=== PATIENT | female | born 1965 | race Caucasian/White ===

== ENCOUNTER → 2017-09-25 | Outpatient (CLI) | payer BC, OTHER ==
[~2017-09-25] MED LIST: ONDA4TAB7 SL
--- NOTE | 2017-09-25 18:15 | DIAGNOSTIC IMAGING REPORT ---
CHEST 2 VIEWS ROUTINE CLINICAL HISTORY: POSSIBLE PNEUMONIA dyspnea COMPARISON STUDY: 06/22/2013 FINDINGS: The bones soft tissues and hemidiaphragms are normal. The cardiomediastinal silhouette is normal. The lungs are clear. The pulmonary vasculature is normal. IMPRESSION: Negative chest. The above report was generated using voice recognition software. It may contain grammatical, syntax or spelling errors. Electronically signed by: Eliseo Hutchinson M.D. 09/25/2017 6:14 PM Dictated Date/Time: 09/25/2017 6:14 PM
== END | disposition home or self-care (01) ==
LOC: C.RAD 17:31
PROVIDERS: ATTEND Family Medicine
DX: R05 Cough (principal)

== ENCOUNTER 2021-05-22 12:35 | Inpatient (IN) ==
[2021-05-22 13:55] LABS: Basophils # (auto) 0.05 K/uL (0-0.2); Basophils % (auto) 0.5 %; Eosinophils # (auto) 0.11 K/uL (0-0.5); Hematocrit (blood only) 45.3 % (37-47); Hemoglobin 15.4 g/dL (12.0-16.0); Immature Granulocytes # (auto) 0.02 K/uL (0.00-0.02); Immature Granulocytes % (auto) 0.2 %; Lymphocytes # (auto) 1.14 K/uL (1.2-3.4); Lymphocytes % (auto) 10.8 %; Mean Corpuscular Hemoglobin 31.9 pg (25-34); Mean Corpuscular Volume 93.8 fL (80-100); Mean Platelet Volume 9.6 fL (7.4-10.4); Monocytes # (auto) 0.74 K/uL (0.11-0.59); Neutrophils % (auto) 80.5 %; Platelet Count 265 K/uL (130-400); RDW Coefficient of Variation 12.3 % (11.5-14.5); RDW Standard Deviation 42.3 fL (36.4-46.3); Red Blood Count 4.83 M/uL (4.2-5.4); White Blood Count 10.56 K/uL (4.8-10.8)
[2021-05-22] MEDS ORDERED: MoRPHine SULFATE 2 MG/ML CARP IV STA (14:17)
[2021-05-22] MEDS ORDERED: ONDANSETRON INJ 2 MG/ML 2 ML VIAL IV STA (14:17)
[2021-05-22] MEDS ORDERED: KETOROLAC TROMETHAMINE 15 MG/ML VIAL IV STA (14:17)
--- NOTE | 2021-05-22 14:28 | Emergency Department Note ---
Impression & Plan Lower abdominal pain, Diverticulitis, Colonic diverticular abscess ED Provider Note NAME: DEBI SIERRA AGE: 55 SEX: F : 1965 ARRIVES VIA: Walk-In INFORMANT: [Patient] ED PROVIDER(S): [Niko Suh MD] CHIEF COMPLAINT: Abdominal pain HISTORY OF PRESENT ILLNESS: The patient is a 55-year-old female presents to the ER with about a week of lower abdominal pain. The pain has at times been severe at a 9/10. The pain does seem somewhat better when she moves her bowels. She has had some loose stools. No urinary or vaginal complaints. No fever, no vomiting. She has not suffered trauma. The patient states that she had a sonogram of her abdomen today, she is not sure of the results. She had lab work last week showing a slight white blood cell count elevation. Today, she was seen by GI and sent to the ER for evaluation and CT scan. REVIEW OF SYSTEMS: See HPI for pertinent positives and negatives. A total of ten systems were reviewed and were otherwise negative. PMHx/PSHx: See Below SOCIAL HISTORY: See Below. PHYSICAL EXAM: GENERAL: Patient is in no acute distress. HEENT: No acute trauma, normocephalic atraumatic, mucous membranes moist, no nasal congestion, no scleral icterus. NECK: No stridor, no adenopathy, no meningismus, trachea is midline. LUNGS: Clear to auscultation bilaterally, no wheeze, no rhonchi, breath sounds equal. HEART: Without murmurs gallops or rubs, regular rate and rhythm. ABDOMEN: Soft, moderately tender in the left lower quadrant, bowel sounds positive, no hernias, no peritonitis. EXTREMITIES: No cyanosis or edema, full range of motion of all the joints without pain or difficulty, no signs for acute trauma. NEUROLOGIC: Oriented x 3, no acute motor or sensory deficits, no focal weakness. SKIN: No rash, no jaundice, no diaphoresis. DIFFERENTIAL DIAGNOSIS: Appendicitis, ovarian cyst, ovarian torsion, ectopic , diverticulitis, UTI, obstruction, mesenteric ischemia, aortic pathology, inflammatory bowel disease, renal colic, PUD, pancreatitis, biliary pathology, hernia, volvulus, constipation, as well as other pathologies. EMERGENCY DEPARTMENT COURSE/PROCEDURES: MEDICAL DECISION MAKING: There is no leukocytosis or concerning anemia. There is a normal platelet count. No significant electrolyte abnormality or renal failure. No worrisome liver enzyme elevation. No evidence for pancreatitis. testing is negative. Urinalysis does not show infection. Covid testing is negative. Abdominal and pelvis CT shows diverticulitis with a small 3 cm diverticular abscess. On exam, the patient was not toxic or febrile. She did not have peritonitis. The patient was ordered for IV Toradol for pain, she was ordered for IV morphine for pain. She was ordered for IV Zofran for nausea. She was ordered for IV Unasyn as antibiotic coverage. I did speak with general surgery. The patient does not need acute surgical intervention. IV antibiotics, a medical admission were suggested. I spoke to the patient about her findings, I spoke with the case therapist. The on-call hospitalist was consulted. Past Med/Surg History Medical History Kidney stones Renal colic Right ureteral stone Surgical History History of lithotripsy Social History Smoking Status: Never smoker Second Hand Exposure: No; Do You Dip or Chew Tobacco: No; Hx Alcohol Use: Yes Alcohol type: wine Hx Substance Use: No Preferred Language: Swedish Communication Ability: Effective Muffler Installer Required: No Beliefs That Will Affect Care: None Current Living Situation: Spouse Feels Safe at Home: Yes Safety Concerns: Feels Safe At This Time Assistive Devices: Contacts and Glasses Allergies Allergies Allergy/AdvReac Type Severity Reaction Status Date / Time No Known Allergies Allergy Unknown Verified 05/22/21 16:04 Home Meds Home Medications Medication Instructions Recorded Confirmed docusate sodium 100 mg capsule 100 mg PO QPM 05/22/21 05/22/21 (Stool Softener) multivitamin 1 tab PO DAILY 05/22/21 05/22/21 Results & Data (ED) Vital Signs Vital Signs - 24 hr 05/22/21 12:41 05/22/21 13:46 05/22/21 15:28 Temperature 37 C Temperature Source Temporal Artery Scan Pulse Rate 95 H Pulse Rate [Right Finger] 76 Respiratory Rate 18 18 Respiratory Effort / Characteristics Non-Labored Spontaneous Non-Labored Spontaneous Respiratory Depth Normal Normal Respiratory Pattern Regular Regular Blood Pressure 112/78 Blood Pressure [Right Arm] 111/71 Blood Pressure Mean 89 Blood Pressure Mean [Right Arm] 84 Blood Pressure Position Sitting Blood Pressure Position [Right Arm] Lying Pulse Oximetry 98 96 Oxygen Delivery Method Room Air Room Air Room Air Sepsis Recent Fever Within 48 Hours No Sepsis New/Unexplained Change in Mental Status N/A Sepsis Action Taken by Nursing No Action Required Home Medications Current Medication List: was personally reviewed by me Laboratory Data Attestation: I reviewed the patient's lab results. Result diagrams: 05/22/21 13:41 05/22/21 13:41 Lab Results 05/22/21 05/22/21 05/22/21 Range/Units 13:41 13:41 13:41 WBC 10.56 (4.8-10.8) K/uL RBC 4.83 (4.2-5.4) M/uL Hgb 15.4 (12.0-16.0) g/dL Hct 45.3 (37-47) % MCV 93.8 (80-100) fL MCH 31.9 (25-34) pg MCHC 34.0 (32-36) g/dL RDW Std Deviation 42.3 (36.4-46.3) fL RDW Coeff of Gris 12.3 (11.5-14.5) % Plt Count 265 (130-400) K/uL MPV 9.6 (7.4-10.4) fL Immature Gran % (Auto) 0.2 % Neut % (Auto) 80.5 % Lymph % (Auto) 10.8 % [place] % (Auto) 7.0 % Eos % (Auto) 1.0 % Baso % (Auto) 0.5 % Neut # (Auto) 8.50 H (1.4-6.5) K/uL Lymph # (Auto) 1.14 L (1.2-3.4) K/uL [place] # (Auto) 0.74 H (0.11-0.59) K/uL Eos # (Auto) 0.11 (0-0.5) K/uL Baso # (Auto) 0.05 (0-0.2) K/uL Immature Gran # (Auto) 0.02 (0.00-0.02) K/uL Sodium 137 (136-145) mmol/L Potassium 3.9 (3.5-5.1) mmol/L Chloride 100 (98-107) mmol/L Carbon Dioxide 28 (21-32) mmol/L Anion Gap 9 (3-11) BUN 7 (6-23) mg/dl Creatinine 0.57 L (0.6-1.2) mg/dl Est Cr Clr Drug Dosing 85.2 ml/min Est GFR ( Amer) 121.0 ml/min Est GFR (Non-Af Amer) 104.4 ml/min BUN/Creatinine Ratio 12.3 (10-20) Glucose 90 (70-99(Fasting)) mg/dl Calcium 9.4 (8.5-10.1) mg/dl Total Bilirubin 0.4 (0.2-1.0) mg/dl AST 16 (13-39) U/L ALT 13 (7-52) U/L Alkaline Phosphatase 69 (34-104) U/L Total Protein 7.8 (6.0-8.3) gm/dl Albumin 4.4 (3.4-5.0) gm/dl Globulin 3.4 (2.5-4.0) gm/dl Albumin/Globulin Ratio 1.3 (0.9-2) Lipase 52 (11-82) U/L HCG, Qual Negative (Negative) Urine Color Urine Appearance (Clear) Urine pH (4.5-7.5) Ur Specific [place] (1.000-1.030) Urine Protein (Negative) Urine Glucose (UA) (Negative) Urine Ketones (Negative) Urine Blood (Negative) Urine Nitrite (Negative) Urine Bilirubin (Negative) Urine Urobilinogen (Negative) Ur Leukocyte Esterase (Negative) 05/22/21 Range/Units 13:55 WBC (4.8-10.8) K/uL RBC (4.2-5.4) M/uL Hgb (12.0-16.0) g/dL Hct (37-47) % MCV (80-100) fL MCH (25-34) pg MCHC (32-36) g/dL RDW Std Deviation (36.4-46.3) fL RDW Coeff of Gris (11.5-14.5) % Plt Count (130-400) K/uL MPV (7.4-10.4) fL Immature Gran % (Auto) % Neut % (Auto) % Lymph % (Auto) % [place] % (Auto) % Eos % (Auto) % Baso % (Auto) % Neut # (Auto) (1.4-6.5) K/uL Lymph # (Auto) (1.2-3.4) K/uL [place] # (Auto) (0.11-0.59) K/uL Eos # (Auto) (0-0.5) K/uL Baso # (Auto) (0-0.2) K/uL Immature Gran # (Auto) (0.00-0.02) K/uL Sodium (136-145) mmol/L Potassium (3.5-5.1) mmol/L Chloride (98-107) mmol/L Carbon Dioxide (21-32) mmol/L Anion Gap (3-11) BUN (6-23) mg/dl Creatinine (0.6-1.2) mg/dl Est Cr Clr Drug Dosing ml/min Est GFR ( Amer) ml/min Est GFR (Non-Af Amer) ml/min BUN/Creatinine Ratio (10-20) Glucose (70-99(Fasting)) mg/dl Calcium (8.5-10.1) mg/dl Total Bilirubin (0.2-1.0) mg/dl AST (13-39) U/L ALT (7-52) U/L Alkaline Phosphatase (34-104) U/L Total Protein (6.0-8.3) gm/dl Albumin (3.4-5.0) gm/dl Globulin (2.5-4.0) gm/dl Albumin/Globulin Ratio (0.9-2) Lipase (11-82) U/L HCG, Qual (Negative) Urine Color Yellow Urine Appearance Clear (Clear) Urine pH 6.0 (4.5-7.5) Ur Specific [place] 1.020 (1.000-1.030) Urine Protein Negative (Negative) Urine Glucose (UA) Negative (Negative) Urine Ketones 1+ H (Negative) Urine Blood Negative (Negative) Urine Nitrite Negative (Negative) Urine Bilirubin Negative (Negative) Urine Urobilinogen Negative (Negative) Ur Leukocyte Esterase Negative (Negative) Administered Medications Discontinued Medications Ampicillin Sodium/Sulbactam Sodium 3,000 mg/ Sodium Chloride 108 mls @ 200 m ls/hr IV NOW STA; Protocol Stop: 05/22/21 17:14 Last Admin: 05/22/21 18:02 Dose: Not Given Documented by: [id number] Piperacillin Sod/Tazobactam Sod (Zosyn) 4.5 gm in 120 mls @ 240 mls/hr IV NOW ONE Stop: 05/22/21 17:29 Last Infusion: 05/22/21 18:05 Dose: 0 mls/hr Documented by: [id number] Admin: 05/22/21 17:31 Dose: 240 mls/hr Documented by: [id number] Lactated Ringer's (Lr) 1,000 mls @ 999 mls/hr IV .Q1H1M ONE Stop: 05/22/21 18:08 Last Infusion: 05/22/21 18:45 Dose: 0 mls/hr Documented by: [id number] Admin: 05/22/21 18:20 Dose: 999 mls/hr Documented by: [id number] Ioversol (Optiray 320 100ml) 94 ml IV ONCE ONE Stop: 05/22/21 15:33 Last Admin: 05/22/21 15:32 Dose: 94 ml Documented by: [id number] Ketorolac Tromethamine (Ketorolac Tromethamine 15 Mg/Ml Vial) 15 mg IV NOW STA Stop: 05/22/21 14:18 Last Admin: 05/22/21 15:22 Dose: Not Given Documented by: [id number] Morphine Sulfate (Morphine Sulfate 2 Mg/Ml [place]) 2 mg IV NOW STA Stop: 05/22/21 14:18 Last Admin: 05/22/21 15:22 Dose: Not Given Documented by: [id number] Ondansetron HCl (Ondansetron Inj 2 Mg/Ml 2 Ml Vial) 4 mg IV NOW STA Stop: 05/22/21 14:18 Last Admin: 05/22/21 15:22 Dose: Not Given Documented by: [id number] Imaging Data Radiologist's Impression: Abdomen/Pelvis CT 05/22/21 14:17 CT SCAN OF THE ABDOMEN AND PELVIS WITH IV CONTRAST CLINICAL HISTORY: Lower abdominal pain. COMPARISON STUDY: Abdominal CT dated 05/27/2013. TECHNIQUE: Following the IV administration of 94 cc of Optiray 320, CT scan of the abdomen and pelvis is performed from the lung bases to the proximal femora. Images are reviewed in the axial, sagittal, and coronal planes. IV contrast was administered without complication. A dose lowering technique was utilized adhering to the principles of ALARA. CT DOSE: 241.03 mGy.cm FINDINGS: Lung bases: The heart is normal in size and without pericardial effusion. The lung bases are clear noting dependent atelectasis. Liver: The contrast-enhanced liver is normal in size, contour, and attenuation. There is no intrahepatic biliary ductal dilatation. The hepatic veins and portal veins are patent. Gallbladder: Unremarkable. Spleen: Normal in size and attenuation. Pancreas: Unremarkable. Adrenal glands: Unremarkable. Kidneys: The contrast enhanced kidneys are normal in size and without hydronephrosis. The kidneys enhance symmetrically. There is a 3 mm nonobstructing left renal calculus. Abdominal vasculature: The abdominal aorta is normal in course and caliber. Bowel: There is mild to moderate sigmoid diverticulosis. There is wall thickening with pericolonic inflammation and fluid involving the lower sigmoid consistent with acute diverticulitis. A diverticular abscess is seen above the sigmoid colon on image #281. This measures 2.5 x 1.9 x 3.0 cm. Mild to moderate fecal retention is seen throughout the colon. No obstruction is identified. The appendix is well-visualized and normal. Peritoneum: There is no intraperitoneal free air or abdominal ascites. There is a fat-containing umbilical hernia. Lymphadenopathy: None. Pelvic viscera: The bladder is decompressed and not well evaluated. The uterus and adnexa are normal as visualized. Skeletal structures: No lytic or blastic lesions are seen. IMPRESSION: 1. There is evidence of sigmoid diverticulitis with a 3.0 cm diverticular absces s. See above. 2. No intraperitoneal free air is identified. 3. Left-sided nephrolithiasis. 4. Additional findings as above. ACT 112: Negative or not required by law. Electronically signed by: Niko Guevara M.D. 05/22/2021 3:42 PM US abdomen complete CLINICAL HISTORY: ABD PAIN TECHNIQUE: Real-time sonographic images of the abdomen were obtained. COMPARISON: None available at the time of this dictation. FINDINGS: The liver is diffusely echogenic in appearance with poor ultrasound penetration, with normal contour, which is consistent with fatty infiltration. There is no intrahepatic ductal dilatation. Gallbladder and biliary tree: Gallbladder polyps are seen measuring up to 0.3 cm. Common bile duct diameter is 0.3 cm. The right kidney measures 10.1 cm in length. The left kidney measures 10.4 cm in length. There is no evidence of hydronephrosis or mass in the bilateral kidneys. Spleen: Spleen measures 9.6 cm in length. Splenule is incidentally noted. The pancreas was normal where visualized without calcification, mass, or ductal dilation. No free fluid was seen in the abdomen. IMPRESSION: Normal study. ACT 112: Negative or not required by law. Electronically signed by: Stephan Barajas M.D. 05/22/2021 9:46 AM Discharge Plan Visit Data Chief Complaint: Abdominal Pain Stated Complaint: SEVERE ABDOMINAL PAIN ED Provider: Niko Suh Discharge Problem: Lower abdominal pain, Diverticulitis, Colonic diverticular abscess Patient Disposition: Admitted As Inpatient Condition: Fair Discharge Instructions Interventions: ED Discharge Assessment Last Done: 05/22/21 18:22
[2021-05-22 14:38] LABS: Albumin Globulin Ratio 1.3 (0.9-2); Albumin Level 4.4 gm/dl (3.4-5.0); BUN Creatinine Ratio 12.3 (10-20); Bilirubin,Total 0.4 mg/dl (0.2-1.0); Calcium 9.4 mg/dl (8.5-10.1); Creatinine Clr Calc Pharmacy 85.2 ml/min; Est GFR (Non-African American) 104.4 ml/min; Globulin 3.4 gm/dl (2.5-4.0); Potassium 3.9 mmol/L (3.5-5.1); Total Protein 7.8 gm/dl (6.0-8.3)
[2021-05-22 14:42] LABS: Pregnancy Test, Serum Negative (Negative)
[2021-05-22] MEDS ORDERED: OPTIRAY 320 100ml IV ONE (15:32)
--- NOTE | 2021-05-22 15:43 | CT Scan Report ---
CT SCAN OF THE ABDOMEN AND PELVIS WITH IV CONTRAST CLINICAL HISTORY: Lower abdominal pain. COMPARISON STUDY: Abdominal CT dated 05/27/2013. TECHNIQUE: Following the IV administration of 94 cc of Optiray 320, CT scan of the abdomen and pelvi s is performed from the lung bases to the proximal femora. Images are reviewed in the axial, sagittal , and coronal planes. IV contrast was administered without complication. A dose lowering technique wa s utilized adhering to the principles of ALARA. CT DOSE: 241.03 mGy.cm FINDINGS: Lung bases: The heart is normal in size and without pericardial effusion. The lung bases are clear no ting dependent atelectasis. Liver: The contrast-enhanced liver is normal in size, contour, and attenuation. There is no intrahepa tic biliary ductal dilatation. The hepatic veins and portal veins are patent. Gallbladder: Unremarkable. Spleen: Normal in size and attenuation. Pancreas: Unremarkable. Adrenal glands: Unremarkable. Kidneys: The contrast enhanced kidneys are normal in size and without hydronephrosis. The kidneys enh ance symmetrically. There is a 3 mm nonobstructing left renal calculus. Abdominal vasculature: The abdominal aorta is normal in course and caliber. Bowel: There is mild to moderate sigmoid diverticulosis. There is wall thickening with pericolonic in flammation and fluid involving the lower sigmoid consistent with acute diverticulitis. A diverticular abscess is seen above the sigmoid colon on image #281. This measures 2.5 x 1.9 x 3.0 cm. Mild to mod erate fecal retention is seen throughout the colon. No obstruction is identified. The appendix is we ll-visualized and normal. Peritoneum: There is no intraperitoneal free air or abdominal ascites. There is a fat-containing umbi lical hernia. Lymphadenopathy: None. Pelvic viscera: The bladder is decompressed and not well evaluated. The uterus and adnexa are normal as visualized. Skeletal structures: No lytic or blastic lesions are seen. IMPRESSION: 1. There is evidence of sigmoid diverticulitis with a 3.0 cm diverticular abscess. See above. 2. No intraperitoneal free air is identified. 3. Left-sided nephrolithiasis. 4. Additional findings as above. ACT 112: Negative or not required by law. Electronically signed by: Niko Guevara M.D. 05/22/2021 3:42 PM
[2021-05-22 15:52] LABS: Appearance Urine Clear (Clear); Bilirubin Urine Negative (Negative); Blood Urine Negative (Negative); Color Urine Yellow; Glucose Urine UA Negative (Negative); Ketones Urine 1+ (Negative); Leukocyte Esterase Urine Negative (Negative); Nitrite Urine Negative (Negative); Protein Urine Negative (Negative); Urobilinogen Urine Negative (Negative)
[2021-05-22] MEDS ORDERED: AMPICILLIN/SULBACTAM SOD 3,000 MG in 0.9 % SODIUM CHLORIDE 100 ML IV STA (16:42)
[2021-05-22] MEDS ORDERED: PIPERACILLIN/TAZOBACTAM 4.5 GM in DEXTROSE 5% 100 ML IV ONE (16:57)
[2021-05-22] MEDS ORDERED: PIPERACILL/TAZOBAC CONSULT ACTIVE PRN (16:57)
[2021-05-22] MEDS ORDERED: PIPERACILLIN/TAZOBACTAM 4.5 GM/120 ML BAG IV ONE (17:00)
--- NOTE | 2021-05-22 17:07 | History & Physical Report ---
Date of Service May 22, 2021 Assessment & Plan (1) Acute diverticulitis: Plan: IV Zosyn NPO LR @ 125 ml/hr Consult surgery due to presence of 3.0cm abscess Plan: VTE Prophylaxis - SCDs, low risk Diet - NPO Disposition - admit to med/surg Admission and Anticipated Discharge Date Admission Date: May 22, 2021 History of Present Illness Chief Complaint: Abdominal pain Primary Care Provider: Le Gutierrez MD Asya Villar is a 55 year old female who presents to the ER with abdominal pain. She reports severe lower abdominal pain, worse on the left side on palpation. Pain has been ongoing for 1 week, but intermittent during this time. Worse after eating. Better on passing gas. She hasn't been eating much due to association with pain. No fever or chills. No prior history of diverticulitis. Prior colonoscopy in 2019 - performed by Dr Limon - patient reports normal at that time. Came to the ER today due to worsening pain especially with US organised by her PCP. In the ER CT A/P showed sigmoid diverticulitis with 3.0cm diverticular abscess, WBC 10.56. She was referred to medicine for admission and ongoing management of sigmoid diverticulitis. Allergies Allergy/AdvReac Type Severity Reaction Status Date / Time No Known Allergies Allergy Unknown Verified 05/22/21 16:04 Home Medications Medication Instructions Recorded Confirmed Type docusate sodium 100 mg capsule 100 mg PO QPM 05/22/21 05/22/21 History (Stool Softener) multivitamin 1 tab PO DAILY 05/22/21 05/22/21 History Past Med/Surg History Medical History Kidney stones Renal colic Right ureteral stone Surgical History History of lithotripsy Social History Smoking Status: Never smoker Second Hand Exposure: No; Do You Dip or Chew Tobacco: No; Hx Alcohol Use: Yes Alcohol type: wine Hx Substance Use: No Preferred Language: Montserratian Communication Ability: Effective Director Account Management Required: No Beliefs That Will Affect Care: None Current Living Situation: Spouse Feels Safe at Home: Yes Safety Concerns: Feels Safe At This Time Assistive Devices: None Review of Systems Review of Systems: All systems reviewed & are unremarkable except as noted in HPI & below Physical Exam Constitutional: WD/WN, vitals as above no acute distress ENMT: external ear and nose normal, oropharynx normal Neck: trachea midline, no thyromegaly Respiratory: normal respiratory effort, lungs clear to auscultation Cardiovascular: RRR, no murmur, no edema Gastrointestinal (Abdomen): Inspection/Auscultation: normal bowel sounds Percussion/Palpation: + abdomen tender (LLQ) and abdomen soft; no guarding and abdomen not rigid Musculoskeletal: no cyanosis or clubbing, extremities motor strength 5/5 Skin: no rashes, warm and dry Neurologic: moves all extremities and awake; not confused Psychiatric: A+Ox3, euthymic affect Genitourinary: no CVA tenderness Results & Data Results & Data ([facility]) Vital Signs (Past 12 Hours) Vital Signs Temp Pulse Pulse Resp BP BP Pulse Ox 05/22/21 15:28 76 18 111/71 96 05/22/21 12:41 37 C 95 H 18 112/78 98 Laboratory Results Abnormal lab results 05/22/21 05/22/21 05/22/21 Range/Units 13:41 13:41 13:55 Neut # (Auto) 8.50 H (1.4-6.5) K/uL Lymph # (Auto) 1.14 L (1.2-3.4) K/uL [place] # (Auto) 0.74 H (0.11-0.59) K/uL Creatinine 0.57 L (0.6-1.2) mg/dl Urine Ketones 1+ H (Negative) Diagnostic Findings CT SCAN OF THE ABDOMEN AND PELVIS WITH IV CONTRAST CLINICAL HISTORY: Lower abdominal pain. COMPARISON STUDY: Abdominal CT dated 05/27/2013. TECHNIQUE: Following the IV administration of 94 cc of Optiray 320, CT scan of the abdomen and pelvis is performed from the lung bases to the proximal femora. Images are reviewed in the axial, sagittal, and coronal planes. IV contrast was administered without complication. A dose lowering technique was utilized adhering to the principles of ALARA. CT DOSE: 241.03 mGy.cm FINDINGS: Lung bases: The heart is normal in size and without pericardial effusion. The lung bases are clear noting dependent atelectasis. Liver: The contrast-enhanced liver is normal in size, contour, and attenuation. There is no intrahepatic biliary ductal dilatation. The hepatic veins and portal veins are patent. Gallbladder: Unremarkable. Spleen: Normal in size and attenuation. Pancreas: Unremarkable. Adrenal glands: Unremarkable. Kidneys: The contrast enhanced kidneys are normal in size and without hydronephrosis. The kidneys enhance symmetrically. There is a 3 mm nonobstructing left renal calculus. Abdominal vasculature: The abdominal aorta is normal in course and caliber. Bowel: There is mild to moderate sigmoid diverticulosis. There is wall thickening with pericolonic inflammation and fluid involving the lower sigmoid consistent with acute diverticulitis. A diverticular abscess is seen above the sigmoid colon on image #281. This measures 2.5 x 1.9 x 3.0 cm. Mild to moderate fecal retention is seen throughout the colon. No obstruction is identified. The appendix is well-visualized and normal. Peritoneum: There is no intraperitoneal free air or abdominal ascites. There is a fat-containing umbilical hernia. Lymphadenopathy: None. Pelvic viscera: The bladder is decompressed and not well evaluated. The uterus and adnexa are normal as visualized. Skeletal structures: No lytic or blastic lesions are seen. IMPRESSION: 1. There is evidence of sigmoid diverticulitis with a 3.0 cm diverticular abscess. See above. 2. No intraperitoneal free air is identified. 3. Left-sided nephrolithiasis. 4. Additional findings as above. Medications Administered ER Medications Given: Toradol 15mg IV Morphine 2mg IV Ondansetron 4mg IV Code Status & VTE Plan Code Status Full VTE Prophylaxis Plan VTE Prophylaxis will be ordered: Yes PG Care Time/CCT Total # of Minutes Spent Total Time Spent with Patient: Total time spent is greater than 50% in coordination of care (as documented) at patient's floor/unit and/or counseling patient: Coding Level of Care Code 33762 Initial Inpt Care Lvl 2 Diagnoses Acute diverticulitis K57.92
[2021-05-22] MEDS ORDERED: LACTATED RINGER'S 1,000 ML IV ONE (17:08)
--- NOTE | 2021-05-22 17:35 | Surgery Consultation ---
Date of Consultation May 22, 2021 Assessment & Plan (1) Acute diverticulitis: (2) Diverticular disease of intestine with perforation and abscess: 55-year-old woman presents with diverticulitis and abscess. The abscess measures 3 cm. It is contained. She has local pain but no peritoneal signs. I discussed with her diverticulitis as well as the classification system with treatment strategies. We will start her on IV antibiotics and clear liquids. We will monitor her for now. If she does not improve or worsens, she will need a repeat CT scan. If the abscess enlarges, she may require drain placement by interventional radiology. We will continue to monitor her. History of Present Illness Reason for Consultation: Diverticulitis with abscess Requesting Physician: Niko Suh MD Attending Physician: Niko Suh MD History of Present Illness 55-year-old woman presents with 1 week history of left-sided lower quadrant abdominal pain, worsening throughout the week. She denies nausea or vomiting. She denies chest pain or shortness of breath. She denies fevers and chills. She denies changes in her bowel habits. She had a colonoscopy 2 years ago which was normal. She had an ultrasound yesterday which was exquisitely painful, which prompted the visit to the emergency department. CT scan demonstrates diverticulitis with 3 cm contained abscess Allergies Allergy/AdvReac Type Severity Reaction Status Date / Time No Known Allergies Allergy Unknown Verified 05/22/21 16:04 Home Medications Medication Instructions Recorded Confirmed Type docusate sodium 100 mg capsule 100 mg PO QPM 05/22/21 05/22/21 History (Stool Softener) multivitamin 1 tab PO DAILY 05/22/21 05/22/21 History Patient History Medical History Kidney stones Renal colic Right ureteral stone Surgical History History of lithotripsy Social History Smoking Status: Never smoker Feels Safe at Home: Yes Review of Systems Review of Systems: All systems reviewed & are unremarkable except as noted in HPI & below Physical Exam Constitutional: WD/WN, vitals as above Neck: trachea midline, no thyromegaly Respiratory: normal respiratory effort; no respiratory distress and no labored breathing Cardiovascular: Rate/Rhythm: regular rate and regular rhythm Gastrointestinal (Abdomen): Inspection/Auscultation: abdomen normal to inspection; abdomen not distended Percussion/Palpation: + abdomen tender (Left lower quadrant) and abdomen soft; no guarding and abdomen not rigid Musculoskeletal: Extremities: no cyanosis and no clubbing Skin: no rashes, warm and dry Psychiatric: A+Ox3, euthymic affect Results & Data ([facility]) Vital Signs (Past 12 Hours) Vital Signs Temp Pulse Pulse Resp BP BP Pulse Ox 05/22/21 15:28 76 18 111/71 96 05/22/21 12:41 37 C 95 H 18 112/78 98 Laboratory Results 05/22/21 05/22/21 05/22/21 Range/Units 13:55 13:41 13:41 WBC (4.8-10.8) K/uL RBC (4.2-5.4) M/uL Hgb (12.0-16.0) g/dL Hct (37-47) % MCV (80-100) fL MCH (25-34) pg MCHC (32-36) g/dL RDW Std Deviation (36.4-46.3) fL RDW Coeff of Gris (11.5-14.5) % Plt Count (130-400) K/uL MPV (7.4-10.4) fL Immature Gran % (Auto) % Neut % (Auto) % Lymph % (Auto) % [place] % (Auto) % Eos % (Auto) % Baso % (Auto) % Neut # (Auto) (1.4-6.5) K/uL Lymph # (Auto) (1.2-3.4) K/uL [place] # (Auto) (0.11-0.59) K/uL Eos # (Auto) (0-0.5) K/uL Baso # (Auto) (0-0.2) K/uL Immature Gran # (Auto) (0.00-0.02) K/uL Sodium 137 (136-145) mmol/L Potassium 3.9 (3.5-5.1) mmol/L Chloride 100 (98-107) mmol/L Carbon Dioxide 28 (21-32) mmol/L Anion Gap 9 (3-11) BUN 7 (6-23) mg/dl Creatinine 0.57 L (0.6-1.2) mg/dl Est Cr Clr Drug Dosing 85.2 ml/min Est GFR ( Amer) 121.0 ml/min Est GFR (Non-Af Amer) 104.4 ml/min BUN/Creatinine Ratio 12.3 (10-20) Glucose 90 (70-99(Fasting)) mg/dl Calcium 9.4 (8.5-10.1) mg/dl Total Bilirubin 0.4 (0.2-1.0) mg/dl AST 16 (13-39) U/L ALT 13 (7-52) U/L Alkaline Phosphatase 69 (34-104) U/L Total Protein 7.8 (6.0-8.3) gm/dl Albumin 4.4 (3.4-5.0) gm/dl Globulin 3.4 (2.5-4.0) gm/dl Albumin/Globulin Ratio 1.3 (0.9-2) Lipase 52 (11-82) U/L HCG, Qual Negative (Negative) Urine Color Yellow Urine Appearance Clear (Clear) Urine pH 6.0 (4.5-7.5) Ur Specific [place] 1.020 (1.000-1.030) Urine Protein Negative (Negative) Urine Glucose (UA) Negative (Negative) Urine Ketones 1+ H (Negative) Urine Blood Negative (Negative) Urine Nitrite Negative (Negative) Urine Bilirubin Negative (Negative) Urine Urobilinogen Negative (Negative) Ur Leukocyte Esterase Negative (Negative) 05/22/21 Range/Units 13:41 WBC 10.56 (4.8-10.8) K/uL RBC 4.83 (4.2-5.4) M/uL Hgb 15.4 (12.0-16.0) g/dL Hct 45.3 (37-47) % MCV 93.8 (80-100) fL MCH 31.9 (25-34) pg MCHC 34.0 (32-36) g/dL RDW Std Deviation 42.3 (36.4-46.3) fL RDW Coeff of Gris 12.3 (11.5-14.5) % Plt Count 265 (130-400) K/uL MPV 9.6 (7.4-10.4) fL Immature Gran % (Auto) 0.2 % Neut % (Auto) 80.5 % Lymph % (Auto) 10.8 % [place] % (Auto) 7.0 % Eos % (Auto) 1.0 % Baso % (Auto) 0.5 % Neut # (Auto) 8.50 H (1.4-6.5) K/uL Lymph # (Auto) 1.14 L (1.2-3.4) K/uL [place] # (Auto) 0.74 H (0.11-0.59) K/uL Eos # (Auto) 0.11 (0-0.5) K/uL Baso # (Auto) 0.05 (0-0.2) K/uL Immature Gran # (Auto) 0.02 (0.00-0.02) K/uL Sodium (136-145) mmol/L Potassium (3.5-5.1) mmol/L Chloride (98-107) mmol/L Carbon Dioxide (21-32) mmol/L Anion Gap (3-11) BUN (6-23) mg/dl Creatinine (0.6-1.2) mg/dl Est Cr Clr Drug Dosing ml/min Est GFR ( Amer) ml/min Est GFR (Non-Af Amer) ml/min BUN/Creatinine Ratio (10-20) Glucose (70-99(Fasting)) mg/dl Calcium (8.5-10.1) mg/dl Total Bilirubin (0.2-1.0) mg/dl AST (13-39) U/L ALT (7-52) U/L Alkaline Phosphatase (34-104) U/L Total Protein (6.0-8.3) gm/dl Albumin (3.4-5.0) gm/dl Globulin (2.5-4.0) gm/dl Albumin/Globulin Ratio (0.9-2) Lipase (11-82) U/L HCG, Qual (Negative) Urine Color Urine Appearance (Clear) Urine pH (4.5-7.5) Ur Specific [place] (1.000-1.030) Urine Protein (Negative) Urine Glucose (UA) (Negative) Urine Ketones (Negative) Urine Blood (Negative) Urine Nitrite (Negative) Urine Bilirubin (Negative) Urine Urobilinogen (Negative) Ur Leukocyte Esterase (Negative) Diagnostic Findings CT SCAN OF THE ABDOMEN AND PELVIS WITH IV CONTRAST CLINICAL HISTORY: Lower abdominal pain. COMPARISON STUDY: Abdominal CT dated 05/27/2013. TECHNIQUE: Following the IV administration of 94 cc of Optiray 320, CT scan of the abdomen and pelvis is performed from the lung bases to the proximal femora. Images are reviewed in the axial, sagittal, and coronal planes. IV contrast was administered without complication. A dose lowering technique was utilized adhering to the principles of ALARA. CT DOSE: 241.03 mGy.cm FINDINGS: Lung bases: The heart is normal in size and without pericardial effusion. The lung bases are clear noting dependent atelectasis. Liver: The contrast-enhanced liver is normal in size, contour, and attenuation. There is no intrahepatic biliary ductal dilatation. The hepatic veins and portal veins are patent. Gallbladder: Unremarkable. Spleen: Normal in size and attenuation. Pancreas: Unremarkable. Adrenal glands: Unremarkable. Kidneys: The contrast enhanced kidneys are normal in size and without hydronephrosis. The kidneys enhance symmetrically. There is a 3 mm nonobstructing left renal calculus. Abdominal vasculature: The abdominal aorta is normal in course and caliber. Bowel: There is mild to moderate sigmoid diverticulosis. There is wall thickening with pericolonic inflammation and fluid involving the lower sigmoid consistent with acute diverticulitis. A diverticular abscess is seen above the sigmoid colon on image #281. This measures 2.5 x 1.9 x 3.0 cm. Mild to moderate fecal retention is seen throughout the colon. No obstruction is identified. The appendix is well-visualized and normal. Peritoneum: There is no intraperitoneal free air or abdominal ascites. There is a fat-containing umbilical hernia. Lymphadenopathy: None. Pelvic viscera: The bladder is decompressed and not well evaluated. The uterus and adnexa are normal as visualized. Skeletal structures: No lytic or blastic lesions are seen. IMPRESSION: 1. There is evidence of sigmoid diverticulitis with a 3.0 cm diverticular abscess. See above. 2. No intraperitoneal free air is identified. 3. Left-sided nephrolithiasis. 4. Additional findings as above.
[2021-05-22] MEDS ORDERED: ONDANSETRON INJ 2 MG/ML 2 ML VIAL IV PRN (18:37)
[2021-05-22] MEDS ORDERED: ACETAMINOPHEN 1,000 MG/100 ML VIAL IV PRN (18:37)
[2021-05-22] MEDS ORDERED: MoRPHine SULFATE 4 MG/ML 1 ML CARP\\VIAL IV PRN (18:37)
[2021-05-22] MEDS: LACTATED RINGER'S 1,000 ML IV SCH (19:45)
[2021-05-22] MEDS: PIPERACILLIN/TAZOBACTAM 3.375 GM in DEXTROSE 5% 100 ML IV SCH (22:57)
[2021-05-23] MEDS: LACTATED RINGER'S 1,000 ML IV SCH ×3 (02:39→18:24)
[2021-05-23] MEDS: PIPERACILLIN/TAZOBACTAM 3.375 GM in DEXTROSE 5% 100 ML IV SCH ×3 (06:24→22:02)
--- NOTE | 2021-05-23 07:31 | Hospitalist Progress Note ---
Date of Service May 23, 2021 Assessment & Plan (1) Acute diverticulitis: Plan: Asya is a 55 year old female w/ PmHx significant for kidney stones admitted for diverticulitis with abscess. Acute Diverticulitis w/ Abscess: -CT Abd/pelv: evidence of sigmoid diverticulitis w/ 3.0cm abscess. -Given 3g Amp/sulbactam in ED. Switched to Pip/tazo 3.375g q8h. -Surgery consulted: -Continue supportive care, advance to clear liquid diet. -If worsening may consider repeat CT scan. -On LR 125ml/hr, can D/C if tolerating liquid diet. -Reassess condition in AM. Dispo: Med/Surg DVT Prophylaxis: SCDs F/E/N: Advance to clear liquid diet Consults: Surgery Code Status: Full (2) Lower abdominal pain: (3) Colonic diverticular abscess: Admission and Anticipated Discharge Date Admission Date: May 22, 2021 Supervising Physician Co-Signing Physician Notes Resident Physician Supervision Note: I independently interviewed and examined the patient and verified the yates history and physical, reviewed labs and image studies and agree with resident Dr. Quinones findings and care plan. Subjective No overnight events. Patient says she doesn't have pain at her left side anymore, or if anything may be a 1/10. Denies fevers, chills, nausea, vomiting, constipation, diarrhea. Review of Systems Review of Systems: as per subjective. Physical Exam Constitutional: WD/WN, vitals as above Eyes: PERRL, conjunctivae normal, anicteric sclerae Respiratory: normal respiratory effort, lungs clear to auscultation Cardiovascular: RRR, no murmur, no edema Gastrointestinal (Abdomen): BS+, soft, non-distended, mild tenderness to palpation left lower quadrant without guarding. Results & Data Results & Data ([facility]) Vital Signs (Past 12 Hours) Vital Signs Temp Pulse Resp BP Pulse Ox 05/22/21 22:18 36.7 C 75 17 94/58 L 96 Resident Activity Tracking Resident Involvement: Resident Care Provided Care Provided: Adult [facility]
[2021-05-23 08:21] LABS: Basophils # (auto) 0.05 K/uL (0-0.2); Basophils % (auto) 0.7 %; Eosinophils # (auto) 0.12 K/uL (0-0.5); Eosinophils % (auto) 1.6 %; Hematocrit (blood only) 37.8 % (37-47); Hemoglobin 13.3 g/dL (12.0-16.0); Immature Granulocytes # (auto) 0.02 K/uL (0.00-0.02); Immature Granulocytes % (auto) 0.3 %; Lymphocytes # (auto) 1.24 K/uL (1.2-3.4); Lymphocytes % (auto) 16.8 %; Mean Corpuscular Hemoglobin 32.7 pg (25-34); Mean Corpuscular Hgb Conc 35.2 g/dL (32-36); Mean Corpuscular Volume 92.9 fL (80-100); Mean Platelet Volume 9.5 fL (7.4-10.4); Monocytes # (auto) 0.64 K/uL (0.11-0.59); Monocytes % (auto) 8.7 %; Neutrophils # (auto) 5.31 K/uL (1.4-6.5); Neutrophils % (auto) 71.9 %; Platelet Count 239 K/uL (130-400); RDW Coefficient of Variation 12.4 % (11.5-14.5); RDW Standard Deviation 42.2 fL (36.4-46.3); Red Blood Count 4.07 M/uL (4.2-5.4); White Blood Count 7.38 K/uL (4.8-10.8)
[2021-05-23 08:47] LABS: Calcium 8.6 mg/dl (8.5-10.1); Creatinine Clr Calc Pharmacy 88.8 ml/min; Est GFR (African American) 123.1 ml/min; Est GFR (Non-African American) 106.2 ml/min; Potassium 3.8 mmol/L (3.5-5.1)
--- NOTE | 2021-05-23 11:27 | Surgery Progress Note ---
Date of Service May 23, 2021 Assessment & Plan (1) Acute diverticulitis: (2) Diverticular disease of intestine with perforation and abscess: Plan: 55-year-old woman with complicated diverticulitis with abscess Afebrile, no leukocytosis Abdominal pain improving and controlled Plan: Continue pain management as needed Continue IV fluids Continue IV Zosyn Advance to clear liquid diet Encourage ambulation and out of bed to chair Continue medical management We will continue to follow Dr. Russell has seen and examined patient and agrees with above Admission and Anticipated Discharge Date Admission Date: May 22, 2021 Supervising Physician Co-Signing Physician Notes I have seen and examined the patient, and agree with the above assessment and plan. She is improving with IV antibiotics. We will continue the IV antibiotics for now. No surgical intervention is required at this time. Hopefully she will be able to be discharged home on oral antibiotics in the next day or so. Subjective Feeling better today Still having pain in the left lower abdomen but is better and minimal not requiring much pain medication No nausea, no vomiting Liquid bowel movements without blood No fevers or chills Physical Exam 2 Constitutional: WD/WN, vitals as above no acute distress and not ill appearing Neck: normal visual inspection and trachea midline Respiratory: normal respiratory effort; no respiratory distress, no labored breathing and no retractions Gastrointestinal (Abdomen): Inspection/Auscultation: abdomen normal to inspection; abdomen not distended Percussion/Palpation: + abdomen tender (Left lower quadrant on deep palpation) and abdomen soft; no guarding and abdomen not rigid Skin: no rashes, warm and dry Psychiatric: A+Ox3, euthymic affect Results & Data ([facility]) Vital Signs (Past 12 Hours) Vital Signs Temp Pulse Resp BP Pulse Ox 05/23/21 11:21 36.6 C 64 17 100/63 98 05/23/21 08:18 36.6 C 70 18 107/65 98 Laboratory Results 05/23/21 05/23/21 05/22/21 Range/Units 07:53 07:53 Unknown WBC 7.38 (4.8-10.8) K/uL RBC 4.07 L (4.2-5.4) M/uL Hgb 13.3 (12.0-16.0) g/dL Hct 37.8 (37-47) % MCV 92.9 (80-100) fL MCH 32.7 (25-34) pg MCHC 35.2 (32-36) g/dL RDW Std Deviation 42.2 (36.4-46.3) fL RDW Coeff of Gris 12.4 (11.5-14.5) % Plt Count 239 (130-400) K/uL MPV 9.5 (7.4-10.4) fL Immature Gran % (Auto) 0.3 % Neut % (Auto) 71.9 % Lymph % (Auto) 16.8 % [place] % (Auto) 8.7 % Eos % (Auto) 1.6 % Baso % (Auto) 0.7 % Neut # (Auto) 5.31 (1.4-6.5) K/uL Lymph # (Auto) 1.24 (1.2-3.4) K/uL [place] # (Auto) 0.64 H (0.11-0.59) K/uL Eos # (Auto) 0.12 (0-0.5) K/uL Baso # (Auto) 0.05 (0-0.2) K/uL Immature Gran # (Auto) 0.02 (0.00-0.02) K/uL Sodium 140 (136-145) mmol/L Potassium 3.8 (3.5-5.1) mmol/L Chloride 105 (98-107) mmol/L Carbon Dioxide 27 (21-32) mmol/L Anion Gap 8 (3-11) BUN 7 (6-23) mg/dl Creatinine 0.54 L (0.6-1.2) mg/dl Est Cr Clr Drug Dosing 88.8 ml/min Est GFR ( Amer) 123.1 ml/min Est GFR (Non-Af Amer) 106.2 ml/min BUN/Creatinine Ratio 13.0 (10-20) Glucose 74 (70-99(Fasting)) mg/dl Calcium 8.6 (8.5-10.1) mg/dl Total Bilirubin (0.2-1.0) mg/dl AST (13-39) U/L ALT (7-52) U/L Alkaline Phosphatase (34-104) U/L Total Protein (6.0-8.3) gm/dl Albumin (3.4-5.0) gm/dl Globulin (2.5-4.0) gm/dl Albumin/Globulin Ratio (0.9-2) Lipase (11-82) U/L HCG, Qual (Negative) Urine Color Urine Appearance (Clear) Urine pH (4.5-7.5) Ur Specific [place] (1.000-1.030) Urine Protein (Negative) Urine Glucose (UA) (Negative) Urine Ketones (Negative) Urine Blood (Negative) Urine Nitrite (Negative) Urine Bilirubin (Negative) Urine Urobilinogen (Negative) Ur Leukocyte Esterase (Negative) SARS-CoV-2, RNA, NAAT NEGATIVE (NEGATIVE) 05/22/21 05/22/21 05/22/21 Range/Units 13:55 13:41 13:41 WBC (4.8-10.8) K/uL RBC (4.2-5.4) M/uL Hgb (12.0-16.0) g/dL Hct (37-47) % MCV (80-100) fL MCH (25-34) pg MCHC (32-36) g/dL RDW Std Deviation (36.4-46.3) fL RDW Coeff of Gris (11.5-14.5) % Plt Count (130-400) K/uL MPV (7.4-10.4) fL Immature Gran % (Auto) % Neut % (Auto) % Lymph % (Auto) % [place] % (Auto) % Eos % (Auto) % Baso % (Auto) % Neut # (Auto) (1.4-6.5) K/uL Lymph # (Auto) (1.2-3.4) K/uL [place] # (Auto) (0.11-0.59) K/uL Eos # (Auto) (0-0.5) K/uL Baso # (Auto) (0-0.2) K/uL Immature Gran # (Auto) (0.00-0.02) K/uL Sodium 137 (136-145) mmol/L Potassium 3.9 (3.5-5.1) mmol/L Chloride 100 (98-107) mmol/L Carbon Dioxide 28 (21-32) mmol/L Anion Gap 9 (3-11) BUN 7 (6-23) mg/dl Creatinine 0.57 L (0.6-1.2) mg/dl Est Cr Clr Drug Dosing 85.2 ml/min Est GFR ( Amer) 121.0 ml/min Est GFR (Non-Af Amer) 104.4 ml/min BUN/Creatinine Ratio 12.3 (10-20) Glucose 90 (70-99(Fasting)) mg/dl Calcium 9.4 (8.5-10.1) mg/dl Total Bilirubin 0.4 (0.2-1.0) mg/dl AST 16 (13-39) U/L ALT 13 (7-52) U/L Alkaline Phosphatase 69 (34-104) U/L Total Protein 7.8 (6.0-8.3) gm/dl Albumin 4.4 (3.4-5.0) gm/dl Globulin 3.4 (2.5-4.0) gm/dl Albumin/Globulin Ratio 1.3 (0.9-2) Lipase 52 (11-82) U/L HCG, Qual Negative (Negative) Urine Color Yellow Urine Appearance Clear (Clear) Urine pH 6.0 (4.5-7.5) Ur Specific [place] 1.020 (1.000-1.030) Urine Protein Negative (Negative) Urine Glucose (UA) Negative (Negative) Urine Ketones 1+ H (Negative) Urine Blood Negative (Negative) Urine Nitrite Negative (Negative) Urine Bilirubin Negative (Negative) Urine Urobilinogen Negative (Negative) Ur Leukocyte Esterase Negative (Negative) SARS-CoV-2, RNA, NAAT (NEGATIVE) 05/22/21 Range/Units 13:41 WBC 10.56 (4.8-10.8) K/uL RBC 4.83 (4.2-5.4) M/uL Hgb 15.4 (12.0-16.0) g/dL Hct 45.3 (37-47) % MCV 93.8 (80-100) fL MCH 31.9 (25-34) pg MCHC 34.0 (32-36) g/dL RDW Std Deviation 42.3 (36.4-46.3) fL RDW Coeff of Gris 12.3 (11.5-14.5) % Plt Count 265 (130-400) K/uL MPV 9.6 (7.4-10.4) fL Immature Gran % (Auto) 0.2 % Neut % (Auto) 80.5 % Lymph % (Auto) 10.8 % [place] % (Auto) 7.0 % Eos % (Auto) 1.0 % Baso % (Auto) 0.5 % Neut # (Auto) 8.50 H (1.4-6.5) K/uL Lymph # (Auto) 1.14 L (1.2-3.4) K/uL [place] # (Auto) 0.74 H (0.11-0.59) K/uL Eos # (Auto) 0.11 (0-0.5) K/uL Baso # (Auto) 0.05 (0-0.2) K/uL Immature Gran # (Auto) 0.02 (0.00-0.02) K/uL Sodium (136-145) mmol/L Potassium (3.5-5.1) mmol/L Chloride (98-107) mmol/L Carbon Dioxide (21-32) mmol/L Anion Gap (3-11) BUN (6-23) mg/dl Creatinine (0.6-1.2) mg/dl Est Cr Clr Drug Dosing ml/min Est GFR ( Amer) ml/min Est GFR (Non-Af Amer) ml/min BUN/Creatinine Ratio (10-20) Glucose (70-99(Fasting)) mg/dl Calcium (8.5-10.1) mg/dl Total Bilirubin (0.2-1.0) mg/dl AST (13-39) U/L ALT (7-52) U/L Alkaline Phosphatase (34-104) U/L Total Protein (6.0-8.3) gm/dl Albumin (3.4-5.0) gm/dl Globulin (2.5-4.0) gm/dl Albumin/Globulin Ratio (0.9-2) Lipase (11-82) U/L HCG, Qual (Negative) Urine Color Urine Appearance (Clear) Urine pH (4.5-7.5) Ur Specific [place] (1.000-1.030) Urine Protein (Negative) Urine Glucose (UA) (Negative) Urine Ketones (Negative) Urine Blood (Negative) Urine Nitrite (Negative) Urine Bilirubin (Negative) Urine Urobilinogen (Negative) Ur Leukocyte Esterase (Negative) SARS-CoV-2, RNA, NAAT (NEGATIVE)
[2021-05-24] MEDS: LACTATED RINGER'S 1,000 ML IV SCH ×3 (01:51→17:51)
[2021-05-24] MEDS: PIPERACILLIN/TAZOBACTAM 3.375 GM in DEXTROSE 5% 100 ML IV SCH ×3 (06:26→22:45)
--- NOTE | 2021-05-24 08:21 | Hospitalist Progress Note ---
Date of Service May 24, 2021 Assessment & Plan (1) Acute diverticulitis: Plan: Asya is a 55 year old female w/ PmHx significant for kidney stones admitted for diverticulitis with abscess. Acute Diverticulitis w/ Abscess: -CT Abd/pelv: evidence of sigmoid diverticulitis w/ 3.0cm abscess. -Given 3g Amp/sulbactam in ED. Switched to Pip/tazo 3.375g q8h. -Surgery consulted: -Continue supportive care, advance to clear liquid diet. -If worsening may consider repeat CT scan. -Tolerating diet well, D/C'ed IVF. -Reassess condition in AM. Dispo: Med/Surg DVT Prophylaxis: SCDs F/E/N: Advance to clear liquid diet Consults: Surgery Code Status: Full (2) Lower abdominal pain: (3) Colonic diverticular abscess: Admission and Anticipated Discharge Date Admission Date: May 22, 2021 Supervising Physician Co-Signing Physician Notes Resident Physician Supervision Note: I independently interviewed and examined the patient and verified the yates history and physical, reviewed labs and image studies and agree with resident Dr. Quinones findings and care plan. Subjective No overnight events. Patient feeling well today as well, without pain at the LLQ except when there is pressure on the area. Patient has passed gas over the past day. Denies fevers, chills, diarrhea, shortness of breath. Review of Systems Review of Systems: As per subjective. Physical Exam Constitutional: WD/WN, vitals as above Eyes: PERRL, conjunctivae normal, anicteric sclerae Respiratory: normal respiratory effort, lungs clear to auscultation Cardiovascular: RRR, no murmur, no edema Gastrointestinal (Abdomen): BS+, soft, non-distended, mild tenderness to palpation without guarding. Results & Data Results & Data ([facility]) Vital Signs (Past 12 Hours) Vital Signs Temp Pulse Resp BP Pulse Ox 05/24/21 07:20 36.7 C 57 L 14 99/59 L 96 05/23/21 22:31 36.5 C 57 L 16 101/57 L 96 Resident Activity Tracking Resident Involvement: Resident Care Provided Care Provided: Adult [facility]
[2021-05-24] MEDS ORDERED: ACETAMINOPHEN 325 MG TAB PO PRN (08:44)
--- NOTE | 2021-05-24 08:44 | Surgery Progress Note ---
Date of Service May 24, 2021 Assessment & Plan (1) Acute diverticulitis: (2) Diverticular disease of intestine with perforation and abscess: Plan: 55-year-old woman with complicated diverticulitis with abscess Afebrile, no leukocytosis Abdominal pain improving and controlled + bowel function Plan: Continue pain management as needed Continue IV Zosyn probably for 1 more day Advance to full liquid Encourage ambulation and out of bed to chair Continue medical management We will continue to follow Discussed with Dr. Russell who will evaluate patient later today Admission and Anticipated Discharge Date Admission Date: May 22, 2021 Supervising Physician Co-Signing Physician Notes I have seen and examined the patient personally and I agree with the above assessment and plan. Continue IV antibiotics, advance diet to full liquid. Possible discharge to home tomorrow on oral antibiotics. Subjective Feeling better today Lower abdominal soreness is still present but not worse than yesterday Not requiring any pain medication No nausea no vomiting Passing gas and having liquid stool Having some abdominal pain after bowel movement No fevers or chills Tolerated clear liquids yesterday Physical Exam Constitutional: WD/WN, vitals as above no acute distress and not ill appearing Neck: normal visual inspection and trachea midline Respiratory: normal respiratory effort; no respiratory distress, no labored breathing and no retractions Gastrointestinal (Abdomen): Inspection/Auscultation: abdomen normal to inspection and normal bowel sounds; abdomen not distended Percussion/Palpation: + abdomen tender (LLQ on deep palpation, improving) and abdomen soft; no guarding and abdomen not rigid Skin: no rashes, warm and dry Psychiatric: A+Ox3, euthymic affect Results & Data ([facility]) Vital Signs (Past 12 Hours) Vital Signs Temp Pulse Resp BP Pulse Ox 05/24/21 07:20 36.7 C 57 L 14 99/59 L 96 05/23/21 22:31 36.5 C 57 L 16 101/57 L 96 Laboratory Results 05/23/21 Range/Units 07:53 Sodium 140 (136-145) mmol/L Potassium 3.8 (3.5-5.1) mmol/L Chloride 105 (98-107) mmol/L Carbon Dioxide 27 (21-32) mmol/L Anion Gap 8 (3-11) BUN 7 (6-23) mg/dl Creatinine 0.54 L (0.6-1.2) mg/dl Est Cr Clr Drug Dosing 88.8 ml/min Est GFR ( Amer) 123.1 ml/min Est GFR (Non-Af Amer) 106.2 ml/min BUN/Creatinine Ratio 13.0 (10-20) Glucose 74 (70-99(Fasting)) mg/dl Calcium 8.6 (8.5-10.1) mg/dl
[2021-05-25] MEDS: PIPERACILLIN/TAZOBACTAM 3.375 GM in DEXTROSE 5% 100 ML IV SCH (06:38)
--- NOTE | 2021-05-25 08:56 | Surgery Progress Note ---
Date of Service May 25, 2021 Assessment & Plan (1) Acute diverticulitis: (2) Diverticular disease of intestine with perforation and abscess: Plan: 55-year-old woman with complicated diverticulitis with abscess Afebrile abdominal pain significantly improved, no tenderness on exam today Plan: Okay from surgical standpoint for discharge low fiber diet for 2-4 weeks Needs outpatient colonoscopy in 8 weeks Follow-up surgery office in [address] Russell has seen patient and agrees with above. Admission and Anticipated Discharge Date Admission Date: May 22, 2021 Supervising Physician Co-Signing Physician Notes I have seen and examined the patient personally and agree with the above assessment and plan. She may be discharged home on oral antibiotics. She will need outpatient colonoscopy and follow-up with surgery in a few weeks. Subjective feeling good, still having some discomfort in left lower abdomen prior to bowel movements but not severe tolerating low fiber diet no nausea or vomiting Physical Exam Constitutional: WD/WN, vitals as above no acute distress and not ill appearing Neck: normal visual inspection and trachea midline Respiratory: normal respiratory effort; no respiratory distress and no labored breathing Gastrointestinal (Abdomen): Inspection/Auscultation: abdomen normal to inspection; abdomen not distended Percussion/Palpation: abdomen soft; abdomen nontender, no guarding and abdomen not rigid Skin: no rashes, warm and dry Psychiatric: A+Ox3, euthymic affect Results & Data ([facility]) Vital Signs (Past 12 Hours) Vital Signs Temp Pulse Resp BP Pulse Ox 05/25/21 08:05 36.2 C L 65 16 120/74 96 05/24/21 22:36 37 C 56 L 16 116/76 100
--- NOTE | 2021-05-25 11:46 | Discharge Summary ---
Date of Service May 25, 2021 Admission HPI Per Admitting Provider Asya Villar is a 55 year old female who presents to the ER with abdominal pain. She reports severe lower abdominal pain, worse on the left side on palpation. Pain has been ongoing for 1 week, but intermittent during this time. Worse after eating. Better on passing gas. She hasn't been eating much due to association with pain. No fever or chills. No prior history of diverticulitis. Prior colonoscopy in 2019 - performed by Dr Limon - patient reports normal at that time. Came to the ER today due to worsening pain especially with US organised by her PCP. In the ER CT A/P showed sigmoid diverticulitis with 3.0cm diverticular abscess, WBC 10.56. She was referred to medicine for admission and ongoing management of sigmoid diverticulitis. Admission Exam Per Admitting Provider Constitutional: WD/WN, vitals as above no acute distress ENMT: external ear and nose normal, oropharynx normal Neck: trachea midline, no thyromegaly Respiratory: normal respiratory effort, lungs clear to auscultation Cardiovascular: RRR, no murmur, no edema Gastrointestinal (Abdomen): Inspection/Auscultation: normal bowel sounds Percussion/Palpation: + abdomen tender (LLQ) and abdomen soft; no guarding and abdomen not rigid Musculoskeletal: no cyanosis or clubbing, extremities motor strength 5/5 Skin: no rashes, warm and dry Neurologic: moves all extremities and awake; not confused Psychiatric: A+Ox3, euthymic affect Genitourinary: no CVA tenderness Principal Diagnosis Diverticulitis w/ abscess. Discharge Exam Constitutional WD/WN, vitals as above Eyes PERRL, conjunctivae normal, anicteric sclerae Respiratory normal respiratory effort, lungs clear to auscultation Cardiovascular RRR, no murmur, no edema Discharge Data Allergies Allergy/AdvReac Type Severity Reaction Status Date / Time No Known Allergies Allergy Unknown Verified 05/22/21 16:04 Consultations 05/22/21 17:11 ED Decision to Admit Stat 05/22/21 18:37 Consult General Surgery Routine Ordered Studies 05/22/21 14:17 CT abd pelvis IV con only Stat IMPRESSION: 1. There is evidence of sigmoid diverticulitis with a 3.0 cm diverticular abscess. See above. 2. No intraperitoneal free air is identified. 3. Left-sided nephrolithiasis. 4. Additional findings as above. Hospital Course (1) Acute diverticulitis: Asya is a 55 year old female w/ PmHx significant for kidney stones admitted for diverticulitis with abscess. Acute Diverticulitis w/ Abscess: -CT Abd/pelv: evidence of sigmoid diverticulitis w/ 3.0cm abscess. -Given 3g Amp/sulbactam in ED. Switched to Pip/tazo 3.375g q8h -Surgery followed through the hospital stay. -Improvement of symptoms throughout stay on antibiotics. -On discharge - -Prescribed 7 days of Ciprofloxacin 500mg BID and Metronidazole 500mg TID. -Follow up with [facility] surgery outpatient, GI outpatient for possible colonoscopy in 2 months. -Educated on low fiber diet while healing from diverticulitis. (2) Lower abdominal pain: (3) Colonic diverticular abscess: Total Time Total Time Spent Total Time Spent (In Minutes): Please see attending attestation. Discharge Plan Discharge Items Patient Disposition: Home - Self-Care Reason For Visit: ACUTE DIVERTICULITIS WITH ABSCESS Discharge Diagnosis: Diverticulitis w/ abscess Condition on Discharge: Fair Activity: Per Instructions section Non-emergency contact: Primary Care Provider and Surgeon Call non-emergency contact if: your symptoms worsen, your pain is worsening and your temperature is above 101 Follow-up/Referrals: Fei Russell MD [Physician] - (Follow-up surgery office in 2-3 weeks) Le Gutierrez MD [Primary Care Provider] - 05/31/21 9:10 am (APPT WITH DR PIETRO MARTINEZ) Diet: Low Fiber Addtl Attending Provider Instructions: A discharge summary will be sent to your primary care physician to ensure continuity of care. You came to the hospital for left abdominal pain that ended up being something called diverticulitis. You were found to have diverticulitis on CT imaging of your abdomen/pelvis, meaning there was an outpouching of in your colon that showed signs of infection. There was also a 3cm abscess that was found on the imaging. Due to these reasons you were hospitalized for treatment with IV antibiotics. You did well on the antibiotics and so we feel comfortable discharging you on oral antibiotics to finish up the rest of your treatment course. You may need a follow up colonoscopy in 2 months, please follow up with your GI doctor for further discussion. Follow-up: * You should be seen by your primary physician within the next week. * You should have a follow up with general surgery at [facility] within the next few weeks. * Please follow up with your transport technician for further discussion about follow up colonoscopy. Medications: Your medication list has been reviewed and reconciled upon discharge to ensure accuracy and continuity of care. An updated list of all your medications is included with your hospital discharge paperwork. Please review this list closely, and make note of any changes. * You will be taking the antibiotic Ciprofloxacin 500mg twice a day for the next 8 days to help clear the infection. * You will be taking the antibiotic Metronidazole 500mg three times a day for the next 8 days to help clear the infection. Take your medications as instructed; do not skip a dose of your medicines. Make sure all of your doctors know every medicine you are taking (including [id number] medicines, vitamins, and supplements). let your primary care provider know before taking any new medicines because some of these may interact with your current medications, or may make your symptoms worse. CONTACT YOUR PRIMARY CARE PROVIDER if you experience any of the following: * Fevers or shaking chills * Shortness of breath not relieved by inhalers, fainting * Sudden abdominal distension not relieved by catheterization. * Difficulty following your treatment plan, or difficulty taking medications CALL 911 OR GO TO THE EMERGENCY DEPARTMENT if you experience any of the following: * Sudden, severe abdominal pain or nausea/vomiting * Severe chest pain, or chest pain that radiates (moves) to your jaw or arm * Sudden, severe shortness of breath or difficulty breathing It was was our pleasure taking care of you here at [facility] . Thank you for allowing us to participate in your care. Pending Studies at Discharge: No Stand-Alone Forms: My [facility], Smoking Cessation Medications and DC Order Prescriptions: New ciprofloxacin HCl [Cipro] 500 mg tablet 500 mg PO BID 8 Days Qty: 16 RF: 0 metronidazole 500 mg tablet 500 mg PO Q8H 8 Days Qty: 24 RF: 0 Continued multivitamin Tablet 1 tab PO DAILY RF: 0 docusate sodium [Stool Softener] 100 mg Capsule 100 mg PO QPM RF: 0 Discharge Orders: Discharge Order (Routine); Ordered 05/25/21 Ordered By: Allen Lanza/Other Patient Handouts: Low-Fiber Diet, Diverticulitis Dc Admission Data Admit Date/Time: 05/22/21 17:02 Attending Provider: Le Gutierrez Admit Provider: Frantz Wright Primary Care Provider: Le Gutierrez Other Providers: Frantz Wright ; Fei Russell Other Interventions: Discharge Summary Assessment (RN) Last Done: 05/25/21 11:48 Supervising Physician Co-Signing Physician Notes Resident Physician Supervision Note: I independently interviewed and examined the patient and verified the yates history and physical, reviewed labs and image studies and agree with resident Dr. Quinones findings and care plan. Resident Activity Tracking Resident Involvement: Resident Care Provided Care Provided: Adult Hospital Medicine
== END 2021-05-25 14:26 | disposition home or self-care (01) | DRG 392 ==
LOC: ED 12:35 → SUATTDRO 17:02 → 3W 17:02

== ENCOUNTER 2021-10-09 20:24 | Inpatient (IN) ==
[2021-10-09 21:34] LABS: Albumin Globulin Ratio 1.4 (0.9-2); Albumin Level 4.3 gm/dl (3.4-5.0); Bilirubin,Total 1.2 mg/dl (0.2-1.0); Calcium 9.4 mg/dl (8.5-10.1); Creatinine Clr Calc Pharmacy 69.5 ml/min; Est GFR (African American) 114.7 ml/min; Potassium 3.8 mmol/L (3.5-5.1); Total Protein 7.3 gm/dl (6.0-8.3)
[2021-10-09 21:36] LABS: Appearance Urine Clear (Clear); Bacteria Urine Automated Negative (Negative); Bilirubin Urine Negative (Negative); Blood Urine Trace (Negative); Cast Urine Automated 0 /lpf (0-5); Color Urine Yellow; Glucose Urine UA Negative (Negative); Ketones Urine 1+ (Negative); Leukocyte Esterase Urine Negative (Negative); Nitrite Urine Negative (Negative); Protein Urine Negative (Negative); RBC Urine Automated 0-4 /hpf (0-4); Specific Gravity Urine 1.017 (1.000-1.030); Urobilinogen Urine Negative (Negative); pH Urine 6.5 (4.5-7.5)
[2021-10-09 21:43] LABS: Basophils # (auto) 0.06 K/uL (0-0.2); Basophils % (auto) 0.4 %; Eosinophils # (auto) 0.02 K/uL (0-0.50); Eosinophils % (auto) 0.1 %; Hematocrit (blood only) 44.4 % (34.1-44.9); Hemoglobin 14.6 g/dl (12.0-16.0); Immature Granulocytes # (auto) 0.06 K/uL (0.00-0.02); Immature Granulocytes % (auto) 0.4 %; Lymphocytes # (auto) 1.29 K/uL (1.2-3.4); Lymphocytes % (auto) 7.7 %; Mean Corpuscular Hemoglobin 30.9 pg (25.0-34.0); Mean Corpuscular Hgb Conc 32.9 g/dL (32.0-36.0); Mean Corpuscular Volume 93.9 fL (80.0-100.0); Mean Platelet Volume 9.7 fL (9.4-12.3); Monocytes # (auto) 0.68 K/uL (0.24-0.82); Neutrophils # (auto) 14.71 K/uL (1.4-6.5); Neutrophils % (auto) 87.4 %; Platelet Count 218 K/uL (130-400); RDW Coefficient of Variation 12.4 % (11.5-14.5); RDW Standard Deviation 43.2 fL (36.4-46.3); Red Blood Count 4.73 M/uL (3.93-5.22); White Blood Count 16.82 K/ul (4.8-10.8)
[2021-10-09] MEDS ORDERED: fentaNYL citrate 100 MCG/2 ML VIAL IV STA (22:30)
[2021-10-09] MEDS ORDERED: ACETAMINOPHEN 1,000 MG/100 ML VIAL IV STA (22:30)
[2021-10-09] MEDS ORDERED: ONDANSETRON INJ 2 MG/ML 2 ML VIAL IV STA (22:30)
[2021-10-09] MEDS ORDERED: SODIUM CHLORIDE 0.9% 1000ML 1,000 ML IV ONE (22:30)
[2021-10-09] MEDS ORDERED: PIPERACILLIN/TAZOBACTAM 4.5 GM/120 ML BAG IV ONE (22:43)
--- NOTE | 2021-10-09 22:43 | Emergency Department Note ---
History of Present Illness General Chief complaint: Abdominal Pain Stated complaint: DIVERTICULITIS, SEVERE ABDOMINAL PAIN Time Seen by Provider: 10/09/21 22:14 History of Present Illness Maximum Pain Intensity: 8 This 55-year-old with a history of diverticulitis presents to the ER complaining of lower abdominal pain and fever who had outpatient testing done at [facility] Location: Abdomen Quality: Painful Severity: Moderate Duration: Past day Timing: Started the other day Context: Patient was concerned and came in Modifying factors: better with rest; worse with activity Patient states she had an abscess before. Patient denies chest pain, dyspnea, vomiting, diarrhea, urinary symptoms. Home Medications Medication Instructions Recorded Confirmed Type docusate sodium 100 mg capsule 100 mg PO QPM 05/22/21 05/22/21 History (Stool Softener) multivitamin 1 tab PO DAILY 05/22/21 05/22/21 History Allergies Allergy/AdvReac Type Severity Reaction Status Date / Time No Known Allergies Allergy Unknown Verified 05/22/21 16:04 Past Med/Surg History Medical History (Updated 10/10/21 @ 03:46 by Josephine Gambao DO) Kidney stones Lower abdominal pain Renal colic Right ureteral stone Surgical History History of lithotripsy Social History Smoking Status: Never smoker Second Hand Exposure: No; Hx Alcohol Use: Yes Alcohol type: wine Hx Substance Use: No Preferred Language: Khmer Communication Ability: Effective Litigation Counsel Required: No Beliefs That Will Affect Care: None Current Living Situation: Spouse Other Information That Helps Us Care for You: No Feels Safe at Home: Yes Safety Concerns: Feels Safe At This Time Assistive Devices: Glasses Review of Systems A total of 10 systems reviewed and were otherwise negative Physical Exam Vital Signs Vital Signs - 24 hr 10/09/21 20:47 10/09/21 22:27 10/09/21 22:27 Temperature 37.8 C H Temperature Source Temporal Artery Scan Pulse Rate 96 H 80 Pulse Rate [Right Finger] 80 Pulse Rhythm Regular Respiratory Rate 18 20 Respiratory Effort / Characteristics Non-Labored Respiratory Depth Normal Blood Pressure 112/70 Blood Pressure [Right Arm] 117/77 Blood Pressure Mean 84 Blood Pressure Mean [Right Arm] 90 Pulse Oximetry 97 97 97 Oxygen Delivery Method Room Air Room Air Sepsis Recent Fever Within 48 Hours No Sepsis New/Unexplained Change in Mental Status No Sepsis Action Taken by Nursing No Action Required 10/09/21 23:16 10/10/21 00:30 10/10/21 01:03 Temperature 36.8 C Temperature Source Oral Pulse Rate Pulse Rate [Right Finger] 77 81 69 Pulse Rhythm Respiratory Rate 18 18 18 Respiratory Effort / Characteristics Non-Labored Respiratory Depth Normal Blood Pressure Blood Pressure [Right Arm] 113/69 116/71 99/63 L Blood Pressure Mean Blood Pressure Mean [Right Arm] 83 86 75 Pulse Oximetry 97 98 95 Oxygen Delivery Method Room Air Room Air Room Air Sepsis Recent Fever Within 48 Hours Sepsis New/Unexplained Change in Mental Status Sepsis Action Taken by Nursing 10/10/21 01:42 10/10/21 02:30 10/10/21 03:00 Temperature Temperature Source Pulse Rate Pulse Rate [Right Finger] 71 69 64 Pulse Rhythm Respiratory Rate 18 18 18 Respiratory Effort / Characteristics Respiratory Depth Blood Pressure Blood Pressure [Right Arm] 117/64 110/66 111/64 Blood Pressure Mean Blood Pressure Mean [Right Arm] 81 80 79 Pulse Oximetry 95 94 96 Oxygen Delivery Method Room Air Room Air Room Air Sepsis Recent Fever Within 48 Hours Sepsis New/Unexplained Change in Mental Status Sepsis Action Taken by Nursing VITALS: Vitals are noted on the nurse's note and reviewed by myself. Vital signs low-grade fever. GENERAL: Pleasant female who appears in pain, in no acute distress, nondiaphoretic, well-developed well-nourished. SKIN: The skin was without rashes, erythema, edema, or bruising. There is no t enting of the skin. Capillary reflex less than 2 seconds. HEAD: Normocephalic atraumatic. EARS: External auditory canals clear, EYES: Pupils equal round and reactive to light and accommodation. Conjunctivae without injection, sclerae without icterus. Extraocular movements intact. NOSE: Patent, turbinates without inflammation or discharge MOUTH: Mucous membranes moist. Pharynx without erythema or exudate. Uvula midline. Airway patent. Tongue does not deviate. NECK: Supple without nuchal rigidity. No lymphadenopathy. No thyromegaly. Cervical spine is nontender. No JVD. HEART: Regular rate and rhythm LUNGS: Clear to auscultation bilaterally without wheezes, rales or rhonchi. No retractions or accessory muscle use. ABDOMEN: Positive bowel sounds x 4. Normal tympanic percussion. Soft, tender to palpation lower abdomen, without masses or organomegaly. Haque sign neg ative. No guarding or rebound tenderness. No CVA tenderness MUSCULOSKELETAL: No muscle atrophy, erythema, or edema noted. NEURO: Patient was alert and oriented to person place and time. Normal sen sation to light and sharp touch. No focal neurological deficits. Course Administered Medications Discontinued Medications Fentanyl Citrate (Fentanyl Citrate 100 Mcg/2 Ml Vial) 50 mcg IV NOW STA Stop: 10/09/21 22:31 Last Admin: 10/09/21 22:48 Dose: 50 mcg Documented By: PAULINE Fentanyl Citrate (Fentanyl Citrate 100 Mcg/2 Ml Vial) 50 mcg IV NOW STA Stop: 10/10/21 02:43 Last Admin: 10/10/21 02:48 Dose: 50 mcg Documented By: MACKENZIE Sodium Chloride (Nss 1000ml) 1,000 mls @ 999 mls/hr IV .Q1H1M ONE Stop: 10/09/21 23:30 Last Infusion: 10/09/21 23:52 Dose: 0 mls/hr Documented By: Admin: 10/09/21 22:48 Dose: 999 mls/hr Documented By: PAULINE Acetaminophen (Ofirmev) 1,000 mg in 100 mls @ 400 mls/hr IV NOW STA Stop: 10/09/21 22:44 Last Infusion: 10/09/21 23:01 Dose: 0 mls/hr Documented By: Admin: 10/09/21 22:48 Dose: 400 mls/hr Documented By: PAULINE Piperacillin Sod/Tazobactam Sod (Zosyn) 4.5 gm in 120 mls @ 240 mls/hr IV NOW ONE Stop: 10/09/21 23:12 Last Infusion: 10/09/21 23:30 Dose: 0 mls/hr Documented By: Admin: 10/09/21 23:00 Dose: 240 mls/hr Documented By: PAULINE Piperacillin Sod/Tazobactam Sod (Zosyn) 4.5 gm in 120 mls @ 240 mls/hr IV NOW ONE Stop: 10/10/21 03:17 Last Admin: 10/10/21 03:08 Dose: Not Given Documented By: MACKENZIE Ioversol (Optiray 300 500ml) 100 ml IV ONCE ONE Stop: 10/10/21 00:37 Last Admin: 10/10/21 00:36 Dose: 93 ml Documented By: PUJA Ondansetron HCl (Ondansetron Inj 2 Mg/Ml 2 Ml Vial) 4 mg IV NOW STA Stop: 10/09/21 22:31 Last Admin: 10/09/21 22:48 Dose: 4 mg Documented By: PAULINE Ondansetron HCl (Ondansetron Home Pack 4mg Od Tab) 1 each PO NOW ONE Stop: 10/10/21 02:43 Last Admin: 10/10/21 03:02 Dose: Not Given Documented By: BÁRBARA Oxycodone HCl (Oxycodone Ir Home Pack) 1 each PO UD ONE Stop: 10/10/21 02:43 Last Admin: 10/10/21 03:02 Dose: Not Given Documented By: BÁRBARA Medical Decision Making Medical Records Attestation: I reviewed the patient's medical records. Home Medications Current Medication List: was personally reviewed by me Laboratory Data Attestation: I reviewed the patient's lab results. Result diagrams: 10/09/21 21:00 10/09/21 21:00 Lab Results 10/09/21 10/09/21 10/09/21 Range/Units 21:00 21:00 21:00 WBC 16.82 H (4.8-10.8) K/ul RBC 4.73 (3.93-5.22) M/uL Hgb 14.6 (12.0-16.0) g/dl Hct 44.4 (34.1-44.9) % MCV 93.9 (80.0-100.0) fL MCH 30.9 (25.0-34.0) pg MCHC 32.9 (32.0-36.0) g/dL RDW Std Deviation 43.2 (36.4-46.3) fL RDW Coeff of Gris 12.4 (11.5-14.5) % Plt Count 218 (130-400) K/uL MPV 9.7 (9.4-12.3) fL Immature Gran % (Auto) 0.4 % Neut % (Auto) 87.4 % Lymph % (Auto) 7.7 % [place] % (Auto) 4.0 % Eos % (Auto) 0.1 % Baso % (Auto) 0.4 % Neut # (Auto) 14.71 H (1.4-6.5) K/uL Lymph # (Auto) 1.29 (1.2-3.4) K/uL [place] # (Auto) 0.68 (0.24-0.82) K/uL Eos # (Auto) 0.02 (0-0.50) K/uL Baso # (Auto) 0.06 (0-0.2) K/uL Immature Gran # (Auto) 0.06 H (0.00-0.02) K/uL Sodium 135 L (136-145) mmol/L Potassium 3.8 (3.5-5.1) mmol/L Chloride 101 (98-107) mmol/L Carbon Dioxide 27 (21-32) mmol/L Anion Gap 7 (3-11) BUN 6 (6-23) mg/dl Creatinine 0.67 (0.6-1.2) mg/dl Est Cr Clr Drug Dosing 69.5 ml/min Est GFR ( Amer) 114.7 ml/min Est GFR (Non-Af Amer) 99.0 ml/min BUN/Creatinine Ratio 9.0 L (10-20) Glucose 103 H (70-99(Fasting)) mg/dl Calcium 9.4 (8.5-10.1) mg/dl Total Bilirubin 1.2 H (0.2-1.0) mg/dl AST 13 (13-39) U/L ALT 10 (7-52) U/L Alkaline Phosphatase 74 (34-104) U/L Total Protein 7.3 (6.0-8.3) gm/dl Albumin 4.3 (3.4-5.0) gm/dl Globulin 3.0 (2.5-4.0) gm/dl Albumin/Globulin Ratio 1.4 (0.9-2) Lipase 29 (11-82) U/L Urine Color Yellow Urine Appearance Clear (Clear) Urine pH 6.5 (4.5-7.5) Ur Specific [place] 1.017 (1.000-1.030) Urine Protein Negative (Negative) Urine Glucose (UA) Negative (Negative) Urine Ketones 1+ H (Negative) Urine Blood Trace H (Negative) Urine Nitrite Negative (Negative) Urine Bilirubin Negative (Negative) Urine Urobilinogen Negative (Negative) Ur Leukocyte Esterase Negative (Negative) Urine WBC (Auto) 1-5 (0-5) /hpf Urine RBC (Auto) 0-4 (0-4) /hpf U Hyaline Cast (Auto) 0 (0-5) /lpf U Epithel Cells (Auto) 10-20 H (0-5) /lpf Urine Bacteria (Auto) Negative (Negative) SARS-CoV-2, RNA, NAAT (NEGATIVE) 10/10/21 Range/Units 02:55 WBC (4.8-10.8) K/ul RBC (3.93-5.22) M/uL Hgb (12.0-16.0) g/dl Hct (34.1-44.9) % MCV (80.0-100.0) fL MCH (25.0-34.0) pg MCHC (32.0-36.0) g/dL RDW Std Deviation (36.4-46.3) fL RDW Coeff of Gris (11.5-14.5) % Plt Count (130-400) K/uL MPV (9.4-12.3) fL Immature Gran % (Auto) % Neut % (Auto) % Lymph % (Auto) % [place] % (Auto) % Eos % (Auto) % Baso % (Auto) % Neut # (Auto) (1.4-6.5) K/uL Lymph # (Auto) (1.2-3.4) K/uL [place] # (Auto) (0.24-0.82) K/uL Eos # (Auto) (0-0.50) K/uL Baso # (Auto) (0-0.2) K/uL Immature Gran # (Auto) (0.00-0.02) K/uL Sodium (136-145) mmol/L Potassium (3.5-5.1) mmol/L Chloride (98-107) mmol/L Carbon Dioxide (21-32) mmol/L Anion Gap (3-11) BUN (6-23) mg/dl Creatinine (0.6-1.2) mg/dl Est Cr Clr Drug Dosing ml/min Est GFR ( Amer) ml/min Est GFR (Non-Af Amer) ml/min BUN/Creatinine Ratio (10-20) Glucose (70-99(Fasting)) mg/dl Calcium (8.5-10.1) mg/dl Total Bilirubin (0.2-1.0) mg/dl AST (13-39) U/L ALT (7-52) U/L Alkaline Phosphatase (34-104) U/L Total Protein (6.0-8.3) gm/dl Albumin (3.4-5.0) gm/dl Globulin (2.5-4.0) gm/dl Albumin/Globulin Ratio (0.9-2) Lipase (11-82) U/L Urine Color Urine Appearance (Clear) Urine pH (4.5-7.5) Ur Specific [place] (1.000-1.030) Urine Protein (Negative) Urine Glucose (UA) (Negative) Urine Ketones (Negative) Urine Blood (Negative) Urine Nitrite (Negative) Urine Bilirubin (Negative) Urine Urobilinogen (Negative) Ur Leukocyte Esterase (Negative) Urine WBC (Auto) (0-5) /hpf Urine RBC (Auto) (0-4) /hpf U Hyaline Cast (Auto) (0-5) /lpf U Epithel Cells (Auto) (0-5) /lpf Urine Bacteria (Auto) (Negative) SARS-CoV-2, RNA, NAAT NEGATIVE (NEGATIVE) Imaging Data Attestation: I personally reviewed and interpreted this imaging study as follows: MDM Narrative Prior records/ancillary studies reviewed. Triage Nursing notes reviewed. Additional history obtained from family. The patient's history was concerning for abdominal pain. Differential diagnosis: Etiologies such as appendicitis, diverticulitis, PUD, biliary pathology, UTI, pancreatitis, obstruction, mesenteric ischemia, aortic pathology, infections, inflammatory bowel disease, renal colic, as well as others were entertained. Physical examination findings: As above. ER treatment provided: An order was placed for continuous cardiac monitoring. The monitor shows a rate of 60-100 with a sinus rhythm. IV fluids, Tylenol, fentanyl, Zofran, Zosyn On reassessment the patient felt better. Diagnostics interpreted by me: The labs revealed leukocytosis Imaging studies: Preliminary Findings Only See Final Report For Complete Findings CT ABDOMEN & PELVIS With Contrast: Nonobstructing 2 mm left renal calculus. The remaining solid organs are within normal limits. No bowel obstruction. Diverticulosis. Normal appendix. No fracture. Radiologist: Daysi Cade MD Study ready at 00:38 and initial results transmitted at 01:02 I spoke with the radiologist at [facility] and states there is a diverticulitis with possible microperforation.Apparently the original radiologist that had read that the scan had left and I spoke to a different one. Consultation: A consultation was placed with the Hospitalist. The case was discussed and diagnostics were reviewed. The patient was evaluated in the ER for further treatment. Exam and history seem consistent with diverticulitis with microperforation. I sp luis manuel to radiology at [facility] and states there is diverticulitis with a microperforation.This was a different 1 that read the original reading.Patient's exam seems most consistent with perforated diverticulitis versus a kidney stone.Medicine is consulted. She will be evaluated for admission. She was given broad-spectrum antibiotics. By the evaluation outlined above emergent etiologies such as appendicitis, PUD, biliary pathology, UTI, pancreatitis, obstruction, mesenteric ischemia, aortic pathology, inflammatory bowel disease, as well as others were deemed relatively unlikely. The pt informed about the findings as listed above. All questions were answered and pleased with the treatment. The chart was completed utilizing [employer] Speech voice recognition software. Grammatical errors, random word insertions, pronoun errors, and incomplete sentences are an occassional consequence of this system due to software limitations, ambient noise, and hardware issues. Any formal questions or concerns about the content, text, or information contained within the body of this dictation should be directly addressed to the physician photography assistant for clarification. Impression & Plan Diverticulitis Discharge Plan Visit Data Chief Complaint: Abdominal Pain Stated Complaint: DIVERTICULITIS, SEVERE ABDOMINAL PAIN ED Provider: Eliseo Tavera ED Midlevel Provider: Danielle Casillas Discharge Problem: Diverticulitis Patient Disposition: Admitted As Inpatient Condition: Good Forms Stand Alone Forms: My [employer] Prescriptions Prescriptions: No Action multivitamin Tablet 1 tab PO DAILY docusate sodium [Stool Softener] 100 mg Capsule 100 mg PO QPM Referrals Referrals: Le Gutierrez MD [Primary Care Provider] -
[2021-10-10] MEDS ORDERED: OPTIRAY 300 500mL IV ONE (00:36)
[2021-10-10] MEDS ORDERED: fentaNYL citrate 100 MCG/2 ML VIAL IV STA (02:42)
[2021-10-10] MEDS ORDERED: ONDANSETRON HOME PACK 4MG OD TAB PO ONE (02:42)
[2021-10-10] MEDS ORDERED: oxyCODONE IR HOME PACK PO ONE (02:42)
[2021-10-10] MEDS ORDERED: PIPERACILLIN/TAZOBACTAM 4.5 GM/120 ML BAG IV ONE (02:48)
--- NOTE | 2021-10-10 03:51 | History & Physical Report ---
Date of Service October 10, 2021 Assessment & Plan (1) Diverticulitis: Plan: 55yo female with history of acute sigmoid diverticulitis with abscess in May 2021 returning with lower abdominal and RLQ pain. Found to have acute diverticulitis with suspected microperforation. Patient is afebrile presently - did have elevated temperature of 37.8 upon arrival, HD stable and nontoxic in appearance. Pain is fairly well controlled. Her abdomen is tender but without rebound. Marked leukocytosis with WBC=16.82 with neutrophil predominance and bands. -Admit to medical -Keep NPO -Continue Zosyn -Morphine PRN pain -Zofran PRN nausea -LR at 80mL/hr -General Surgery consultation appreciated (2) Kidney stones: Plan: Noted on prior imaging as well. No dysuria, no UTI symptoms -Monitor F/E/N- LR at 80mL/hr, monitor electrolytes and replete as needed, NPO Ppx - Low risk for DVT Code - Full Dispo - Admit to medical History of Present Illness Chief Complaint: abdominal pain Primary Care Provider: Le Gutierrez MD Asya Villar is a 55yo female with history of acute sigmoid diverticulitis with 3cm abscess in May 2021 for which she was hospitalized. She was treated conservatively, given Zosyn and DCd home on Ciprofloxacin and Flagyl. Patient presents today with 2 days of progressive suprapubic and lower abdominal pain with associated nausea, bloating and subjective fever. She feels similarly to when she had acute diverticulitis in May. She was seen by [facility] yesterday with these complaints and was ordered a CT of the abdomen, blood work and instructed to continue a clear liquid diet. She was to have her colonoscopy performed on 10/10/21 but that has been postponed x [address] of the abdomen performed in the ER suggestive of acute diverticulitis with microperforation. Findings discussed with ER provider at time of read. Non-obstructing left renal calculi noted which was present on CT in May as well. Allergies Allergy/AdvReac Type Severity Reaction Status Date / Time No Known Allergies Allergy Unknown Verified 05/22/21 16:04 Home Medications Medication Instructions Recorded Confirmed Type docusate sodium 100 mg capsule 100 mg PO QPM 05/22/21 05/22/21 History (Stool Softener) multivitamin 1 tab PO DAILY 05/22/21 05/22/21 History Past Med/Surg History Medical History (Updated 10/10/21 @ 03:46 by Josephine Gamboa DO) Kidney stones Lower abdominal pain Renal colic Right ureteral stone Surgical History History of lithotripsy Social History Smoking Status: Never smoker Second Hand Exposure: No; Hx Alcohol Use: Yes Alcohol type: wine Hx Substance Use: No Preferred Language: Amharic Communication Ability: Effective Inside Sales Consultant Required: No Beliefs That Will Affect Care: None Current Living Situation: Spouse Feels Safe at Home: Yes Assistive Devices: None Review of Systems Review of Systems: All systems reviewed & are unremarkable except as noted in HPI & below Physical Exam Physical Exam: General: patient resting comfortably, NAD, non-toxic in appearance, AA&O x 4 Skin: warm, dry, intact, no rashes or lesions HEENT: NC/AT, PERRL, EOMI, anicteric sclera, conjunctiva without injection, external ear normal to inspection and nontender, nares patent, moist mucus membranes, dentition intact, no oropharyngeal lesions, neck supple, trachea midline, no LAD, no thyromegaly, no JVD Heart: +S1/S2, regular, no m/r/g Lungs: equal air entry bilaterally, no rales/rhonchi/wheezes Abd: +BS, soft, ND, tender in lower abdomen and RLQ with voluntary guarding, no masses/organomegaly/ascites Ext: warm, 2+ pulses in UE/LE bilaterally, no clubbing/cyanosis or edema Neuro: nonfocal, patient AA&O x 4, speech intact, no facial droop, moving all extremities on command with equal strength 5/5 Results & Data Results & Data ([facility]) Vital Signs (Past 12 Hours) Vital Signs Temp Pulse Pulse Resp BP BP Pulse Ox 10/10/21 03:00 64 18 111/64 96 10/10/21 02:30 69 18 110/66 94 10/10/21 01:42 71 18 117/64 95 10/10/21 01:03 69 18 99/63 L 95 10/10/21 00:30 81 18 116/71 98 10/09/21 23:16 36.8 C 77 18 113/69 97 10/09/21 22:27 80 97 10/09/21 22:27 80 20 117/77 97 10/09/21 20:47 37.8 C H 96 H 18 112/70 97 O2 Del Method 10/10/21 03:00 Room Air 10/10/21 02:30 Room Air 10/10/21 01:42 Room Air 10/10/21 01:03 Room Air 10/10/21 00:30 Room Air 10/09/21 23:16 Room Air 10/09/21 22:27 Room Air 10/09/21 22:27 Room Air 10/09/21 20:47 Laboratory Results Laboratory Results WBC 16.82 K/ul (4.8-10.8) H 10/09/21 21:00 RBC 4.73 M/uL (3.93-5.22) 10/09/21 21:00 Hgb 14.6 g/dl (12.0-16.0) 10/09/21 21:00 Hct 44.4 % (34.1-44.9) 10/09/21 21:00 MCV 93.9 fL (80.0-100.0) 10/09/21 21:00 MCH 30.9 pg (25.0-34.0) 10/09/21 21:00 MCHC 32.9 g/dL (32.0-36.0) 10/09/21 21:00 RDW Std Deviation 43.2 fL (36.4-46.3) 10/09/21 21:00 RDW Coeff of Gris 12.4 % (11.5-14.5) 10/09/21 21:00 Plt Count 218 K/uL (130-400) 10/09/21 21:00 MPV 9.7 fL (9.4-12.3) 10/09/21 21:00 Immature Gran % (Auto) 0.4 % 10/09/21 21:00 Neut % (Auto) 87.4 % 10/09/21 21:00 Lymph % (Auto) 7.7 % 10/09/21 21:00 [place] % (Auto) 4.0 % 10/09/21 21:00 Eos % (Auto) 0.1 % 10/09/21 21:00 Baso % (Auto) 0.4 % 10/09/21 21:00 Neut # (Auto) 14.71 K/uL (1.4-6.5) H 10/09/21 21:00 Lymph # (Auto) 1.29 K/uL (1.2-3.4) 10/09/21 21:00 [place] # (Auto) 0.68 K/uL (0.24-0.82) 10/09/21 21:00 Eos # (Auto) 0.02 K/uL (0-0.50) 10/09/21 21:00 Baso # (Auto) 0.06 K/uL (0-0.2) 10/09/21 21:00 Immature Gran # (Auto) 0.06 K/uL (0.00-0.02) H 10/09/21 21:00 Sodium 135 mmol/L (136-145) L 10/09/21 21:00 Potassium 3.8 mmol/L (3.5-5.1) 10/09/21 21:00 Chloride 101 mmol/L (98-107) 10/09/21 21:00 Carbon Dioxide 27 mmol/L (21-32) 10/09/21 21:00 Anion Gap 7 (3-11) 10/09/21 21:00 BUN 6 mg/dl (6-23) 10/09/21 21:00 Creatinine 0.67 mg/dl (0.6-1.2) 10/09/21 21:00 Est Cr Clr Drug Dosing 69.5 ml/min 10/09/21 21:00 Est GFR ( Amer) 114.7 ml/min 10/09/21 21:00 Est GFR (Non-Af Amer) 99.0 ml/min 10/09/21 21:00 BUN/Creatinine Ratio 9.0 (10-20) L 10/09/21 21:00 Glucose 103 mg/dl (70-99(Fasting)) H 10/09/21 21:00 Calcium 9.4 mg/dl (8.5-10.1) 10/09/21 21:00 Total Bilirubin 1.2 mg/dl (0.2-1.0) H 10/09/21 21:00 AST 13 U/L (13-39) 10/09/21 21:00 ALT 10 U/L (7-52) 10/09/21 21:00 Alkaline Phosphatase 74 U/L (34-104) 10/09/21 21:00 Total Protein 7.3 gm/dl (6.0-8.3) 10/09/21 21:00 Albumin 4.3 gm/dl (3.4-5.0) 10/09/21 21:00 Globulin 3.0 gm/dl (2.5-4.0) 10/09/21 21:00 Albumin/Globulin Ratio 1.4 (0.9-2) 10/09/21 21:00 Lipase 29 U/L (11-82) 10/09/21 21:00 Urine Color Yellow 10/09/21 21:00 Urine Appearance Clear (Clear) 10/09/21 21:00 Urine pH 6.5 (4.5-7.5) 10/09/21 21:00 Ur Specific Rush 1.017 (1.000-1.030) 10/09/21 21:00 Urine Protein Negative (Negative) 10/09/21 21:00 Urine Glucose (UA) Negative (Negative) 10/09/21 21:00 Urine Ketones 1+ (Negative) H 10/09/21 21:00 Urine Blood Trace (Negative) H 10/09/21 21:00 Urine Nitrite Negative (Negative) 10/09/21 21:00 Urine Bilirubin Negative (Negative) 10/09/21 21:00 Urine Urobilinogen Negative (Negative) 10/09/21 21:00 Ur Leukocyte Esterase Negative (Negative) 10/09/21 21:00 Urine WBC (Auto) 1-5 /hpf (0-5) 10/09/21 21:00 Urine RBC (Auto) 0-4 /hpf (0-4) 10/09/21 21:00 U Hyaline Cast (Auto) 0 /lpf (0-5) 10/09/21 21:00 U Epithel Cells (Auto) 10-20 /lpf (0-5) H 10/09/21 21:00 Urine Bacteria (Auto) Negative (Negative) 10/09/21 21:00 SARS-CoV-2, RNA, NAAT NEGATIVE (NEGATIVE) 10/10/21 02:55 PG Care Time/CCT Total # of Minutes Spent Total Time Spent with Patient: Total time spent is greater than 50% in coordination of care (as documented) at patient's floor/unit and/or counseling patient: Coding Level of Care Code 43709 Initial Inpt Care Lvl 2 Diagnoses Diverticulitis K57.92 Kidney stones N20.0
[2021-10-10] MEDS ORDERED: LACTATED RINGER'S 1,000 ML IV SCH (04:27)
[2021-10-10] MEDS ORDERED: ONDANSETRON INJ 2 MG/ML 2 ML VIAL IV PRN (04:27)
[2021-10-10] MEDS ORDERED: PIPERACILLIN/TAZOBACTAM 3.375 GM in DEXTROSE 5% 100 ML IV SCH ×3 (06:00→13:20)
[2021-10-10] MEDS: SODIUM CHLORIDE 0.9% 1000ML 1,000 ML IV SCH ×2 (06:13→18:30)
[2021-10-10] MEDS: MoRPHine SULFATE 2 MG/ML CARP IV PRN ×4 (06:18→17:58)
--- NOTE | 2021-10-10 07:46 | CT Scan Report ---
CT SCAN OF THE ABDOMEN AND PELVIS WITH IV CONTRAST CLINICAL HISTORY: Lower abdominal pain. Fever. COMPARISON STUDY: Abdominal CT dated 05/26/2021. TECHNIQUE: Following the IV administration of 93 cc of Optiray 300, CT scan of the abdomen and pelvi s is performed from the lung bases to the proximal femora. Images are reviewed in the axial, sagittal , and coronal planes. IV contrast was administered without complication. A dose lowering technique wa s utilized adhering to the principles of ALARA. The examination is degraded by motion artifact. CT DOSE: 251.97 mGy.cm FINDINGS: Lung bases: The heart is normal in size and without pericardial effusion. A calcified granuloma is no shraddha at the left lung base. The lung bases are otherwise clear noting dependent atelectasis. Liver: The contrast-enhanced liver is normal in size, contour, and attenuation. There is no intrahepa tic biliary ductal dilatation. The hepatic veins and portal veins are patent. Gallbladder: Unremarkable. Spleen: Normal in size and attenuation. Pancreas: Unremarkable. Adrenal glands: Unremarkable. Kidneys: The contrast enhanced kidneys are normal in size and without hydronephrosis. The kidneys enh ance symmetrically. There is a 4 mm nonobstructing left renal calculus. Abdominal vasculature: The abdominal aorta is normal in course and caliber. Bowel: There is rectosigmoid fecal retention. No bowel obstruction is seen. There is streak artifact from retained enteric contrast in the colon. There is wall thickening with mild surrounding inflammat ion and fluid involving the sigmoid suggesting acute diverticulitis. There is moderate sigmoid divert iculosis. No organized fluid collections identified to indicate abscess. There is tethering of the re ctosigmoid with foci of extraluminal gas. Developing fistula formation is not excluded. The appendix is well-visualized and normal. Peritoneum: There are numerous foci of intraperitoneal free air seen below the diaphragm. There is a fat-containing umbilical hernia. Lymphadenopathy: None. Pelvic viscera: The bladder is distended and contains excreted IV contrast. The uterus and adnexa are normal as visualized. Skeletal structures: No lytic or blastic lesions are seen. IMPRESSION: 1. Intraperitoneal free air indicates visceral perforation. 2. This is likely related to sigmoid diverticulitis, which may be subacute or chronic. 3. No organized fluid collection is seen to indicate abscess. 4. The rectosigmoid appears mildly tethered with foci of linear stranding and extraluminal gas. Devel oping fistulas are not excluded in the deep pelvis. 5. There is no bowel obstruction. 6. Left-sided nephrolithiasis. 7. Distended bladder. 8. Additional findings as above. ACT 112: Negative or not required by law. Electronically signed by: Niko Guevara M.D. 10/10/2021 7:43 AM
--- NOTE | 2021-10-10 08:03 | Hospitalist Progress Note ---
Date of Service October 10, 2021 Assessment & Plan (1) Diverticulitis: Plan: Pt is a 55 yo female with history of acute sigmoid diverticulitis with abscess in May 2021 and kidney stones presenting with lower abdominal pain. CT abdomen shows acute diverticulitis with microperforations. Diverticulitis -Keep NPO for rest of today, consider advancement of diet to clear liquid tomorrow pending clinical status -Continue Zosyn at 3.375 g q6hr x4-7 days total (day 1 today) -Morphine q3hr PRN for pain -Zofran q6hr PRN for nausea -Continue LR at 80mL/hr -General surgery consult placed Kidney stone - stable from imaging in May 2021 - No urinary symptoms on this admission or within the past months - Monitor for development of symptoms FEN: LR at 80mL/hr, NPO DVT ppx: low risk Code: Full Dispo: med/surg (2) Kidney stones: Admission and Anticipated Discharge Date Admission Date: October 10, 2021 Supervising Physician Co-Signing Physician Notes Resident Physician Supervision Note: I independently interviewed and examined the patient and verified the yates history and physical, reviewed labs and image studies and agree with resident Ahsan Hodges findings and care plan. Subjective Pt is a 55 yo female with PMH of acute diverticulitis (05/2021) and renal calculi presenting with progressive abdominal pain for 2 days. Pt has a hx of sigmoid diverticulitis with 3 cm abscess in May 2021 treated with zosyn inpatient and cipro and metronidazole outpatient. In ER: Found to have acute diverticulitis with suspected microperforation on CT. Patient had elevated temperature of 37.8 upon arrival. WBC=16.82. 10/10/2021: Pt still with abdominal pain 2-3/10 mostly in band across her lower abdomen. She describes that the pain has evolved from sharp to more dull today. She does still feel bloated but not as much as yesterday. She voices frustrations concerning following a semi-strict low fiber diet and trying to avoid sweets after her diverticulitis episode in May. She denies fevers, chills, diarrhea, hematochezia, urinary frequency, or pain with urination. Physical Exam Constitutional: NAD, afebrile, vitals WNL Respiratory: CTA, no increased work of breathing. No rhonchi, rales, or wheezing. Cardiovascular: RRR. No murmur noted. Normal S1 and S2. Gastrointestinal (Abdomen): Tender upon palpation with no guarding. Most tender at suprapubic location. No masses noted. Results & Data Results & Data ([facility]) Vital Signs (Past 12 Hours) Vital Signs Temp Pulse Pulse Resp BP BP Pulse Ox 10/10/21 04:42 36.7 C 66 18 107/54 L 98 10/10/21 03:00 64 18 111/64 96 10/10/21 02:30 69 18 110/66 94 10/10/21 01:42 71 18 117/64 95 10/10/21 01:03 69 18 99/63 L 95 10/10/21 00:30 81 18 116/71 98 10/09/21 23:16 36.8 C 77 18 113/69 97 10/09/21 22:27 80 97 10/09/21 22:27 80 20 117/77 97 10/09/21 20:47 37.8 C H 96 H 18 112/70 97 O2 Del Method 10/10/21 04:42 Room Air 10/10/21 03:00 Room Air 10/10/21 02:30 Room Air 10/10/21 01:42 Room Air 10/10/21 01:03 Room Air 10/10/21 00:30 Room Air 10/09/21 23:16 Room Air 10/09/21 22:27 Room Air 10/09/21 22:27 Room Air 10/09/21 20:47 Resident Activity Tracking Resident Involvement: Resident Care Provided Care Provided: Adult Hospital Medicine
--- NOTE | 2021-10-10 09:10 | Surgery Consultation ---
Date of Consultation October 10, 2021 Assessment & Plan (1) Diverticulitis: Plan 55-year-old female with second episode of complicated diverticulitis within the last 6 months. Her last episode of complicated diverticulitis was with a 3 cm abscess however this episode is showing microperforation with no associated abscess and foci of intraperitoneal free air. Her abdominal exam is showing no peritonitis and soft however tender in the bilateral lower abdomen. She does have leukocytosis of 16,000 however she is currently afebrile. Pain is improved with pain medication. Plan: Discussed with patient her imaging findings showing another episode of complicated diverticulitis with a microperforation. Discussed that her exam is currently stable and there is no indication for emergent surgery at this time. We recommend conservative management with bowel rest, IV antibiotics, IV fluids, pain management as needed. Discussed with patient that since this is her second episode of complicated diverticulitis within a 6-month period may need to consider discussion of surgical management of her diverticulitis as an outpatient when she gets through this acute phase. Continue current medical management Will continue to follow Dr. Russell has seen and examined patient and discussed above with patient please see addendum for further recommendations/plan. Supervising Physician Co-Signing Physician Notes I have seen and examined the patient personally and agree with the above assessment and plan. Of note, this is her second complicated diverticulitis episode in 4 months. We will treat her conservatively with antibiotics. We will need to discuss definitive management once this episode is resolved. We will continue to follow her while she is in the hospital. History of Present Illness Reason for Consultation: Diverticulitis with microperforation Requesting Physician: Josephine Gamboa DO Attending Physician: Le Gutierrez MD History of Present Illness Asya is a pleasant 55-year-old female who presented to the emergency room last evening with complaint of lower abdominal pain that started on Saturday. Asya has a history of complicated diverticulitis of the sigmoid colon with a 3 cm abscess in May of this year in which she was admitted here at [facility] and underwent conservative management with IV antibiotics. She states she has been doing well since her last admission and was actually scheduled for her colonoscopy today. She had a telemedicine visit with Emmanuel Garsia with [facility] yesterday who recommended getting blood work and a CT scan of the abdomen pelvis which she had obtained at [facility] yesterday. She then presented to the emergency room due to her pain. She states the pain was similar to her episode in May however slightly worse in severity. Associated nausea but no vomiting. No fevers or chills. Denies of any recent constipation. Denies of any blood in the stools or black tarry looking stools. States she had some yellow mucus with her stools recently. No difficulty urinating and blood in the urine. Denies of any passing gas with her urine stream or dark brown-colored urine or burning on urination. ER work-up included labs which showed a leukocytosis of 16,000. CT scan of the abdomen pelvis was repeated with IV contrast only showing wall thickening with mild surrounding inflammation and fluid involving the sigmoid suggesting acute productive diverticulitis no organized fluid collections identified to indicate an abscess. There is tethering of the rectosigmoid with foci of extraluminal gas in which a developing fistula is not excluded. She also had foci of intraperitoneal free air underneath the diaphragm indicating a microperforation. Allergies Allergy/AdvReac Type Severity Reaction Status Date / Time No Known Allergies Allergy Unknown Verified 05/22/21 16:04 Home Medications Medication Instructions Recorded Confirmed Type docusate sodium 100 mg capsule 100 mg PO QPM 05/22/21 10/10/21 History (Stool Softener) multivitamin 1 tab PO DAILY 05/22/21 10/10/21 History Patient History Medical History (Updated 10/10/21 @ 03:46 by Josephine Gamboa DO) Kidney stones Lower abdominal pain Renal colic Right ureteral stone Surgical History History of lithotripsy Social History Smoking Status: Never smoker Second Hand Exposure: No; Hx Alcohol Use: Yes Alcohol type: wine Hx Substance Use: No Preferred Language: Japanese Communication Ability: Effective [employer] Required: No Beliefs That Will Affect Care: None Current Living Situation: Spouse Other Information That Helps Us Care for You: No Feels Safe at Home: Yes Safety Concerns: Feels Safe At This Time Assistive Devices: Glasses Physical Exam Constitutional: WD/WN, vitals as above + thin; no acute distress and not ill appearing Neck: normal visual inspection and trachea midline Respiratory: normal respiratory effort, lungs clear to auscultation Cardiovascular: RRR, no murmur, no edema Gastrointestinal (Abdomen): Inspection/Auscultation: abdomen normal to inspection and + hypoactive bowel sounds; abdomen not distended and + abnormal bowel sounds Percussion/Palpation: + abdomen tender (Bilateral lower abdomen on mild palpation), + guarding (Voluntary in the lower abdomen) and abdomen soft; abdomen not rigid and abdomen not firm Skin: no rashes, warm and dry Psychiatric: A+Ox3, euthymic affect Results & Data ([facility]) Vital Signs (Past 12 Hours) Vital Signs Temp Pulse Pulse Resp BP Pulse Ox O2 Del Method 10/10/21 04:42 36.7 C 66 18 107/54 L 98 Room Air 10/10/21 03:00 64 18 111/64 96 Room Air 10/10/21 02:30 69 18 110/66 94 Room Air 10/10/21 01:42 71 18 117/64 95 Room Air 10/10/21 01:03 69 18 99/63 L 95 Room Air 10/10/21 00:30 81 18 116/71 98 Room Air 10/09/21 23:16 36.8 C 77 18 113/69 97 Room Air 10/09/21 22:27 80 97 Room Air 10/09/21 22:27 80 20 117/77 97 Room Air Laboratory Results 10/10/21 10/09/21 10/09/21 Range/Units 02:55 21:00 21:00 WBC (4.8-10.8) K/ul RBC (3.93-5.22) M/uL Hgb (12.0-16.0) g/dl Hct (34.1-44.9) % MCV (80.0-100.0) fL MCH (25.0-34.0) pg MCHC (32.0-36.0) g/dL RDW Std Deviation (36.4-46.3) fL RDW Coeff of Gris (11.5-14.5) % Plt Count (130-400) K/uL MPV (9.4-12.3) fL Immature Gran % (Auto) % Neut % (Auto) % Lymph % (Auto) % [place] % (Auto) % Eos % (Auto) % Baso % (Auto) % Neut # (Auto) (1.4-6.5) K/uL Lymph # (Auto) (1.2-3.4) K/uL [place] # (Auto) (0.24-0.82) K/uL Eos # (Auto) (0-0.50) K/uL Baso # (Auto) (0-0.2) K/uL Immature Gran # (Auto) (0.00-0.02) K/uL Sodium 135 L (136-145) mmol/L Potassium 3.8 (3.5-5.1) mmol/L Chloride 101 (98-107) mmol/L Carbon Dioxide 27 (21-32) mmol/L Anion Gap 7 (3-11) BUN 6 (6-23) mg/dl Creatinine 0.67 (0.6-1.2) mg/dl Est Cr Clr Drug Dosing 69.5 ml/min Est GFR ( Amer) 114.7 ml/min Est GFR (Non-Af Amer) 99.0 ml/min BUN/Creatinine Ratio 9.0 L (10-20) Glucose 103 H (70-99(Fasting)) mg/dl Calcium 9.4 (8.5-10.1) mg/dl Total Bilirubin 1.2 H (0.2-1.0) mg/dl AST 13 (13-39) U/L ALT 10 (7-52) U/L Alkaline Phosphatase 74 (34-104) U/L Total Protein 7.3 (6.0-8.3) gm/dl Albumin 4.3 (3.4-5.0) gm/dl Globulin 3.0 (2.5-4.0) gm/dl Albumin/Globulin Ratio 1.4 (0.9-2) Lipase 29 (11-82) U/L Urine Color Yellow Urine Appearance Clear (Clear) Urine pH 6.5 (4.5-7.5) Ur Specific Watts 1.017 (1.000-1.030) Urine Protein Negative (Negative) Urine Glucose (UA) Negative (Negative) Urine Ketones 1+ H (Negative) Urine Blood Trace H (Negative) Urine Nitrite Negative (Negative) Urine Bilirubin Negative (Negative) Urine Urobilinogen Negative (Negative) Ur Leukocyte Esterase Negative (Negative) Urine WBC (Auto) 1-5 (0-5) /hpf Urine RBC (Auto) 0-4 (0-4) /hpf U Hyaline Cast (Auto) 0 (0-5) /lpf U Epithel Cells (Auto) 10-20 H (0-5) /lpf Urine Bacteria (Auto) Negative (Negative) SARS-CoV-2, RNA, NAAT NEGATIVE (NEGATIVE) 10/09/21 Range/Units 21:00 WBC 16.82 H (4.8-10.8) K/ul RBC 4.73 (3.93-5.22) M/uL Hgb 14.6 (12.0-16.0) g/dl Hct 44.4 (34.1-44.9) % MCV 93.9 (80.0-100.0) fL MCH 30.9 (25.0-34.0) pg MCHC 32.9 (32.0-36.0) g/dL RDW Std Deviation 43.2 (36.4-46.3) fL RDW Coeff of Gris 12.4 (11.5-14.5) % Plt Count 218 (130-400) K/uL MPV 9.7 (9.4-12.3) fL Immature Gran % (Auto) 0.4 % Neut % (Auto) 87.4 % Lymph % (Auto) 7.7 % [place] % (Auto) 4.0 % Eos % (Auto) 0.1 % Baso % (Auto) 0.4 % Neut # (Auto) 14.71 H (1.4-6.5) K/uL Lymph # (Auto) 1.29 (1.2-3.4) K/uL [place] # (Auto) 0.68 (0.24-0.82) K/uL Eos # (Auto) 0.02 (0-0.50) K/uL Baso # (Auto) 0.06 (0-0.2) K/uL Immature Gran # (Auto) 0.06 H (0.00-0.02) K/uL Sodium (136-145) mmol/L Potassium (3.5-5.1) mmol/L Chloride (98-107) mmol/L Carbon Dioxide (21-32) mmol/L Anion Gap (3-11) BUN (6-23) mg/dl Creatinine (0.6-1.2) mg/dl Est Cr Clr Drug Dosing ml/min Est GFR ( Amer) ml/min Est GFR (Non-Af Amer) ml/min BUN/Creatinine Ratio (10-20) Glucose (70-99(Fasting)) mg/dl Calcium (8.5-10.1) mg/dl Total Bilirubin (0.2-1.0) mg/dl AST (13-39) U/L ALT (7-52) U/L Alkaline Phosphatase (34-104) U/L Total Protein (6.0-8.3) gm/dl Albumin (3.4-5.0) gm/dl Globulin (2.5-4.0) gm/dl Albumin/Globulin Ratio (0.9-2) Lipase (11-82) U/L Urine Color Urine Appearance (Clear) Urine pH (4.5-7.5) Ur Specific Watts (1.000-1.030) Urine Protein (Negative) Urine Glucose (UA) (Negative) Urine Ketones (Negative) Urine Blood (Negative) Urine Nitrite (Negative) Urine Bilirubin (Negative) Urine Urobilinogen (Negative) Ur Leukocyte Esterase (Negative) Urine WBC (Auto) (0-5) /hpf Urine RBC (Auto) (0-4) /hpf U Hyaline Cast (Auto) (0-5) /lpf U Epithel Cells (Auto) (0-5) /lpf Urine Bacteria (Auto) (Negative) SARS-CoV-2, RNA, NAAT (NEGATIVE) Diagnostic Findings CT SCAN OF THE ABDOMEN AND PELVIS WITH IV CONTRAST CLINICAL HISTORY: Lower abdominal pain. Fever. COMPARISON STUDY: Abdominal CT dated 05/26/2021. TECHNIQUE: Following the IV administration of 93 cc of Optiray 300, CT scan of the abdomen and pelvis is performed from the lung bases to the proximal femora. Images are reviewed in the axial, sagittal, and coronal planes. IV contrast was administered without complication. A dose lowering technique was utilized adhering to the principles of ALARA. The examination is degraded by motion artifact. CT DOSE: 251.97 mGy.cm FINDINGS: Lung bases: The heart is normal in size and without pericardial effusion. A calcified granuloma is noted at the left lung base. The lung bases are otherwise clear noting dependent atelectasis. Liver: The contrast-enhanced liver is normal in size, contour, and attenuation. There is no intrahepatic biliary ductal dilatation. The hepatic veins and portal veins are patent. Gallbladder: Unremarkable. Spleen: Normal in size and attenuation. Pancreas: Unremarkable. Adrenal glands: Unremarkable. Kidneys: The contrast enhanced kidneys are normal in size and without hydronephrosis. The kidneys enhance symmetrically. There is a 4 mm nonobstructing left renal calculus. Abdominal vasculature: The abdominal aorta is normal in course and caliber. Bowel: There is rectosigmoid fecal retention. No bowel obstruction is seen. There is streak artifact from retained enteric contrast in the colon. There is wall thickening with mild surrounding inflammation and fluid involving the sigmoid suggesting acute diverticulitis. There is moderate sigmoid diverticu losis. No organized fluid collections identified to indicate abscess. There is tethering of the rectosigmoid with foci of extraluminal gas. Developing fistula formation is not excluded. The appendix is well-visualized and normal. Peritoneum: There are numerous foci of intraperitoneal free air seen below the diaphragm. There is a fat-containing umbilical hernia. Lymphadenopathy: None. Pelvic viscera: The bladder is distended and contains excreted IV contrast. The uterus and adnexa are normal as visualized. Skeletal structures: No lytic or blastic lesions are seen. IMPRESSION: 1. Intraperitoneal free air indicates visceral perforation. 2. This is likely related to sigmoid diverticulitis, which may be subacute or chronic. 3. No organized fluid collection is seen to indicate abscess. 4. The rectosigmoid appears mildly tethered with foci of linear stranding and extraluminal gas. Developing fistulas are not excluded in the deep pelvis. 5. There is no bowel obstruction. 6. Left-sided nephrolithiasis. 7. Distended bladder. 8. Additional findings as above. Tried to review her outpatient CT scan of the abdomen pelvis with p.o. and IV contrast however was not able to review images and the CT scan has not been read by radiologist.
[2021-10-10] MEDS: PIPERACILLIN/TAZOBACTAM 3.375 GM in DEXTROSE 5% 100 ML IV SCH (20:15)
[2021-10-11] MEDS: MoRPHine SULFATE 2 MG/ML CARP IV PRN ×4 (00:28→12:28)
[2021-10-11] MEDS: PIPERACILLIN/TAZOBACTAM 3.375 GM in DEXTROSE 5% 100 ML IV SCH ×3 (03:46→20:42)
[2021-10-11 06:45] LABS: Basophils # (auto) 0.05 K/uL (0-0.2); Basophils % (auto) 0.4 %; Eosinophils # (auto) 0.08 K/uL (0-0.50); Eosinophils % (auto) 0.7 %; Hematocrit (blood only) 37.7 % (34.1-44.9); Hemoglobin 12.4 g/dl (12.0-16.0); Immature Granulocytes # (auto) 0.04 K/uL (0.00-0.02); Immature Granulocytes % (auto) 0.3 %; Lymphocytes # (auto) 0.95 K/uL (1.2-3.4); Lymphocytes % (auto) 7.8 %; Mean Corpuscular Hemoglobin 30.6 pg (25.0-34.0); Mean Corpuscular Hgb Conc 32.9 g/dL (32.0-36.0); Mean Corpuscular Volume 93.1 fL (80.0-100.0); Mean Platelet Volume 9.7 fL (9.4-12.3); Monocytes # (auto) 0.67 K/uL (0.24-0.82); Monocytes % (auto) 5.5 %; Neutrophils # (auto) 10.44 K/uL (1.4-6.5); Neutrophils % (auto) 85.3 %; Platelet Count 174 K/uL (130-400); RDW Coefficient of Variation 12.3 % (11.5-14.5); RDW Standard Deviation 42.7 fL (36.4-46.3); Red Blood Count 4.05 M/uL (3.93-5.22); White Blood Count 12.23 K/ul (4.8-10.8)
--- NOTE | 2021-10-11 07:23 | Hospitalist Progress Note ---
Date of Service October 11, 2021 Assessment & Plan (1) Diverticulitis: Plan: Pt is a 55 yo female with history of acute sigmoid diverticulitis with abscess in May 2021 and kidney stones presenting with lower abdominal pain. CT abdomen shows acute diverticulitis with microperforations. Diverticulitis -Keep NPO for today (day 2) consider advancement of diet to clear liquid tomorrow pending clinical status -Continue Zosyn at 3.375 g q8hr x4-7 days total (day 2 today) -Morphine q3hr PRN for pain -Zofran q6hr PRN for nausea -Continue LR at 80mL/hr -General surgery recommended conservative tx with IV abx, NPO, and pain control. They recommended a f/u outpatient to discuss surgical management d/t 2 attacks within 6 months -Day 2- if she worsens or fails to improve - will need recheck CT scan Kidney stone - stable from imaging in May 2021 - No urinary symptoms on this admission or within the past months - Monitor for development of symptoms FEN: LR at 80mL/hr, NPO DVT ppx: low risk Code: Full Dispo: med/surg (2) Kidney stones: Admission and Anticipated Discharge Date Admission Date: October 10, 2021 Supervising Physician Co-Signing Physician Notes Resident Physician Supervision Note: I independently interviewed and examined the patient and verified the yates history and physical, reviewed labs and image studies and agree with resident Dr. Hodges findings and care plan. Subjective Pt is a 55 yo female with PMH of acute diverticulitis (05/2021) and renal calculi presenting with progressive abdominal pain for 2 days. Pt has a hx of sigmoid diverticulitis with 3 cm abscess in May 2021 treated with zosyn inpatient and cipro and metronidazole outpatient. In ER: Found to have acute diverticulitis with suspected microperforation on CT. Patient had elevated temperature of 37.8 upon arrival. WBC=16.82. 10/10/2021: Pt still with abdominal pain 2-3/10 mostly in band across her lower abdomen. She describes that the pain has evolved from sharp to more dull today. She does still feel bloated but not as much as yesterday. She voices frustrations concerning following a semi-strict low fiber diet and trying to avoid sweets after her diverticulitis episode in May. She denies fevers, chills, diarrhea, hematochezia, urinary frequency, or pain with urination. 10/11/2021: Pt still with abdominal pain throughout the night and into this morning. She required 2-3 doses of pain medications overnight. Still denying fevers, chills, diarrhea, and urinary symptoms. Physical Exam Constitutional: NAD, afebrile, vitals WNL Respiratory: CTA bilaterally. No rhonchi, rales, or wheezing. No increased work of breathing. Cardiovascular: RRR. No murmur noted. Gastrointestinal (Abdomen): Tender with palpation in lower abdomen, mostly in suprapubic area. No masses noted. +BS Results & Data Results & Data ([facility]) Vital Signs (Past 12 Hours) Vital Signs Pulse Resp BP Pulse Ox O2 Del Method 10/11/21 04:38 89 18 107/78 98 Room Air Resident Activity Tracking Resident Involvement: Resident Care Provided Care Provided: Adult Hospital Medicine
[2021-10-11 07:34] LABS: Albumin Level 3.2 gm/dl (3.4-5.0); BUN Creatinine Ratio 15.7 (10-20); Bilirubin Direct 0.1 mg/dl (0-0.2); Bilirubin,Total 0.9 mg/dl (0.2-1.0); Calcium 8.2 mg/dl (8.5-10.1); Creatinine Clr Calc Pharmacy 91.3 ml/min; Est GFR (African American) 125.5 ml/min; Est GFR (Non-African American) 108.3 ml/min; Potassium 3.7 mmol/L (3.5-5.1); Total Protein 5.7 gm/dl (6.0-8.3)
[2021-10-11] MEDS: LACTATED RINGER'S 1,000 ML IV SCH ×2 (09:58→21:45)
[2021-10-11] MEDS ORDERED: ACETAMINOPHEN 1000 MG/100 ML IV IV SCH (13:00)
[2021-10-11] MEDS ORDERED: ACETAMINOPHEN IV SCH ×2 (14:00)
[2021-10-11] MEDS: ACETAMINOPHEN IV SCH ×2 (14:08→20:41)
--- NOTE | 2021-10-11 14:57 | Surgery Progress Note ---
Date of Service October 11, 2021 Assessment & Plan (1) Diverticulitis: Plan 55-year-old female with second episode of complicated diverticulitis within the last 6 months. Her last episode of complicated diverticulitis was with a 3 cm abscess however this episode is showing microperforation with no associated abscess and foci of intraperitoneal free air. 10/11/2021: afebrile, leukocytosis improved to 12k (16k yesterday) Abdominal pain persistent, no peritonitis or rigidity no n,v Plan: Continue conservative measures with IV antibiotics continue pain management, will start scheduled IV Tylenol as patient does not like the narcotic pain medication. IV Morphine as needed for pain. IV zofran as needed for nausea Keep npo may have ice chips Will continue to follow Dr. Russell has seen and examined patient and agrees with above. Admission and Anticipated Discharge Date Admission Date: October 10, 2021 Supervising Physician Co-Signing Physician Notes I have seen and examined the patient and agree with the above assessment and plan. Slight improvement since yesterday. We will continue the IV antibiotics. If she worsens or fails to improve she may require repeat CT scan. We will continue to follow. Subjective had increase in pain this morning around 4 am required IV pain medication which helped no fever or chills no n,v Physical Exam Constitutional: WD/WN, vitals as above + thin; no acute distress and not ill appearing Neck: normal visual inspection and trachea midline Respiratory: normal respiratory effort; no respiratory distress Gastrointestinal (Abdomen): Inspection/Auscultation: abdomen normal to inspection; abdomen not distended Percussion/Palpation: + abdomen tender (moderate tenderness in bilateral low quadrants), + guarding (voluntary) and abdomen soft; abdomen not rigid and abdomen not firm Skin: no rashes, warm and dry Psychiatric: A+Ox3, euthymic affect Results & Data ([facility]) Vital Signs (Past 12 Hours) Vital Signs Pulse Resp BP Pulse Ox O2 Del Method 10/11/21 08:33 88 16 113/72 97 10/11/21 04:38 89 18 107/78 98 Room Air Laboratory Results 10/11/21 10/11/21 Range/Units 05:59 05:59 WBC 12.23 H (4.8-10.8) K/ul RBC 4.05 (3.93-5.22) M/uL Hgb 12.4 (12.0-16.0) g/dl Hct 37.7 (34.1-44.9) % MCV 93.1 (80.0-100.0) fL MCH 30.6 (25.0-34.0) pg MCHC 32.9 (32.0-36.0) g/dL RDW Std Deviation 42.7 (36.4-46.3) fL RDW Coeff of Gris 12.3 (11.5-14.5) % Plt Count 174 (130-400) K/uL MPV 9.7 (9.4-12.3) fL Immature Gran % (Auto) 0.3 % Neut % (Auto) 85.3 % Lymph % (Auto) 7.8 % [place] % (Auto) 5.5 % Eos % (Auto) 0.7 % Baso % (Auto) 0.4 % Neut # (Auto) 10.44 H (1.4-6.5) K/uL Lymph # (Auto) 0.95 L (1.2-3.4) K/uL [place] # (Auto) 0.67 (0.24-0.82) K/uL Eos # (Auto) 0.08 (0-0.50) K/uL Baso # (Auto) 0.05 (0-0.2) K/uL Immature Gran # (Auto) 0.04 H (0.00-0.02) K/uL Sodium 135 L (136-145) mmol/L Potassium 3.7 (3.5-5.1) mmol/L Chloride 106 (98-107) mmol/L Carbon Dioxide 21 (21-32) mmol/L Anion Gap 8 (3-11) BUN 8 (6-23) mg/dl Creatinine 0.51 L (0.6-1.2) mg/dl Est Cr Clr Drug Dosing 91.3 ml/min Est GFR ( Amer) 125.5 ml/min Est GFR (Non-Af Amer) 108.3 ml/min BUN/Creatinine Ratio 15.7 (10-20) Glucose 71 (70-99(Fasting)) mg/dl Calcium 8.2 L (8.5-10.1) mg/dl Total Bilirubin 0.9 (0.2-1.0) mg/dl Direct Bilirubin 0.1 (0-0.2) mg/dl AST 11 L (13-39) U/L ALT 7 (7-52) U/L Alkaline Phosphatase 64 (34-104) U/L Total Protein 5.7 L D (6.0-8.3) gm/dl Albumin 3.2 L (3.4-5.0) gm/dl
[2021-10-12] MEDS: ACETAMINOPHEN IV SCH ×4 (02:03→20:08)
[2021-10-12] MEDS: PIPERACILLIN/TAZOBACTAM 3.375 GM in DEXTROSE 5% 100 ML IV SCH ×3 (04:55→20:32)
[2021-10-12 07:01] LABS: Basophils # (auto) 0.04 K/uL (0-0.2); Basophils % (auto) 0.5 %; Eosinophils # (auto) 0.23 K/uL (0-0.50); Eosinophils % (auto) 3.1 %; Hematocrit (blood only) 38.9 % (34.1-44.9); Hemoglobin 12.9 g/dl (12.0-16.0); Immature Granulocytes # (auto) 0.02 K/uL (0.00-0.02); Immature Granulocytes % (auto) 0.3 %; Lymphocytes # (auto) 0.88 K/uL (1.2-3.4); Lymphocytes % (auto) 11.7 %; Mean Corpuscular Hemoglobin 30.5 pg (25.0-34.0); Mean Corpuscular Hgb Conc 33.2 g/dL (32.0-36.0); Mean Platelet Volume 9.5 fL (9.4-12.3); Monocytes # (auto) 0.57 K/uL (0.24-0.82); Monocytes % (auto) 7.6 %; Neutrophils # (auto) 5.78 K/uL (1.4-6.5); Neutrophils % (auto) 76.8 %; Platelet Count 186 K/uL (130-400); RDW Standard Deviation 40.4 fL (36.4-46.3); Red Blood Count 4.23 M/uL (3.93-5.22); White Blood Count 7.52 K/ul (4.8-10.8)
--- NOTE | 2021-10-12 07:15 | Hospitalist Progress Note ---
Date of Service October 12, 2021 Assessment & Plan (1) Diverticulitis: Plan: Pt is a 55 yo female with history of acute sigmoid diverticulitis with abscess in May 2021 and kidney stones presenting with lower abdominal pain. CT abdomen shows acute diverticulitis with microperforations. Diverticulitis - Kept NPO for first 2 days of admission - Improving clinically, no need for repeat CT -Continue Zosyn at 3.375 g q8hr x4-7 days total (day 3 today) - Advanced diet to clear liquid this AM, tolerating well throughout the day, advancing to low fiber diet for dinner tonight and possible d/c in am. -Morphine q3hr PRN for pain -Zofran q6hr PRN for nausea -Continue LR at 80mL/hr -General surgery recommended conservative tx with IV abx, NPO, and pain control. They recommended a f/u outpatient to discuss surgical management d/t 2 attacks within 6 months Kidney stone - stable from imaging in May 2021 - No urinary symptoms on this admission or within the past months - Monitor for development of symptoms FEN: LR at 80mL/hr, low fiber diet DVT ppx: low risk Code: Full Dispo: anticipate d/c home in am (2) Kidney stones: Admission and Anticipated Discharge Date Admission Date: October 10, 2021 Supervising Physician Co-Signing Physician Notes Resident Physician Supervision Note: I independently interviewed and examined the patient and verified the yates history and physical, reviewed labs and image studies and agree with resident Dr. oHdges findings and care plan. Subjective Pt is a 55 yo female with PMH of acute diverticulitis (05/2021) and renal calculi presenting with progressive abdominal pain for 2 days. Pt has a hx of sigmoid diverticulitis with 3 cm abscess in May 2021 treated with zosyn inpatient and cipro and metronidazole outpatient. In ER: Found to have acute diverticulitis with suspected microperforation on CT. Patient had elevated temperature of 37.8 upon arrival. WBC=16.82. 10/10/2021: Pt still with abdominal pain 2-3/10 mostly in band across her lower abdomen. She describes that the pain has evolved from sharp to more dull today. She does still feel bloated but not as much as yesterday. She voices frustrations concerning following a semi-strict low fiber diet and trying to avoid sweets after her diverticulitis episode in May. She denies fevers, chills, diarrhea, hematochezia, urinary frequency, or pain with urination. 10/11/2021: Pt still with abdominal pain throughout the night and into this morning. She required 2-3 doses of pain medications overnight. Still denying fevers, chills, diarrhea, and urinary symptoms. 10/12/2021: Pt's abdominal pain is much improved today. Mild bloating with feelings of increased gas. She is walking around her room a lot to try to improve this. Required no pain meds overnight. Denies fevers, chills, diarrhea, SOB, and leg pain. Pt had two bouts of diarrhea since advancing her diet to clear liquids this AM. Pt had issues with outpatient antibiotics during 05/2021 diverticulitis episode (diarrhea, upset stomach, bloating). She would like to try a different ABX this time around to try to avoid this. Physical Exam Constitutional: NAD, afebrile. Vitals WNL Respiratory: CTA bilaterally. No rhonchi, wheezing, or rales. Non labored breathing. Cardiovascular: RRR. No murmur noted. No LE edema. Gastrointestinal (Abdomen): Overall nontender, +BS. Slight tenderness in RLQ, no suprapubic pain. No masses noted. Results & Data Results & Data ([facility]) Vital Signs (Past 12 Hours) Vital Signs Temp Pulse Resp BP Pulse Ox O2 Del Method 10/11/21 20:40 Room Air 10/11/21 22:08 36.4 C L 84 16 103/69 97 Room Air Resident Activity Tracking Resident Involvement: Resident Care Provided Care Provided: Adult Hospital Medicine
[2021-10-12 07:26] LABS: BUN Creatinine Ratio 15.2 (10-20); Calcium 8.3 mg/dl (8.5-10.1); Creatinine Clr Calc Pharmacy 101.2 ml/min; Est GFR (African American) 129.8 ml/min; Potassium 3.6 mmol/L (3.5-5.1)
--- NOTE | 2021-10-12 11:04 | Surgery Progress Note ---
Date of Service October 12, 2021 Assessment & Plan (1) Diverticulitis: Plan 55-year-old female with second episode of complicated diverticulitis within the last 6 months. Her last episode of complicated diverticulitis was with a 3 cm abscess however this episode is showing microperforation with no associated abscess and foci of intraperitoneal free air. 10/12/2021: afebrile, leukocytosis resolved Abdominal pain improved no n,v + flatus Plan: Continue conservative measures continue IV Tylenol q 8 hours. IV Morphine as needed for pain. Continue IV antibiotics Okay for clear liquids IV zofran as needed for nausea Will continue to follow Dr. Russell has seen and examined patient and agrees with above. Admission and Anticipated Discharge Date Admission Date: October 10, 2021 Supervising Physician Co-Signing Physician Notes I have seen and examined the patient personally and agree with the above assessment plan. She continues to improve. She may advance to clear liquid diet. Continue IV antibiotics. She will require colonoscopy in 4 to 6 weeks. We will then have her return to clinic to discuss definitive management of the diverticulitis. Subjective Feeling much better today lower abdominal pain has improved, feels like gas pain no n,v passing some gas no fevers Physical Exam Constitutional: WD/WN, vitals as above no acute distress and not ill appearing Neck: normal visual inspection and trachea midline Respiratory: normal respiratory effort; no respiratory distress Gastrointestinal (Abdomen): Inspection/Auscultation: abdomen normal to inspection; abdomen not distended Percussion/Palpation: + abdomen tender (bliateral lower abdomen on deep palpation, improved) and abdomen soft; no guarding, abdomen not rigid and abdomen not firm Skin: no rashes, warm and dry Psychiatric: A+Ox3, euthymic affect Results & Data ([facility]) Vital Signs (Past 12 Hours) Vital Signs Temp Pulse Resp BP Pulse Ox O2 Del Method 10/12/21 08:15 37 C 81 16 132/76 96 Room Air Laboratory Results 10/12/21 10/12/21 Range/Units 06:37 06:37 WBC 7.52 (4.8-10.8) K/ul RBC 4.23 (3.93-5.22) M/uL Hgb 12.9 (12.0-16.0) g/dl Hct 38.9 (34.1-44.9) % MCV 92.0 (80.0-100.0) fL MCH 30.5 (25.0-34.0) pg MCHC 33.2 (32.0-36.0) g/dL RDW Std Deviation 40.4 (36.4-46.3) fL RDW Coeff of Gris 12.0 (11.5-14.5) % Plt Count 186 (130-400) K/uL MPV 9.5 (9.4-12.3) fL Immature Gran % (Auto) 0.3 % Neut % (Auto) 76.8 % Lymph % (Auto) 11.7 % [place] % (Auto) 7.6 % Eos % (Auto) 3.1 % Baso % (Auto) 0.5 % Neut # (Auto) 5.78 (1.4-6.5) K/uL Lymph # (Auto) 0.88 L (1.2-3.4) K/uL [place] # (Auto) 0.57 (0.24-0.82) K/uL Eos # (Auto) 0.23 (0-0.50) K/uL Baso # (Auto) 0.04 (0-0.2) K/uL Immature Gran # (Auto) 0.02 (0.00-0.02) K/uL Sodium 136 (136-145) mmol/L Potassium 3.6 (3.5-5.1) mmol/L Chloride 105 (98-107) mmol/L Carbon Dioxide 21 (21-32) mmol/L Anion Gap 10 (3-11) BUN 7 (6-23) mg/dl Creatinine 0.46 L (0.6-1.2) mg/dl Est Cr Clr Drug Dosing 101.2 ml/min Est GFR ( Amer) 129.8 ml/min Est GFR (Non-Af Amer) 112.0 ml/min BUN/Creatinine Ratio 15.2 (10-20) Glucose 64 L (70-99(Fasting)) mg/dl Calcium 8.3 L (8.5-10.1) mg/dl
[2021-10-12] MEDS: LACTATED RINGER'S 1,000 ML IV SCH ×2 (11:55→23:15)
[2021-10-13] MEDS: ACETAMINOPHEN IV SCH ×2 (02:07→09:31)
[2021-10-13] MEDS: PIPERACILLIN/TAZOBACTAM 3.375 GM in DEXTROSE 5% 100 ML IV SCH (04:55)
[2021-10-13 05:55] VITALS: BP 114/74; PULSE 53; TEMP 97.9; O2SAT 97
[2021-10-13 08:02] LABS: Basophils # (auto) 0.04 K/uL (0-0.2); Basophils % (auto) 0.6 %; Eosinophils # (auto) 0.16 K/uL (0-0.50); Eosinophils % (auto) 2.6 %; Hematocrit (blood only) 40.3 % (34.1-44.9); Hemoglobin 13.4 g/dl (12.0-16.0); Immature Granulocytes # (auto) 0.02 K/uL (0.00-0.02); Immature Granulocytes % (auto) 0.3 %; Lymphocytes # (auto) 0.76 K/uL (1.2-3.4); Lymphocytes % (auto) 12.3 %; Mean Corpuscular Hemoglobin 30.7 pg (25.0-34.0); Mean Corpuscular Hgb Conc 33.3 g/dL (32.0-36.0); Mean Corpuscular Volume 92.4 fL (80.0-100.0); Mean Platelet Volume 9.6 fL (9.4-12.3); Monocytes # (auto) 0.43 K/uL (0.24-0.82); Neutrophils # (auto) 4.76 K/uL (1.4-6.5); Neutrophils % (auto) 77.2 %; Platelet Count 222 K/uL (130-400); RDW Standard Deviation 41.2 fL (36.4-46.3); Red Blood Count 4.36 M/uL (3.93-5.22); White Blood Count 6.17 K/ul (4.8-10.8)
--- NOTE | 2021-10-13 10:35 | Surgery Progress Note ---
Date of Service October 13, 2021 Assessment & Plan (1) Diverticulitis: Plan 55-year-old female with second episode of complicated diverticulitis within the last 4 months. Her last episode of complicated diverticulitis was with a 3 cm abscess however this episode is showing microperforation with no associated abscess and foci of intraperitoneal free air. 10/13/2021: afebrile, leukocytosis resolved Abdominal pain improved and minimal in LLQ no n,v + flatus and diarrhea Plan: Okay from surgical standpoint for discharge will need total of 14 days of IV and oral antibiotics Low fiber diet F/u with GI as scheduled on 10/25/2021 F/u with Dr. Russell in 2 weeks, will discuss surgical options given 2 episodes of complicated diverticulitis in last 4 months after obtaining colonoscopy in 6- [address] Russell has seen patient and agrees with above. Admission and Anticipated Discharge Date Admission Date: October 10, 2021 Supervising Physician Co-Signing Physician Notes I have seen and examined the patient personally and agree with the above assessment plan. She is doing much better. We will change her to oral antibio tics. Probable discharge today. She will require colonoscopy in 4 to 6 weeks. We will then have her return to clinic to discuss definitive management of the diverticulitis. Subjective feeling about same as yesterday but still significantly improved compared to admission pain about 1/10 no n,v tolerated low fiber diet but not eating much having diarrhea Physical Exam Constitutional: WD/WN, vitals as above no acute distress and not ill appearing Respiratory: normal respiratory effort; no respiratory distress Gastrointestinal (Abdomen): Inspection/Auscultation: abdomen normal to inspection; abdomen not distended Percussion/Palpation: + abdomen tender (very mild in LLQ on deep palpation) and abdomen soft; no guarding and abdomen not rigid Skin: no rashes, warm and dry Psychiatric: A+Ox3, euthymic affect Results & Data ([facility]) Vital Signs (Past 12 Hours) Vital Signs Temp Pulse Resp BP Pulse Ox O2 Del Method 10/13/21 05:55 36.6 C 53 L 18 114/74 97 Room Air 10/12/21 22:55 36.5 C 62 17 101/64 95 Room Air Laboratory Results 10/13/21 Range/Units 07:22 WBC 6.17 (4.8-10.8) K/ul RBC 4.36 (3.93-5.22) M/uL Hgb 13.4 (12.0-16.0) g/dl Hct 40.3 (34.1-44.9) % MCV 92.4 (80.0-100.0) fL MCH 30.7 (25.0-34.0) pg MCHC 33.3 (32.0-36.0) g/dL RDW Std Deviation 41.2 (36.4-46.3) fL RDW Coeff of Gris 12.0 (11.5-14.5) % Plt Count 222 (130-400) K/uL MPV 9.6 (9.4-12.3) fL Immature Gran % (Auto) 0.3 % Neut % (Auto) 77.2 % Lymph % (Auto) 12.3 % Levy % (Auto) 7.0 % Eos % (Auto) 2.6 % Baso % (Auto) 0.6 % Neut # (Auto) 4.76 (1.4-6.5) K/uL Lymph # (Auto) 0.76 L (1.2-3.4) K/uL Levy # (Auto) 0.43 (0.24-0.82) K/uL Eos # (Auto) 0.16 (0-0.50) K/uL Baso # (Auto) 0.04 (0-0.2) K/uL Immature Gran # (Auto) 0.02 (0.00-0.02) K/uL
--- NOTE | 2021-10-13 12:21 | Discharge Summary ---
Date of Service October 13, 2021 Admission HPI Per Admitting Provider Asya Villar is a 55yo female with history of acute sigmoid diverticulitis with 3cm abscess in May 2021 for which she was hospitalized. She was treated conservatively, given Zosyn and DCd home on Ciprofloxacin and Flagyl. Patient presents today with 2 days of progressive suprapubic and lower abdominal pain with associated nausea, bloating and subjective fever. She feels similarly to when she had acute diverticulitis in May. She was seen by [facility] yesterday with these complaints and was ordered a CT of the abdomen, blood work and instructed to continue a clear liquid diet. She was to have her colonoscopy performed on 10/10/21 but that has been postponed x [address] of the abdomen performed in the ER suggestive of acute diverticulitis with microperforation. Findings discussed with ER provider at time of read. Non-obstructing left renal calculi noted which was present on CT in May as well. Admission Exam Per Admitting Provider General: patient resting comfortably, NAD, non-toxic in appearance, AA&O x 4 Skin: warm, dry, intact, no rashes or lesions HEENT: NC/AT, PERRL, EOMI, anicteric sclera, conjunctiva without injection, external ear normal to inspection and nontender, nares patent, moist mucus membranes, dentition intact, no oropharyngeal lesions, neck supple, trachea midline, no LAD, no thyromegaly, no JVD Heart: +S1/S2, regular, no m/r/g Lungs: equal air entry bilaterally, no rales/rhonchi/wheezes Abd: +BS, soft, ND, tender in lower abdomen and RLQ with voluntary guarding, no masses/organomegaly/ascites Ext: warm, 2+ pulses in UE/LE bilaterally, no clubbing/cyanosis or edema Neuro: nonfocal, patient AA&O x 4, speech intact, no facial droop, moving all extremities on command with equal strength 5/5 Principal Diagnosis acute diverticulitis Discharge Exam Constitutional NAD, vitals WNL. Respiratory CTA bilaterally. Non labored breathing. No rhonchi, crackles, or wheezing. Cardiovascular RRR. No murmur noted. Gastrointestinal (Abdomen) Nontender, +BS. No masses noted. Discharge Data Allergies Allergy/AdvReac Type Severity Reaction Status Date / Time No Known Allergies Allergy Unknown Verified 05/22/21 16:04 Consultations 10/10/21 03:23 ED Decision to Admit Stat 10/10/21 04:27 Consult General Surgery Routine Ordered Studies 10/09/21 22:40 CT abd pelvis IV con only Urgent Hospital Course (1) Diverticulitis: Pt is a 55 yo female with history of acute sigmoid diverticulitis with abscess in May 2021 and kidney stones presenting with lower abdominal pain. CT abdomen shows acute diverticulitis with microperforations. Acute Diverticulitis - Kept NPO for first 2 days of admission and given IVF - Received Zosyn at 3.375 g q8hr x3 full days - few episodes of diarrhea - Seen by General surgery - recommended conservative tx and f/u outpatient to discuss surgical management d/t 2 attacks within 6 months - Advanced diet from NPO to clear liquids to low fiber diet, tolerated well - d/c home with cipro 500 mg BID and metronidazole 500 mg q8hr x7 days Kidney stone - stable from imaging in May 2021 - No urinary symptoms on this admission or within the past months FEN: continue low fiber diet at home Code: Full Dispo: home (2) Kidney stones: Total Time Total Time Spent Total Time Spent (In Minutes): As per attending attestation Discharge Plan Discharge Items Patient Disposition: Home - Self-Care Reason For Visit: ACUTE DIVERTICULITIS Discharge Diagnosis: Acute Diverticulitis Condition on Discharge: Good Activity: As commented below Activity Comment: Advance activity as tolerated Non-emergency contact: Primary Care Provider Call non-emergency contact if: you have any medication questions, your symptoms worsen, your pain is not controlled and you have a fever Follow-up/Referrals: Emmanuel Garsia CRNP [Nurse Practitioner] - 10/25/21 1:00 pm (video appointment.) Fei Russell MD [Physician] - 10/26/21 10:30 am () Le Gutierrez MD [Primary Care Provider] - 10/20/21 8:50 am (Dr. Radford) Diet: Other - See Diet Comment Diet Comment: Low fiber diet Addtl Attending Provider Instructions: You were admitted for acute diverticulitis and treated with IV antibiotics. You pain improved and you have tolerated diet very well. You will continue oral antibiotics at home. Please keep the follow up appointment with Emmanuel Garsia on 10/25. Since this was your second episode of diverticulitis in short period of time, you should set up a follow up with surgeon and set up follow up appointment with ship painter helper. Addtl Psychology Technician Provider Instructions: Surgical recommendations: - Finish entire course of antibiotics as prescribed - low fiber diet for at least 2 weeks - avoid large amount of nuts/seeds/popcorn but can have some of these in moderate - Will discuss surgical interventions given two episodes of complicated diverticulitis in last 4 months - Will need colonoscopy in 6-8 weeks. - Call office at [phone] if you have any questions prior to your surgical follow-up Pending Studies at Discharge: No Stand-Alone Forms: [facility] Cess[facility] Medications and DC Order Prescriptions: New ciprofloxacin HCl 500 mg tablet 500 mg PO BID Qty: 14 0RF Rx Instructions: Take 1 tab twice a day for 7 days metronidazole 500 mg tablet 500 mg PO Q8H Qty: 21 0RF Rx Instructions: Take 1 tab three times a day for 7 days Continued docusate sodium [Stool Softener] 100 mg Capsule 100 mg PO QPM multivitamin Tablet 1 tab PO DAILY Qty: 30 3RF Discharge Orders: Discharge Order (Routine); Ordered 10/13/21 Ordered By: Le Gutierrez Admission Data Admit Date/Time: 10/10/21 03:38 Attending Provider: Le Gutierrez Admit Provider: Josephine Gamboa Primary Care Provider: Le Gutierrez Other Providers: Cleve Herman ; Josephine Gamboa Other Interventions: Discharge Summary Assessment (RN) Last Done: 10/13/21 10:44 Supervising Physician Co-Signing Physician Notes Resident Physician Supervision Note: I independently interviewed and examined the patient and verified the yates hi story and physical, reviewed labs and image studies and agree with resident Dr. Hodges findings and care plan.
== END 2021-10-13 13:30 | disposition home or self-care (01) | DRG 392 ==
LOC: ED 20:24 → SUATTDRO 10-10 03:38 → EDINP 10-10 03:38 → 3E 10-11 04:28
DX: R10.30 Lower abdominal pain, unspecified; D72.829 Elevated white blood cell count, unspecified; R50.9 Fever, unspecified; N20.0 Calculus of kidney; K57.20 Diverticulitis of large intestine with perforation and abscess without bleeding

== ENCOUNTER 2022-01-15 08:40 | Inpatient (IN) ==
--- NOTE | 2022-01-08 11:42 | Anesthesiology Consultation ---
Date of Service January 08, 2022 Assessment & Plan (1) Encounter for pre-operative examination: Plan - COVID screening: Per gate keeper on 01/08/2022: Travel screen negative, no known COVID-19 positive contacts or current COVID-19 related symptoms in past 2 weeks. To surgeon's discretion if preop COVID testing is needed. Chart Review Chart Review: Acceptable Risk for Surgery and Patient NOT seen in Pre Admission Testing History Surgery Operation Date: 01/15/22 07:15 Proposed Procedures p Laparoscopic Sigmoidectomy Possible Open - Fei Russell MD Height/Weight Height: 5 ft 3 in Weight: 43.998 kg Allergies Allergy/AdvReac Type Severity Reaction Status Date / Time No Known Allergies Allergy Unknown Verified 01/08/22 11:10 Medications Home Medications Medication Instructions Recorded Confirmed Last Taken docusate sodium 100 mg capsule 100 mg PO QPM 05/22/21 01/08/22 Unknown (Stool Softener) acetaminophen 325 mg tablet 325 mg PO DAILY PRN Headache 01/08/22 01/08/22 Unknown ascorbic acid 1,000 1 ea PO QAM 01/08/22 01/08/22 Unknown gs-[id number]-bdcagrte powder effervescent pack (Emergen-C) multivitamin 1 tab PO QAM 01/08/22 01/08/22 Unknown Past Medical History Medical History Diverticular disease Kidney stones hx of Lower abdominal pain Past Family History Family History Other No family history of adverse response to anesthesia Past Surgical History Surgical History History of colonoscopy History of lithotripsy History of tooth extraction History of wisdom tooth extraction Social History Smoking Status: Never smoker Do You Dip or Chew Tobacco: No Hx Alcohol Use: Yes Alcohol type: wine alcohol intake frequency: a few times a month Hx Substance Use: No substance use type: does not use Testing Laboratory Results 12/22/2021 WBC: 7.3 H/H: 15/46 PLATELETS: 247 SODIUM: 140 POTASSIUM: 4.4 CHLORIDE: 100 CO2: 29 BUN: 16 CREATININE: 0.6 GLUCOSE: 92 Electrocardiogram Date: 12/22/21 Sinus bradycardia, rate 59 bpm Rightward axis Other Testing Abdomen pelvis CT 10/09/21 Lung bases: The heart is normal in size and without pericardial effusion. A calcified granuloma is noted at the left lung base. The lung bases are otherwise clear noting dependent atelectasis. Liver: The contrast-enhanced liver is normal in size, contour, and attenuation. There is no intrahepatic biliary ductal dilatation. The hepatic veins and portal veins are patent. Kidneys: The contrast enhanced kidneys are normal in size and without hydronephrosis. The kidneys enhance symmetrically. There is a 4 mm nonobstructi ng left renal calculus. Abdominal vasculature: The abdominal aorta is normal in course and caliber. Bowel: There is rectosigmoid fecal retention. No bowel obstruction is seen. There is streak artifact from retained enteric contrast in the colon. There is wall thickening with mild surrounding inflammation and fluid involving the sigmoid suggesting acute diverticulitis. There is moderate sigmoid div erticulosis. No organized fluid collections identified to indicate abscess. There is tethering of the rectosigmoid with foci of extraluminal gas. Developing fistula formation is not excluded. The appendix is well-visualized and normal. Peritoneum: There are numerous foci of intraperitoneal free air seen below the diaphragm. There is a fat-containing umbilical hernia. Lymphadenopathy: None. Pelvic viscera: The bladder is distended and contains excreted IV contrast. The uterus and adnexa are normal as visualized. Skeletal structures: No lytic or blastic lesions are seen. IMPRESSION: 1. Intraperitoneal free air indicates visceral perforation. 2. This is likely related to sigmoid diverticulitis, which may be subacute or chronic. 3. No organized fluid collection is seen to indicate abscess. 4. The rectosigmoid appears mildly tethered with foci of linear stranding and extraluminal gas. Developing fistulas are not excluded in the deep pelvis. 5. There is no bowel obstruction. 6. Left-sided nephrolithiasis. 7. Distended bladder. 8. Additional findings as above.
[~2022-01-15 08:40] MED LIST changes: +LR 15ML/HR IV SCH; -ONDA4TAB7 SL; +cefOXitin 2,000 MG in DEXTROSE 5% 50 ML IV SCH
[2022-01-15] MEDS ORDERED: fentaNYL citrate 100 MCG/2 ML VIAL ONE ×2 (09:54→13:00)
[2022-01-15] MEDS ORDERED: ONDANSETRON INJ 2 MG/ML 2 ML VIAL ONE (09:54)
[2022-01-15] MEDS ORDERED: ROCURONIUM BROMIDE 10 MG/ML 5 ML VIAL IV ONE ×2 (09:54→13:00)
[2022-01-15] MEDS ORDERED: LIDOCAINE 2% MPF LOCAL 5 ML VIAL INFIL ONE (09:54)
[2022-01-15] MEDS ORDERED: MIDAZOLAM HCL 1 MG/ML 2ML VIAL ONE (09:54)
[2022-01-15] MEDS ORDERED: DEXAMETHASONE SOD INJ 4 MG/ML VIAL ONE (09:54)
[2022-01-15] MEDS ORDERED: PROPOFOL IV EMULSION 10 MG/ML 20 ML VIAL IV ONE (09:54)
[2022-01-15] MEDS ORDERED: NEOSTIGMINE METHYLSULFATE 1 MG/ML 10ML VIAL ONE (10:02)
[2022-01-15] MEDS ORDERED: GLYCOPYRROLATE 0.2 MG/ML VIAL ONE ×2 (10:02→10:05)
--- NOTE | 2022-01-15 10:13 | History & Physical Bridge Note ---
Date of Service January 15, 2022 History & Physical Bridge Note I have examined the patient, reviewed the History & Physical and in the interval since the performance of the History & Physical I have noted the following changes of clinical significance: no changes noted
[2022-01-15] MEDS ORDERED: PROMETHAZINE HCL 12.5 MG in SODIUM CHLORIDE 0.9% 50 ML IV PRN ×2 (11:02→18:16)
[2022-01-15] MEDS ORDERED: ONDANSETRON INJ 2 MG/ML 2 ML VIAL IV PRN ×2 (11:02→18:16)
[2022-01-15] MEDS ORDERED: LABETALOL HCL IV 5 MG/ML 20ML IV PRN (11:02)
[2022-01-15] MEDS ORDERED: ePHEDrine sulfate 50 MG/ML AMP IV PRN (11:02)
[2022-01-15] MEDS ORDERED: NALOXONE HCL 0.4 MG/1 ML VIAL/CARP IV PRN (11:02)
[2022-01-15] MEDS ORDERED: FLUMAZENIL 0.1 MG/1 ML 10 ML VIAL IV PRN (11:02)
[2022-01-15] MEDS ORDERED: ATROPINE SULFATE 0.1 MG/ML 10ML SYR IV PRN (11:02)
[2022-01-15] MEDS ORDERED: BUPIVACAINE 0.5 % 5 MG/1 ML MPF 30ML VIAL ONE (11:04)
--- NOTE | 2022-01-15 12:10 | Operative Report ---
PG Post Operative Report Pre & Post Diagnosis Sigmoid Diverticular Disease, History of Abscess Same Operation Date: 01/15/22 10:20 <No data on this case meets the specified criteria> I identified the patient and participated in the time-out.: Yes Procedure Cystoscopy with bilateral ureteral catheter placement. Operation Date: 01/15/22 10:20 <No data on this case meets the specified criteria> Surgeon Fei Charles, II, DO Bricklayer Tender None Estimated Blood Loss 1 Findings Consistent with Post-Op Diagnosis Ureteral Catheter/Stents placed in good position bilaterally with good drainage. Specimens None Drains 6 Fr Open Ended catheter bilaterally 16 Fr tinajero Catheter Anesthesia Type General Complications none Disposition Disposition: Recovery Room Indications Patient with significant bowel disease and history of abscess. Plan for stent/catheter placement for drainage of kidneys bilaterally and identification of ureters during complex Colorectal surgery. Risks and benefits discussed at length. Description of Procedure Patient was consented and brought back to the operating room. Patient was placed under anesthesia in the supine position and moved to the dorsal lithotomy position. Patient was prepped and draped in the regular sterile fashion. A time out was completed. A 30degree Cystoscope was placed into the bladder and the entire bladder was examined. The UO's were identified. The Left followed by the Right UO was cannulized with an open ended catheter. This was advanced to the renal pelvis and bilaterally good urine output/drip was appreciated. With the stents/catheters in place, the bladder was emptied. The scope was removed. A 16 Fr Tinajero was placed. The three catheters were then attached to a drainage bag and secured with tape first together and then to the inner thigh. The patient was cleaned and care was transferred to Dr. Russell and the general surgery team in stable condition having tolerated my portion of the procedure well with no complications. I was present and participated in all aspects of this portion of the procedure. Please see Dr. Russells note for the remaining portion of the procedure. Plan to have catheters removed at the end of the case assuming no issues or problems. I attest to the content of the Intraoperative Record and any orders documented therein. Any exceptions are noted below.
[2022-01-15] MEDS ORDERED: ePHEDrine sulfate 50 MG/ML AMP ONE (12:17)
--- NOTE | 2022-01-15 14:31 | Post Operative Brief Note ---
Immediate Post Op Note v1 Date of Surgery January 15, 2022 Pre & Post Diagnosis Operation Date: 01/15/22 10:20 Pre-Op Diagnosis: Diverticulitis of Sigmoid Colon Post-Op Diagnosis: Diverticulitis of Sigmoid Colon I identified the patient and participated in the time-out.: Yes Procedure Operation Date: 01/15/22 10:20 Actual Procedures p Laparoscopic Sigmoidectomy(Not Applicable) - Fei Russell MD s Cystoscopy with bilateral stent insertion(Bilateral) - Fei Charles DO Surgeon Fei Russell MD Polystyrene Bead Molder BRENDA Solis assisted with tissue retraction, camera op, closure Estimated Blood Loss 1 Findings Consistent with Post-Op Diagnosis Persistent abscess with purulent fluid below the peritoneal reflection, unclear whether this represents an abscess with fistulous tract to the lower rectum. Decision was made to proceed with sigmoid resection with end colostomy, Ivory's procedure. The procedure was done completely laparoscopically. Anesthesia Type General
--- NOTE | 2022-01-15 14:45 | Operative Report ---
Post Operative Report Pre & Post Diagnosis Operation Date: 01/15/22 10:20 Pre-Op Diagnosis: Diverticulitis of Sigmoid Colon Post-Op Diagnosis: Diverticulitis of Sigmoid Colon I identified the patient and participated in the time-out.: Yes Procedure Operation Date: 01/15/22 10:20 Actual Procedures p Laparoscopic Sigmoidectomy(Not Applicable) - Fei Russell MD s Cystoscopy with bilateral stent insertion(Bilateral) - Fei Charles DO Surgeon Fei Russell MD Social Science Manager BRENDA Solis assisted with tissue retraction, camera op, closure Estimated Blood Loss 1 Findings Consistent with Post-Op Diagnosis Persistent abscess with purulent fluid was identified during the dissection. Unclear whether this abscess cavity led to a fistulous tract connecting to the lower rectum below the peritoneal reflection. The decision was made to proceed with laparoscopic sigmoidectomy and end colostomy, Ivory's procedure. Specimens Sigmoid colon Drains 19 Citizen [place] round ARNOLDO Anesthesia Type General Complications No immediate complications Description of Procedure The patient was taken to the operating room, placed supine on the operating table. A timeout was performed, perioperative antibiotics were administered, SCD boots were placed. A Patrick catheter was placed as well as bilateral ureteral stents. This was done by Dr. Charles of urology, the details of which are dictated in a separate operative note. Patient was reprepped in lithotomy position, and was prepped and draped in the normal sterile fashion. Incision was made to the right of midline near the umbilicus and was carried down to the level of subcutaneous tissue. The fascia was grasped with a trach hook, and a varies needle was used to enter the abdominal cavity. The abdomen was insufflated to a pressure of 15 mmHg, and a 10 mm trocar was placed in this location. A 10 mm 30 degree laparoscope was placed in the abdominal cavity, and the abdomen was surveyed. No injury noted from entry technique. Two 5 mm trochars were placed, one in the right lower quadrant and 1 in the left upper quadrant. A third 5 mm trocar was placed in the left lower quadrant. The patient was placed in Trendelenburg position and was rolled to the right. We began dissection along the sigmoid colon. The white line of Toldt was mobilized with the harmonic scalpel. This medialized the colon up to the splenic flexure. We then worked our way down along the sigmoid colon, medializing and mobilizing with the harmonic scalpel. Down towards the peritoneal reflection, we encountered significant chronic inflammatory tissue and significant scarring. Dissection continued using careful blunt dissection with the suction senior counsel commercial. The sigmoid colon was densely adherent to the peritoneal reflection. In dissecting free this area, an abscess cavity was identified and entered, and purulent fluid was suctioned free. We were able to free up the rest of the sigmoid colon down to the rectosigmoid junction, which was clear of disease. Given the finding of the persistent abscess cavity with active purulent fluid as well as the possibility from the CT scan of a fistulous tract from this abscess into the lower rectum below the peritoneal reflection, the decision was made to proceed with sigmoid resection and diverting colostomy. It was deemed prudent to avoid reconnection of the bowel in the presence of active infection and abscess with possible fistulous tract. A site was selected on the proximal colon out of the area of diverticular disease. The right lower quadrant port site was upsized to 11 mm port. The proximal colon was then transected with the Endo STEVEN stapler. The harmonic scalpel was used to dissect the sigmoid mesentery down to the rectosigmoid junction. The rectosigmoid junction was cleared of fatty tissue with the harmonic scalpel. Another load of the Endo STEVEN stapler was used to transect the colon in this location. The colon was placed in an Endo Catch bag and removed via the right lower quadrant port site. The site was reclosed, and a 5 mm port was placed back in this location. Attention was turned hemostasis, which was excellent. The peritoneal reflection and pelvis was copiously irrigated and suctioned free. Again hemostasis was excellent. A 19 Citizen [place] round ARNOLDO drain was placed through the left lower quadrant port site and was sewn in place with a nylon suture. A site was selected on the left side at the level of the umbilicus for colostomy placement. An incision was made on the skin and was carried down to the level of the subcutaneous tissue. The fascia was incised in a cruciate incision down into the abdominal cavity. The proximal sigmoid colon was brought out through this incision. It was secured to the fascia with silk suture. All trochars were removed under direct visualization. The fascia in the 12 mm / 11 mm port sites were closed with 0 Vicryl suture. The skin was closed with a running 4-0 Monocryl subcuticular stitch. Dermabond was applied. The colostomy was then matured in a Karen fashion with 3-0 Vicryl sutures. An ostomy appliance was placed. She tolerated the procedure without complication, was transferred in stable condition to the PACU. All instrument, needle, and sponge counts were correct at the end of the case. My family medicine physician assistant was necessary throughout the procedure for tissue retraction, possible camera operation, and closure of the wounds. I understand that section 1842(b)(7)(D) of the Social Security act generally prohibits Medicare physician fee schedule payment for the services of assistants at surgery in teaching hospitals when qualified residents are available to furnish such services. I certify that the services for which payment is claimed were medically necessary and that no qualified resident was available to perform the services. I further understand that these services are subject to postpayment review by the Medicare carrier. I attest to the content of the Intraoperative Record and any orders documented therein. Any exceptions are noted below.
[2022-01-15] MEDS: fentaNYL citrate 100 MCG/2 ML VIAL IV PRN ×4 (15:25→15:50)
[2022-01-15] MEDS: HYDROmorphone INJ 1 MG/ML SYRINGE IV PRN ×2 (16:03→16:15)
--- NOTE | 2022-01-15 16:47 | Anesthesiology Progress Note ---
Date of Service January 15, 2022 Anesthesia Post Procedure Vital Signs Vital Signs: Temp Pulse Resp BP BP Pulse Ox O2 Del Method 01/15/22 16:30 37.0 C 57 L 12 105/72 94 Room Air 01/15/22 16:15 67 14 108/65 93 Room Air 01/15/22 16:05 55 L 12 113/72 95 Room Air 01/15/22 15:17 49 L 15 81/46 L 100 Oxymask 01/15/22 15:40 61 16 113/63 99 Oxymask 01/15/22 15:30 59 L 13 96/53 L 100 Oxymask 01/15/22 15:20 49 L 15 91/53 L 99 Oxymask 01/15/22 15:10 52 L 14 100/55 L 100 Oxymask 01/15/22 15:50 52 L 12 108/62 93 Room Air 01/15/22 15:00 36.3 C L 66 13 110/61 100 Oxymask 01/15/22 09:12 37.0 C 88 18 122/83 98 Room Air O2 Flow Rate 01/15/22 16:30 01/15/22 16:15 01/15/22 16:05 01/15/22 15:17 6 01/15/22 15:40 6 01/15/22 15:30 6 01/15/22 15:20 6 01/15/22 15:10 6 01/15/22 15:50 01/15/22 15:00 6 01/15/22 09:12 Pain Intensity Right Abdomen: Pain Intensity: 3 Transfer of Care Handoff Completed per policy Notes Mental Status: alert / awake / arousable and participated in evaluation Patient Amnestic to Procedure: Yes Nausea / Vomiting: adequately controlled Pain: adequately controlled and improving with treatment Airway Patency, RR, SpO2: stable & adequate BP & HR: stable & adequate and see Notes below Hydration State: stable & adequate Anesthetic Complications: no major complications apparent, see Notes below and Pt Satisfied with anesthetic care Notes: Patient's pain was treated effectively during her PACU stay. Initially upon entering PACU she was mildly hypotensive but this responded to IVF therapy. She has baseline bradycardia and was initially in low 40's on arrival that improved to high 50's (appears to be her baseline) during her stay. Nursing staff noted what appeared to be T wave inversions on monitor ECG strip. I ordered a 12 lead ECG and she did have T wave inversions that were new in V3, V4 and V5 (possibly V6). Patient denied any chest pain/pressure, SOB, jaw/arm pain. Spoke with surgical team and recommended hospitalist consult for further evaluation and treatment. Also suggested med-tele so that she can have continuous ECG monitoring. Electrolytes were ordered (to include mag, phos) to ensure this isn't a cause of her T wave inversions. Will leave to discretion of the hospitalist service whether formal cardiology consult is warranted. Patient is agreeable to plan and feels well enough to be transferred to tele floor/bed. All questions answered.
--- NOTE | 2022-01-15 16:57 | Hospitalist Consultation ---
Date of Consultation January 15, 2022 Assessment & Plan (1) Acute electrocardiogram changes: (2) Diverticulitis: Asya is a 56-year-old female with a past medical history of diverticulitis and kidney stones who presented for lap sigmoidectomy 2/2 diverticulitis of the sigmoid colon. She had a concurrent cystoscopy with bilateral stent insertion for nephrolithiasis 01/15/2022. We have been consulted due to postoperative EKG changes. Intraoperative EKG - Preop EK12/22/21. Sinus bradycardia. QTc 405. Disc T V1-V3, concordant v4- V6. No ST segment changes. - Postop EKG: T wave inversion in V5, V4, V3, equiv V6. QT prolongation 485. No ST segment depression/elevation - No family history of early cardiac disease, no family history of early strokes, no tobacco use, denies history of hypertension/hyperlipidemia Intra-Op received sevo, Versed, fentanyl, propofol, Lidoderm with initial propofol, glycopyrrolate x1, ephedrine x1 Somewhat soft blood pressures at baseline and preop improved with fluid, in PACU 103/64 Hemodynamically stable at bedside, without chest pain or clinical signs of ACS Discussed with cardiology. Overall low risk for coronary disease. Agree with obtaining electrolytes including mag/Phos, follow on telemetry overnight, obtain echo and single troponin. Follow clinically this time. Discussed by phone, if worsening or concerns will place oral consult in a.m. Avoid QT prolonging medications including fluoroquinolones, optimize magnesium to goal 2.0 and potassium goal 4.0. BMP pending Follow on telemetry overnight Diverticulitis with abscess S/p Lap sigmoidectomy w/ Urology assistance for stent/catheter placement for drainage of kidneys bilaterally and identification of ureters during complex Colorectal surgery Pain control, wound management, DVT prophylaxis per primary team (3) Kidney stones: (4) Colonic diverticular abscess: History of Present Illness Attending Physician: Fei Russell MD History of Present Illness Asya is a 56-year-old female with a past medical history of diverticulitis and kidney stones who presented for lap sigmoidectomy 2/2 diverticulitis of the sigmoid colon. We have been consulted due to postoperative EKG changes. Breath seen at the bedside. She is somewhat groggy following anesthesia, and with some postoperative pain in her abdomen. She does answer questions appropriately. She denies any chest pressure, chest pain, lightheadedness, dizziness, shortness of breath, difficulty breathing, presyncope, or shoulder pain. She denies any family history of early cardiac disease or strokes, does note one stroke in her maternal grandmother who was 80 at the time. Patient denies any current or former tobacco use, and reports she has no history of diabetes, hypertension, hyperlipidemia. She did not take any medications this morning other than the ones given and/prescribed by the hospital. Intraoperatively she received sevoflurane, Versed, fentanyl, propofol, 1 dose of lidocaine with initial propofol, glycopyrrolate, and 1 dose of ephedrine. She has a somewhat low heart rate at baseline, but this does come up appropriately with exertion. Initially with some soft pressures preop which improved and is 103/64 postoperatively. She denies recent fever, chills, sweats, or URI symptoms. She endorses a history of kidney stones and diverticulitis, and reports that she was here for colon resection with concurrent neurologic stent placement for kidney stones. Preop EK12/22/21. Sinus bradycardia. QTc 405. Disc T V1-V3, concordant v4- V6. No ST segment changes. Postop EKG: T wave inversion in V5, V4, V3, equiv V6. QT prolongation 485. No ST segment depression/elevation Anesthesia review: Received CVL, Versed, fentanyl, propofol, Lidoderm with initial propofol, glycopyrrolate x1, ephedrine x1 Medical History: Reviewed Medications: Reviewed Surgical History: Reviewed Allergies: Reviewed Social History: No tobacco use Code Status: Full code Allergies Allergy/AdvReac Type Severity Reaction Status Date / Time No Known Allergies Allergy Unknown Verified 01/15/22 09:04 Home Medications Medication Instructions Recorded Confirmed Type docusate sodium 100 mg capsule 100 mg PO QPM 05/22/21 01/15/22 History (Stool Softener) acetaminophen 325 mg tablet 325 mg PO DAILY PRN Headache 01/08/22 01/15/22 History ascorbic acid 1,000 1 ea PO QAM 01/08/22 01/15/22 History fq-[id number]-qwpzkqts powder effervescent pack (Emergen-C) multivitamin 1 tab PO QAM 01/08/22 01/15/22 History metronidazole 500 mg tablet 500 mg PO ONCE 01/15/22 01/15/22 History neomycin 500 mg tablet 500 mg PO ONCE 01/15/22 01/15/22 History Patient History Medical History Diverticular disease Kidney stones hx of Lower abdominal pain Surgical History History of colonoscopy History of lithotripsy History of tooth extraction History of wisdom tooth extraction Family History Other No family history of adverse response to anesthesia Social History Smoking Status: Never smoker Second Hand Exposure: No; Do You Dip or Chew Tobacco: No; Tobacco Cessation Education Requested by Patient: No Hx Alcohol Use: Yes Alcohol type: wine Hx Substance Use: No Preferred Language: Occitan Communication Ability: Effective 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 NAD. Cooperative. Somnolent, but awakens easily in PACU. Nontoxic-appearing HEENT: Atraumatic, normocephalic. Pulm: CTAB A&P. -wheezes, -rales, -rhonchi. Symmetrical chest rise. No increase in work of breathing. No respiratory distress. Cardiac: RRR, -mrg. Radial pulses intact and symmetrical. Abdominal: Postop dressing intact, C/C/I with drain in place draining sanguinous/serosanguineous material. 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 Radial and PT pulses intact to palpation bilaterally, no pitting edema Results & Data Results & Data ([facility]) Vital Signs (Past 12 Hours) Vital Signs Temp Pulse Resp BP BP Pulse Ox O2 Del Method 01/15/22 16:30 37.0 C 57 L 12 105/72 94 Room Air 01/15/22 16:15 67 14 108/65 93 Room Air 01/15/22 16:05 55 L 12 113/72 95 Room Air 01/15/22 15:17 49 L 15 81/46 L 100 Oxymask 01/15/22 15:40 61 16 113/63 99 Oxymask 01/15/22 15:30 59 L 13 96/53 L 100 Oxymask 01/15/22 15:20 49 L 15 91/53 L 99 Oxymask 01/15/22 15:10 52 L 14 100/55 L 100 Oxymask 01/15/22 15:50 52 L 12 108/62 93 Room Air 01/15/22 15:00 36.3 C L 66 13 110/61 100 Oxymask 01/15/22 09:12 37.0 C 88 18 122/83 98 Room Air O2 Flow Rate 01/15/22 16:30 01/15/22 16:15 01/15/22 16:05 01/15/22 15:17 6 01/15/22 15:40 6 01/15/22 15:30 6 01/15/22 15:20 6 01/15/22 15:10 6 01/15/22 15:50 01/15/22 15:00 6 01/15/22 09:12 PG Care Time/CCT Total # of Minutes Spent Total Time Spent with Patient: Total time spent is greater than 50% in coordination of care (as documented) at patient's floor/unit and/or counseling patient: Coding Level of Care Code 66019 Inpt Consult Level 4 Diagnoses Acute electrocardiogram changes R94.31 Diverticulitis K57.92 Kidney stones N20.0 Colonic diverticular abscess K57.20
[2022-01-15] MEDS ORDERED: ACETAMINOPHEN 1000 MG/100 ML IV IV ONE (17:12)
[2022-01-15] MEDS: ACETAMINOPHEN 1,000 MG/100 ML VIAL IV PRN (17:13)
[2022-01-15 17:20] LABS: Calcium 8.2 mg/dl (8.5-10.1); Creatinine Clr Calc Pharmacy 87.5 ml/min; Est GFR (African American) 125.4 ml/min; Est GFR (Non-African American) 108.2 ml/min; Magnesium 1.7 mg/dl (1.7-2.4); Phosphorus 3.2 mg/dl (2.5-4.9); Potassium 3.4 mmol/L (3.5-5.1)
[2022-01-15] MEDS ORDERED: MoRPHine SULFATE 2 MG/ML CARP IV PRN (18:16)
[2022-01-15] MEDS ORDERED: PIPERACILLIN/TAZOBACTAM 4.5 GM in DEXTROSE 5% 100 ML IV ONE (18:45)
[2022-01-15] MEDS: KETOROLAC TROMETHAMINE 15 MG/ML VIAL IM PRN (18:49)
[2022-01-15] MEDS: LACTATED RINGER'S 1,000 ML IV SCH (19:22)
--- NOTE | 2022-01-15 19:31 | Electrocardiogram Report ---
Test Reason : Blood Pressure : / mmHG Vent. Rate : 050 BPM Atrial Rate : 050 BPM P-R Int : 186 ms QRS Dur : 090 ms QT Int : 532 ms P-R-T Axes : 073 090 107 degrees QTc Int : 485 ms Sinus bradycardia Rightward axis Prolonged QT Abnormal ECG When compared with ECG of 27-MAY-2013 19:16, ST now depressed in Anterior leads T wave inversion now evident in Anterolateral leads Confirmed by Joselo Baker ([id number]) on 01/15/2022 7:31:24 PM Referred By: Fei Russell Confirmed By:Sonny Baker
[2022-01-15] MEDS: oxyCODONE/ACETAMINOPHEN 5mg/325mg TAB PO PRN (21:11)
[2022-01-16] MEDS: PIPERACILLIN/TAZOBACTAM 3.375 GM in DEXTROSE 5% 100 ML IV SCH ×3 (00:12→17:57)
[2022-01-16] MEDS: oxyCODONE/ACETAMINOPHEN 5mg/325mg TAB PO PRN ×2 (05:09→21:27)
[2022-01-16] MEDS: ENOXAPARIN INJ 40 MG/0.4 ML SYR SQ SCH (06:22)
[2022-01-16] MEDS: ACETAMINOPHEN 1,000 MG/100 ML VIAL IV PRN (06:23)
--- NOTE | 2022-01-16 07:33 | Surgery Progress Note ---
Date of Service January 16, 2022 Assessment & Plan (1) Colonic diverticular abscess: Plan: POD#1 s/p laparoscopic sigmoidectomy with end colostomy for diverticular abscess doing well pain control with IV Tylenol, Toradol, morphine, Percocet encourage out of bed and ambulation; incentive spirometry DVT prophylaxis with SCDs and Lovenox clear liquid diet Admission and Anticipated Discharge Date Admission Date: January 15, 2022 Subjective POD#1 Status post laparoscopic sigmoidectomy with end colostomy due to active abscess from diverticulitis. Some pain in the right lower quadrant today denies nausea vomiting no fevers overnight Physical Exam Physical Exam: no acute distress, alert and oriented x3 abdomen: Soft, mild TTP in RLQ; incisions without erythema or discharge; Dermabond in place ostomy pink and viable ARNOLDO drain with small serosanguineous output Results & Data ([facility]) Vital Signs (Past 12 Hours) Vital Signs Temp Pulse Pulse Pulse Resp BP Pulse Ox 01/16/22 07:06 60 01/16/22 05:26 36.6 C 59 L 18 107/66 97 01/15/22 22:14 63 01/16/22 00:46 36.9 C 60 18 106/65 95 01/15/22 23:00 36.8 C 60 20 94/56 L 96 01/15/22 22:18 36.8 C 61 18 95/61 L 96 01/15/22 21:00 36.8 C 59 L 18 98/60 L 96 01/15/22 22:00 36.5 C 61 18 95/60 L 96 01/15/22 22:18 60 01/15/22 20:46 37.0 C 78 18 126/78 96 O2 Del Method 01/16/22 07:06 01/16/22 05:26 Room Air 01/15/22 22:14 01/16/22 00:46 Room Air 01/15/22 23:00 Room Air 01/15/22 22:18 Room Air 01/15/22 21:00 Room Air 01/15/22 22:00 Room Air 01/15/22 22:18 01/15/22 20:46 Room Air Laboratory Results 01/15/22 01/15/22 01/15/22 Range/Units 16:27 16:27 09:12 Sodium 137 (136-145) mmol/L Potassium 3.4 L (3.5-5.1) mmol/L Chloride 105 (98-107) mmol/L Carbon Dioxide 25 (21-32) mmol/L Anion Gap 7 (3-11) BUN 10 (6-23) mg/dl Creatinine 0.50 L (0.6-1.2) mg/dl Est Cr Clr Drug Dosing 87.5 ml/min Est GFR ( Amer) 125.4 ml/min Est GFR (Non-Af Amer) 108.2 ml/min BUN/Creatinine Ratio 20.0 (10-20) Glucose 170 H (70-99(Fasting)) mg/dl Calcium 8.2 L (8.5-10.1) mg/dl Phosphorus 3.2 (2.5-4.9) mg/dl Magnesium 1.7 (1.7-2.4) mg/dl Troponin I High Sens < 2.3 (0-14) pg/ml SARS-CoV-2, RNA, NAAT (NEGATIVE) Blood Type AB Negative Antibody Screen NEGATIVE 01/15/22 Range/Units 09:00 Sodium (136-145) mmol/L Potassium (3.5-5.1) mmol/L Chloride (98-107) mmol/L Carbon Dioxide (21-32) mmol/L Anion Gap (3-11) BUN (6-23) mg/dl Creatinine (0.6-1.2) mg/dl Est Cr Clr Drug Dosing ml/min Est GFR ( Amer) ml/min Est GFR (Non-Af Amer) ml/min BUN/Creatinine Ratio (10-20) Glucose (70-99(Fasting)) mg/dl Calcium (8.5-10.1) mg/dl Phosphorus (2.5-4.9) mg/dl Magnesium (1.7-2.4) mg/dl Troponin I High Sens (0-14) pg/ml SARS-CoV-2, RNA, NAAT NEGATIVE (NEGATIVE) Blood Type Antibody Screen
[2022-01-16 08:02] LABS: Basophils # (auto) 0.03 K/uL (0-0.2); Basophils % (auto) 0.3 %; Eosinophils # (auto) 0.01 K/uL (0-0.50); Eosinophils % (auto) 0.1 %; Hematocrit (blood only) 37.3 % (34.1-44.9); Hemoglobin 12.6 g/dl (12.0-16.0); Immature Granulocytes # (auto) 0.03 K/uL (0.00-0.02); Immature Granulocytes % (auto) 0.3 %; Lymphocytes # (auto) 1.23 K/uL (1.2-3.4); Lymphocytes % (auto) 11.1 %; Mean Corpuscular Hemoglobin 31.5 pg (25.0-34.0); Mean Corpuscular Hgb Conc 33.8 g/dL (32.0-36.0); Mean Corpuscular Volume 93.3 fL (80.0-100.0); Mean Platelet Volume 9.4 fL (9.4-12.3); Monocytes # (auto) 1.06 K/uL (0.24-0.82); Monocytes % (auto) 9.6 %; Neutrophils # (auto) 8.69 K/uL (1.4-6.5); Neutrophils % (auto) 78.6 %; Platelet Count 185 K/uL (130-400); RDW Standard Deviation 45.1 fL (36.4-46.3); White Blood Count 11.05 K/ul (4.8-10.8)
[2022-01-16] MEDS: KETOROLAC TROMETHAMINE 15 MG/ML VIAL IM PRN ×2 (08:38→14:14)
--- NOTE | 2022-01-16 10:37 | XCELERA ---
[id number]
[2022-01-16] MEDS: ACETAMINOPHEN 325 MG TAB PO PRN ×3 (12:18→20:27)
--- NOTE | 2022-01-16 20:26 | Hospitalist Progress Note ---
Date of Service January 16, 2022 Assessment & Plan (1) Acute electrocardiogram changes: Plan: No risk factors for coronary artery disease. 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 She had a concurrent cystoscopy with bilateral stent insertion for nephrolithiasis 01/15/2022. We have been consulted due to postoperative EKG changes. TTE normal EF 55%, diastolic function also normal, IVC was slightly dilated, History before I saw the patient today: intraoperative EKG - Preop EK12/22/21. Sinus bradycardia. QTc 405. Disc T V1-V3, concordant v4- V6. No ST segment changes. - Postop EKG: T wave inversion in V5, V4, V3, equiv V6. QT prolongation 485. No ST segment depression/elevation - No family history of early cardiac disease, no family history of early strokes, no tobacco use, denies history of hypertension/hyperlipidemia Intra-Op received sevo, Versed, fentanyl, propofol, Lidoderm with initial propofol, glycopyrrolate x1, ephedrine x1 Somewhat soft blood pressures at baseline and preop improved with fluid, in PACU 103/64 Hemodynamically stable at bedside, without chest pain or clinical signs of ACS Discussed with cardiology. Overall low risk for coronary disease. Agree with obtaining electrolytes including mag/Phos, follow on telemetry overnight, obtain echo and single troponin. Follow clinically this time. Discussed by phone, if worsening or concerns will place oral consult in a.m. Diverticulitis with abscess S/p Lap sigmoidectomy w/ Urology assistance for stent/catheter placement for drainage of kidneys bilaterally and identification of ureters during complex Colorectal surgery Pain control, wound management, DVT prophylaxis per primary team (3) Kidney stones: (4) Colonic diverticular abscess: Plan The patient needs to get a PCP if she does not have one. I do not see one in the EMR that we have access to. Will inquire from patient in the morning Admission and Anticipated Discharge Date Admission Date: January 15, 2022 Subjective Patient was seen around 9:45 AM today. She was sitting up in bed. She was in some some abdominal pain. No urinary symptoms. No vomiting or nausea and diet had not fully been advanced yet. Through the day I was asked by nursing about her pain medications-she wanted oral Tylenol and was declining morphine despite abdominal cramps. 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 Results & Data Results & Data ([facility]) Vital Signs (Past 12 Hours) Vital Signs Temp Pulse Pulse Resp BP BP Pulse Ox 01/16/22 15:00 55 L 01/16/22 15:01 37.1 C 63 18 105/64 98 01/16/22 11:31 36.9 C 57 L 16 107/62 99 O2 Del Method 01/16/22 15:00 01/16/22 15:01 Room Air 01/16/22 11:31 Room Air Laboratory Results Abnormal lab results 01/16/22 Range/Units 07:50 WBC 11.05 H (4.8-10.8) K/ul Neut # (Auto) 8.69 H (1.4-6.5) K/uL King # (Auto) 1.06 H (0.24-0.82) K/uL Immature Gran # (Auto) 0.03 H (0.00-0.02) K/uL PG Care Time/CCT Total # of Minutes Spent Total Time Spent with Patient: Total time spent is greater than 50% in coordination of care (as documented) at patient's floor/unit and/or counseling patient: Coding Level of Care Code 75195 Subseq Hosp Care Lvl 2 Diagnoses Acute electrocardiogram changes R94.31 Diverticulitis K57.92 Kidney stones N20.0 Colonic diverticular abscess K57.20
[2022-01-16] MEDS: KETOROLAC TROMETHAMINE 15 MG/ML VIAL IV PRN (20:27)
[2022-01-16] MEDS: LACTATED RINGER'S 1,000 ML IV SCH (20:28)
[2022-01-17] MEDS: PIPERACILLIN/TAZOBACTAM 3.375 GM in DEXTROSE 5% 100 ML IV SCH ×3 (01:52→17:36)
[2022-01-17] MEDS: ACETAMINOPHEN 325 MG TAB PO PRN ×2 (01:52→18:22)
[2022-01-17] MEDS: oxyCODONE/ACETAMINOPHEN 5mg/325mg TAB PO PRN ×4 (01:58→20:22)
[2022-01-17] MEDS: ENOXAPARIN INJ 40 MG/0.4 ML SYR SQ SCH (06:23)
[2022-01-17] MEDS: KETOROLAC TROMETHAMINE 15 MG/ML VIAL IV PRN ×2 (06:24→12:48)
[2022-01-17 10:09] LABS: Basophils # (auto) 0.05 K/uL (0-0.2); Basophils % (auto) 0.8 %; Eosinophils # (auto) 0.05 K/uL (0-0.50); Eosinophils % (auto) 0.8 %; Hematocrit (blood only) 37.1 % (34.1-44.9); Hemoglobin 12.4 g/dl (12.0-16.0); Immature Granulocytes # (auto) 0.02 K/uL (0.00-0.02); Immature Granulocytes % (auto) 0.3 %; Lymphocytes # (auto) 1.06 K/uL (1.2-3.4); Lymphocytes % (auto) 16.8 %; Mean Corpuscular Hemoglobin 31.6 pg (25.0-34.0); Mean Corpuscular Hgb Conc 33.4 g/dL (32.0-36.0); Mean Corpuscular Volume 94.6 fL (80.0-100.0); Mean Platelet Volume 9.8 fL (9.4-12.3); Monocytes # (auto) 0.56 K/uL (0.24-0.82); Monocytes % (auto) 8.9 %; Neutrophils # (auto) 4.57 K/uL (1.4-6.5); Neutrophils % (auto) 72.4 %; Platelet Count 179 K/uL (130-400); RDW Coefficient of Variation 13.2 % (11.5-14.5); RDW Standard Deviation 46.2 fL (36.4-46.3); Red Blood Count 3.92 M/uL (3.93-5.22); White Blood Count 6.31 K/ul (4.8-10.8)
--- NOTE | 2022-01-17 10:09 | Surgery Progress Note ---
Date of Service January 17, 2022 Assessment & Plan (1) Colonic diverticular abscess: Plan: POD#2 s/p laparoscopic sigmoidectomy with end colostomy for diverticular abscess Doing well Encouraged her to use the Percocet as needed Encourage out of bed and ambulation; incentive spirometry DVT prophylaxis with SCDs and Lovenox Will advance to full liquid diet Admission and Anticipated Discharge Date Admission Date: January 15, 2022 Subjective feeling somewhat better this morning, still abdominal cramping and pain in the right lower quadrant. She has been refusing morphine and other opioids due to concerns about potential addiction. she denies nausea, vomiting, fevers. Physical Exam Physical Exam: AFVSS no acute distress, alert and oriented x3 abdomen: Soft, mild TTP in RLQ; incisions without erythema or discharge; Dermabond in place ostomy pink and viable ; air in bag ARNOLDO drain with small serosanguineous output Results & Data ([facility]) Vital Signs (Past 12 Hours) Vital Signs Temp Pulse Resp BP Pulse Ox O2 Del Method 01/17/22 07:47 36.7 C 51 L 18 118/65 93 Room Air 01/17/22 04:00 37.1 C 55 L 18 109/62 96 Room Air 01/16/22 23:15 37.1 C 64 19 124/76 96 Room Air Laboratory Results 01/17/22 01/17/22 Range/Units 09:42 09:42 WBC Pending RBC Pending Hgb Pending Hct Pending MCV Pending MCH Pending MCHC Pending Plt Count Pending Sodium Pending Potassium Pending Chloride Pending Carbon Dioxide Pending Anion Gap Pending BUN Pending Creatinine Pending Est Cr Clr Drug Dosing Pending Est GFR ( Amer) Pending Est GFR (Non-Af Amer) Pending BUN/Creatinine Ratio Pending Glucose Pending Calcium Pending
[2022-01-17 10:33] LABS: BUN Creatinine Ratio 15.7 (10-20); Calcium 8.2 mg/dl (8.5-10.1); Est GFR (African American) 124.6 ml/min; Est GFR (Non-African American) 107.5 ml/min; Potassium 3.5 mmol/L (3.5-5.1)
--- NOTE | 2022-01-17 17:34 | Hospitalist Progress Note ---
Date of Service January 17, 2022 Assessment & Plan (1) Acute electrocardiogram changes: Plan: Were seen after her colectomy 2 days ago, T wave inversions in V1 to V4 no risk factors for coronary artery disease. 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 No symptoms of angina or history of coronary artery disease. The patient needs close follow-up with PCP at discharge. I have explained at length to the patient 01/17 that primary care means health maintenance and regular visits with the PCP not as needed. I have stopped telemetry today01/17 (2) Diverticulitis: Plan: Asya is a 56-year-old female with a past medical history of diverticulitis and kidney stones who presented for lap sigmoidectomy 2/2 diverticulitis of the sigmoid colon. She had a concurrent cystoscopy with bilateral stent insertion for nephrolithiasis 01/15/2022. Int medicine were consulted due to posto perative EKG changes 01/15. TTE normal EF 55%, diastolic function also normal, IVC was slightly dilated, History before I saw the patient today: intraoperative EKG - Preop EK12/22/21. Sinus bradycardia. QTc 405. Disc T V1-V3, concordant v4- V6. No ST segment changes. - Postop EKG: T wave inversion in V5, V4, V3, equiv V6. QT prolongation 485. No ST segment depression/elevation - No family history of early cardiac disease, no family history of early strokes, no tobacco use, denies history of hypertension/hyperlipidemia Intra-Op received sevo, Versed, fentanyl, propofol, Lidoderm with initial propofol, glycopyrrolate x1, ephedrine x1 Somewhat soft blood pressures at baseline and preop improved with fluid, in PACU 103/64 Hemodynamically stable at bedside, without chest pain or clinical signs of ACS Discussed with cardiology. Overall low risk for coronary disease. Agree with obtaining electrolytes including mag/Phos, follow on telemetry overnight, obtain echo and single troponin. Follow clinically this time. Discussed by phone, if worsening or concerns will place oral consult in a.m. Diverticulitis with abscess S/p Lap sigmoidectomy w/ Urology assistance for stent/catheter placement for drainage of kidneys bilaterally and identification of ureters during complex Colorectal surgery Pain control, wound management, DVT prophylaxis per primary team (3) Kidney stones: Plan: Reassured about hematuria today. Urology have not seen her post stent removal. (4) Colonic diverticular abscess: Plan: Now with colostomy Plan Keep advancing diet per surgery. We are on consult. Admission and Anticipated Discharge Date Admission Date: January 15, 2022 Subjective seen at 1130 am Anxious about blood noticed when he urinated this morning. Did not have it yesterday. Occasional abdominal pain and uses Percocet. Full liquid diet now. No nausea or vomiting. No diarrhea No chest pain/shortness of breath Reports 20 pound weight loss since May and first diagnosed with diverticulitis. Denies depressed mood or crying spells. No dysuria. [facility] Last saw her some weeks ago. 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 Results & Data Results & Data ([facility]) Vital Signs (Past 12 Hours) Vital Signs Temp Pulse Pulse Resp BP Pulse Ox O2 Del Method 01/17/22 11:22 36.9 C 72 18 106/64 97 Room Air 01/17/22 08:00 56 L 01/17/22 07:47 36.7 C 51 L 18 118/65 93 Room Air 01/17/22 04:00 37.1 C 55 L 18 109/62 96 Room Air Laboratory Results Abnormal lab results 01/17/22 01/17/22 Range/Units 09:42 09:42 RBC 3.92 L (3.93-5.22) M/uL Lymph # (Auto) 1.06 L (1.2-3.4) K/uL Chloride 108 H (98-107) mmol/L Creatinine 0.51 L (0.6-1.2) mg/dl Glucose 129 H (70-99(Fasting)) mg/dl Calcium 8.2 L (8.5-10.1) mg/dl PG Care Time/CCT Total # of Minutes Spent Total Time Spent with Patient: Total time spent is greater than 50% in coordination of care (as documented) at patient's floor/unit and/or counseling patient: Coding Level of Care Code 06984 Subseq Hosp Care Lvl 3 Diagnoses Acute electrocardiogram changes R94.31 Diverticulitis K57.92 Kidney stones N20.0 Colonic diverticular abscess K57.20
--- NOTE | 2022-01-17 19:42 | Electrocardiogram Report ---
Test Reason : Blood Pressure : / mmHG Vent. Rate : 054 BPM Atrial Rate : 054 BPM P-R Int : 176 ms QRS Dur : 086 ms QT Int : 420 ms P-R-T Axes : 040 078 092 degrees QTc Int : 398 ms Sinus bradycardia Septal infarct , age undetermined Abnormal ECG When compared with ECG of 15-JAN-2022 15:40, T wave inversion no longer evident in Anterolateral leads QT has shortened Confirmed by Joselo Baker ([id number]) on 01/17/2022 7:41:58 PM Referred By: Fei Russell Confirmed By:Sonny Baker
[2022-01-18] MEDS: oxyCODONE/ACETAMINOPHEN 5mg/325mg TAB PO PRN ×4 (00:51→19:46)
[2022-01-18] MEDS: PIPERACILLIN/TAZOBACTAM 3.375 GM in DEXTROSE 5% 100 ML IV SCH ×3 (00:56→17:41)
[2022-01-18] MEDS ORDERED: KETOROLAC TROMETHAMINE 15 MG/ML VIAL IV ONE (01:26)
[2022-01-18] MEDS: ENOXAPARIN INJ 40 MG/0.4 ML SYR SQ SCH (05:52)
--- NOTE | 2022-01-18 08:05 | Hospitalist Progress Note ---
Date of Service January 18, 2022 Assessment & Plan (1) Acute electrocardiogram changes: Plan: Asya is a 56-year-old female with a past medical history of diverticulitis and kidney stones who presented for lap sigmoidectomy 2/2 diverticulitis of the sigmoid colon. She had a concurrent cystoscopy with bilateral stent insertion for nephrolithiasis 01/15/2022. Int medicine was consulted due to postoperative EKG changes 01/15. TTE normal EF 55%, diastolic function also normal, IVC was slightly dilated, intraoperative EKG - Preop EK12/22/21. Sinus bradycardia. QTc 405. Disc T V1-V3, concordant v4- V6. No ST segment changes. - Postop EKG: T wave inversion in V5, V4, V3, equiv V6. QT prolongation 485. No ST segment depression/elevation - No family history of early cardiac disease, no family history of early strokes, no tobacco use, denies history of hypertension/hyperlipidemia Intra-Op received sevo, Versed, fentanyl, propofol, Lidoderm with initial propofol, glycopyrrolate x1, ephedrine x1 Somewhat soft blood pressures at baseline and preop improved with fluid, in PACU 103/64 Hemodynamically stable at bedside, without chest pain or clinical signs of ACS Discussion with cardiology - Overall low risk for coronary disease. Agree with obtaining electrolytes including mag/Phos, follow on telemetry overnight, obtain echo and single troponin. Follow clinically this time. Discussed by phone, if worsening or concerns will place oral consult in a.m. Seen after her colectomy 2 days ago, T wave inversions in V1 to V4 no risk factors for coronary artery disease. 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 No symptoms of angina or history of coronary artery disease. The patient needs close follow-up with PCP at discharge. Again explained to patient at length that primary care means health maintenance and regular visits with the PCP, not just as needed. Telemetry stopped 01/17 Still with no chest pain or SOB (2) Diverticulitis: Plan: Diverticulitis with abscess S/p Lap sigmoidectomy with end colostomy and with Urology assistance for stent/catheter placement for drainage of kidneys bilaterally and identification of ureters during complex Colorectal surgery Pain control, wound management, DVT prophylaxis per primary team (3) Kidney stones: Plan: Reassured about hematuria today. Urology have not seen her post stent removal. Will get U/A and C&S (patient was concerned and worried about a UTI) Gave on dose of Pyridium after U/A was collected (4) Colonic diverticular abscess: Plan: Now with colostomy Wound and Ostomy to evaluate later today Surgical drain per surgery Plan Patient discussed with Dr Duval who assisted in the management of this patient Keep advancing diet per surgery. We are on consult. Advised needs protein to help in the healing process Discussed need to follow up with PCP upon discharge Will await urinalysis and C&S Wound and Ostomy to evaluate and educate patient later today Admission and Anticipated Discharge Date Admission Date: January 15, 2022 Subjective Patient seen this AM on rounds. She was awake in bed and states she is feeling "okay" She admits to feeling better today than yesterday. She states she still has some mild lower abdominal discomfort but improved from yesterday. Per nursing she has not yet emptied her ostomy on her own. She tells me that she is overwhelmed by the ostomy. She denies any nausea, vomiting, chest pain or SOB. She states she has some blood in her urine and mild dysuria. She denies any back or flank pain. She denies any chest pain, SOB or dyspnea. Review of Systems Constitutional: + anorexia; no fever and no chills Eyes: no blind spots, no diplopia and no spots in vision Ear, Nose, Mouth, Throat: no nasal congestion, no post nasal drip and no sinus pain/pressure Respiratory: no cough, no chest congestion and no dyspnea Cardiovascular: no chest pain, no dyspnea, no syncope and no edema Gastrointestinal: + diarrhea/loose stools; no nausea and no vomiting Genitourinary: + dysuria and + hematuria; no urinary hesitancy and no flank pain Integumentary: + wounds; no rash Psychiatric: + change in appetite and + anxiety; no irritability and no suicidal ideation Physical Exam Constitutional: WD/WN, vitals as above ENMT: external ear and nose normal, oropharynx normal Neck: trachea midline, no thyromegaly Respiratory: normal respiratory effort, lungs clear to auscultation Cardiovascular: RRR, no murmur, no edema Gastrointestinal (Abdomen): Inspection/Auscultation: normal bowel sounds and + abdominal surgical drain present ostomy LLQ with liquid brown stool in ostomy Skin: no rashes, warm and dry Psychiatric: A+Ox3, euthymic affect Patient states she is overwhelmed with her ostomy and is anxious about caring for the ostomy. Wound/Ostomy team to meet with patient today Results & Data Results & Data ([facility]) Vital Signs (Past 12 Hours) Vital Signs O2 Del Method 01/18/22 02:00 Room Air Laboratory Results Abnormal lab results 01/18/22 Range/Units 12:05 Urine Protein 1+ H (Negative) Urine Ketones Trace H (Negative) Urine Blood 3+ H (Negative) Ur Leukocyte Esterase Trace H (Negative) Urine RBC (Auto) >30 H (0-4) /hpf U Epithel Cells (Auto) 5-10 H (0-5) /lpf PG Care Time/CCT Total # of Minutes Spent Total Time Spent with Patient: Total time spent is greater than 50% in coordination of care (as documented) at patient's floor/unit and/or counseling patient: Coding [place] [address] Subseq Hosp Care Lvl 3 Patient Type Established History Detailed Exam Detailed Medical Decision Making Moderate Complexity Diagnoses Acute electrocardiogram changes R94.31 Diverticulitis K57.92 Kidney stones N20.0 Colonic diverticular abscess K57.20 Time Spent (min) 30
[2022-01-18] MEDS: ACETAMINOPHEN 325 MG TAB PO PRN ×3 (08:39→19:46)
--- NOTE | 2022-01-18 08:47 | Surgery Progress Note ---
Date of Service January 18, 2022 Assessment & Plan (1) Colonic diverticular abscess: Plan: POD#3 s/p laparoscopic sigmoidectomy with end colostomy for diverticular abscess Doing well Encouraged her to use the Percocet as needed Encourage out of bed and ambulation; incentive spirometry DVT prophylaxis with SCDs and Lovenox advanced to regular diet ostomy teaching by wound care nurse today possible discharge to home this afternoon or tomorrow morning Admission and Anticipated Discharge Date Admission Date: January 15, 2022 Subjective Doing fairly well this morning. Pain is under better control. No nausea or vomiting. No fevers or chills. Physical Exam Physical Exam: AFVSS no acute distress, alert and oriented x3 abdomen: Soft, mild TTP in RLQ; incisions without erythema or discharge; Dermabond in place ostomy pink and viable ; air and stool in bag ARNOLDO drain with small serosanguineous output Results & Data ([facility]) Vital Signs (Past 12 Hours) Vital Signs O2 Del Method 01/18/22 02:00 Room Air Laboratory Results 01/17/22 01/17/22 Range/Units 09:42 09:42 WBC 6.31 (4.8-10.8) K/ul RBC 3.92 L (3.93-5.22) M/uL Hgb 12.4 (12.0-16.0) g/dl Hct 37.1 (34.1-44.9) % MCV 94.6 (80.0-100.0) fL MCH 31.6 (25.0-34.0) pg MCHC 33.4 (32.0-36.0) g/dL RDW Std Deviation 46.2 (36.4-46.3) fL RDW Coeff of Gris 13.2 (11.5-14.5) % Plt Count 179 (130-400) K/uL MPV 9.8 (9.4-12.3) fL Immature Gran % (Auto) 0.3 % Neut % (Auto) 72.4 % Lymph % (Auto) 16.8 % Cass % (Auto) 8.9 % Eos % (Auto) 0.8 % Baso % (Auto) 0.8 % Neut # (Auto) 4.57 (1.4-6.5) K/uL Lymph # (Auto) 1.06 L (1.2-3.4) K/uL Cass # (Auto) 0.56 (0.24-0.82) K/uL Eos # (Auto) 0.05 (0-0.50) K/uL Baso # (Auto) 0.05 (0-0.2) K/uL Immature Gran # (Auto) 0.02 (0.00-0.02) K/uL Sodium 139 (136-145) mmol/L Potassium 3.5 (3.5-5.1) mmol/L Chloride 108 H (98-107) mmol/L Carbon Dioxide 26 (21-32) mmol/L Anion Gap 5 (3-11) BUN 8 (6-23) mg/dl Creatinine 0.51 L (0.6-1.2) mg/dl Est Cr Clr Drug Dosing 85.0 ml/min Est GFR ( Amer) 124.6 ml/min Est GFR (Non-Af Amer) 107.5 ml/min BUN/Creatinine Ratio 15.7 (10-20) Glucose 129 H (70-99(Fasting)) mg/dl Calcium 8.2 L (8.5-10.1) mg/dl
[2022-01-18 12:21] LABS: Appearance Urine Clear (Clear); Bacteria Urine Automated Negative (Negative); Bilirubin Urine Negative (Negative); Blood Urine 3+ (Negative); Color Urine Red; Glucose Urine UA Negative (Negative); Ketones Urine Trace (Negative); Leukocyte Esterase Urine Trace (Negative); Nitrite Urine Negative (Negative); Protein Urine 1+ (Negative); RBC Urine Automated >30 /hpf (0-4); Specific Gravity Urine 1.007 (1.000-1.030); Urobilinogen Urine Negative (Negative)
[2022-01-18] MEDS ORDERED: PHENAZOPYRIDINE HCL 200 MG TAB PO STA (14:36)
[2022-01-19] MEDS: PIPERACILLIN/TAZOBACTAM 3.375 GM in DEXTROSE 5% 100 ML IV SCH ×2 (00:51→08:06)
[2022-01-19] MEDS: ACETAMINOPHEN 325 MG TAB PO PRN ×2 (03:15→08:41)
[2022-01-19] MEDS: oxyCODONE/ACETAMINOPHEN 5mg/325mg TAB PO PRN ×2 (05:00→10:42)
[2022-01-19] MEDS: ENOXAPARIN INJ 40 MG/0.4 ML SYR SQ SCH (06:03)
--- NOTE | 2022-01-19 09:27 | Surgery Progress Note ---
Date of Service January 19, 2022 Assessment & Plan (1) Colonic diverticular abscess: Plan: POD#4 s/p laparoscopic sigmoidectomy with end colostomy for diverticular abscess Doing well Encouraged her to use the Percocet as needed Encourage out of bed and ambulation; incentive spirometry DVT prophylaxis with SCDs and Lovenox Tolerating regular diet remove ARNOLDO drain discharge to home today Admission and Anticipated Discharge Date Admission Date: January 15, 2022 Subjective doing well this morning. Tolerating diet. No fevers or chills. No nausea vomiting. Ostomy working. Physical Exam Physical Exam: AFVSS no acute distress, alert and oriented x3 abdomen: Soft, mild TTP in RLQ; incisions without erythema or discharge; Dermabond in place ostomy pink and viable ; air and stool in bag ARNOLDO drain with small serosanguineous output Results & Data ([facility]) Vital Signs (Past 12 Hours) Vital Signs Temp Pulse Resp BP Pulse Ox O2 Del Method 01/19/22 06:45 36.9 C 93 H 18 109/67 96 Room Air 01/18/22 23:29 37.0 C 66 16 117/75 94 Room Air
--- NOTE | 2022-01-19 11:13 | Hospitalist Progress Note ---
Date of Service January 19, 2022 Assessment & Plan (1) Acute electrocardiogram changes: Plan: Asya is a 56-year-old female with a past medical history of diverticulitis and kidney stones who presented for lap sigmoidectomy 2/2 diverticulitis of the sigmoid colon. She had a concurrent cystoscopy with bilateral stent insertion for nephrolithiasis 01/15/2022. Int medicine was consulted due to postoperative EKG changes 01/15. TTE normal EF 55%, diastolic function also normal, IVC was slightly dilated, intraoperative EKG - Preop EK12/22/21. Sinus bradycardia. QTc 405. Disc T V1-V3, concordant v4- V6. No ST segment changes. - Postop EKG: T wave inversion in V5, V4, V3, equiv V6. QT prolongation 485. No ST segment depression/elevation - No family history of early cardiac disease, no family history of early strokes, no tobacco use, denies history of hypertension/hyperlipidemia Intra-Op received sevo, Versed, fentanyl, propofol, Lidoderm with initial propofol, glycopyrrolate x1, ephedrine x1 Somewhat soft blood pressures at baseline and preop improved with fluid, in PACU 103/64 Hemodynamically stable at bedside, without chest pain or clinical signs of ACS Discussion with cardiology - Overall low risk for coronary disease. Agree with obtaining electrolytes including mag/Phos, follow on telemetry overnight, obtain echo and single troponin. Follow clinically this time. Discussed by phone, if worsening or concerns will place oral consult in a.m. Seen after her colectomy, T wave inversions in V1 to V4 no risk factors for coronary artery disease. 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 No symptoms of angina or history of coronary artery disease. The patient needs close follow-up with PCP at discharge. Again explained to patient at length that primary care means health maintenance and regular visits with the PCP, not just as needed. Telemetry stopped 01/17 Still with no chest pain or SOB (2) Diverticulitis: Plan: Diverticulitis with abscess S/p Lap sigmoidectomy with end colostomy and with Urology assistance for stent/catheter placement for drainage of kidneys bilaterally and identification of ureters during complex Colorectal surgery Pain control, wound management, DVT prophylaxis per primary team (3) Kidney stones: Plan: Reassured about hematuria today. Urology have not seen her post stent removal. Will get U/A and C&S (patient was concerned and worried about a UTI) Gave on dose of Pyridium after U/A was collected (4) Colonic diverticular abscess: Plan: Now with colostomy Wound and Ostomy to evaluated patient yesterday Surgical drain per surgery is being removed later today and she will likely be discharged later today as well Plan Patient discussed with Dr Duval who assisted in the management of this patient Advised needs protein to help in the healing process Discussed need to follow up with PCP upon discharge Admission and Anticipated Discharge Date Admission Date: January 15, 2022 Subjective Patient is post op Day #4 She was evaluated by Ostomy team yesterday who was able to teach her how to care for her ostomy and she tells me that today she is feeling more confident and comfortable with her ostomy. She is tolerating a regular diet Surgery is planning to remove the ARNOLDO drain and discharge home later today. Review of Systems Constitutional: + anorexia; no fever and no chills Eyes: no blind spots, no diplopia and no spots in vision Ear, Nose, Mouth, Throat: no nasal congestion, no post nasal drip and no sinus pain/pressure Respiratory: no cough, no chest congestion and no dyspnea Cardiovascular: no chest pain, no dyspnea, no syncope and no edema Gastrointestinal: + diarrhea/loose stools; no nausea and no vomiting Genitourinary: no dysuria, no urinary hesitancy, no hematuria and no flank pain Integumentary: + wounds; no rash Psychiatric: + change in appetite and + anxiety; no irritability and no suicidal ideation Physical Exam Constitutional: WD/WN, vitals as above ENMT: external ear and nose normal, oropharynx normal Neck: trachea midline, no thyromegaly Respiratory: normal respiratory effort, lungs clear to auscultation Cardiovascular: RRR, no murmur, no edema Gastrointestinal (Abdomen): Inspection/Auscultation: normal bowel sounds and + abdominal surgical drain present Ostomy LLQ Skin: no rashes, warm and dry Psychiatric: A+Ox3, euthymic affect Results & Data Results & Data ([facility]) Vital Signs (Past 12 Hours) Vital Signs Temp Pulse Resp BP Pulse Ox O2 Del Method 01/19/22 06:45 36.9 C 93 H 18 109/67 96 Room Air 01/18/22 23:29 37.0 C 66 16 117/75 94 Room Air Laboratory Results Abnormal lab results 01/18/22 Range/Units 12:05 Urine Protein 1+ H (Negative) Urine Ketones Trace H (Negative) Urine Blood 3+ H (Negative) Ur Leukocyte Esterase Trace H (Negative) Urine RBC (Auto) >30 H (0-4) /hpf U Epithel Cells (Auto) 5-10 H (0-5) /lpf PG Care Time/CCT Total # of Minutes Spent Total Time Spent with Patient: Total time spent is greater than 50% in coordination of care (as documented) at patient's floor/unit and/or counseling patient: Coding [place] [address] Subseq Hosp Care Lvl 2 Patient Type Established History Expanded Problem Focused Exam Detailed Medical Decision Making Low Complexity Diagnoses Acute electrocardiogram changes R94.31 Diverticulitis K57.92 Kidney stones N20.0 Colonic diverticular abscess K57.20 Time Spent (min) 15
--- NOTE | 2022-01-25 02:17 | Discharge Summary ---
Date of Service January 25, 2022 Principal Diagnosis Diverticulosis/diverticulitis Discharge Data Allergies Allergy/AdvReac Type Severity Reaction Status Date / Time No Known Allergies Allergy Unknown Verified 01/15/22 09:04 Consultations 01/15/22 18:16 Consult Hospitalist Routine Procedures Performed Operation Date: 01/15/22 10:20 Actual Procedures p Laparoscopic Sigmoidectomy, with creation of ostomy(Not Applicable) - Fei Russell MD s Cystoscopy with bilateral stent insertion(Bilateral) - Fei Charles DO Hospital Course (1) Diverticulitis: (2) Colonic diverticular abscess: Plan Patient was admitted from home and taken to the operating room for a laparoscopic sigmoid colectomy, the details of which are dictated in a separate operative note. Of note, an active abscess and diverticulitis were found during the surgery, so the procedure was converted to a laparoscopic Ivory's procedure. Postoperatively she did well and was transferred in stable condition to the PACU and subsequently to the floor. Over her hospitalization, her diet was slowly advanced as tolerated. She was encouraged to ambulate. Pain was controlled with IV and then p.o. pain medications. DVT prophylaxis with SCD boots and Lovenox. She was taught how to use the ostomy appliance. By the date of discharge she was tolerating a regular diet, not requiring IV pain medications. Her drain was removed, and she was discharged home in stable condition. Total Time Total Time Spent Total Time Spent (In Minutes): 30 Discharge Plan Discharge Items Patient Disposition: Home - Home Health Services Reason For Visit: SIGMOID COLECTOMY Discharge Diagnosis: Laparoscopic sigmoid colectomy and ostomy Activity: Per Instructions section Non-emergency contact: Primary Care Provider and Surgeon Call non-emergency contact if: you have any medication questions, your pain is not controlled, your pain is worsening, your pain is concerning for you, you have a fever, your temperature is above 101, your wound has increased redness, your wound has increased drainage and your wound pain has increased Follow-up/Referrals: Fei Russell MD [Physician] - 01/24/22 12:45 pm Le Gutierrez MD [Primary Care Provider] - Diet: Regular Addtl Attending Provider Instructions: Post-Surgical ~Discharge Instructions Activity Recommendations: - lifting limitation: (20 pounds for 4 weeks), - exercise/sex/sports limit: (nonstrenuous for 2 weeks), - driving or machine use limit: (none for 1 week or until pain free and no longer taking narcotic pain medication), - Shower/bathe limit: (may shower) Diet: - Resume previous diet SPECIAL CARE INSTRUCTIONS: - May shower. Let water run over area and pat dry. - Surgical glue will fall off on its own. - Keep drain site covered and change daily or as needed to keep clean and dry. - Call the surgeon's office with any questions or concerns - - (ex. temperature higher than 101 degrees F, excessive bleeding or pain). MEDICATIONS: - Resume previous medications unless instructed otherwise by your surgeon. - May alternate extra strength Tylenol and Ibuprofen as needed for mild to moderate pain (For example, 650 mg of Tylenol and then 3 hours after can take Ibuprofen and then 3 hours after Ibuprofen can take another Tylenol) - 650 mg Tylenol every 6 hours as needed - 600 mg Ibuprofen every 6 hours as needed (take with food) Do not exceed 3,000 mg of Tylenol in a 24 hour period. Be cautious that each Percocet has 325 mg of Tylenol in it. - Percocet 1 every 6 hours, as needed for moderate to severe pain - Finish entire course of antibiotics as prescribed (5 days) - Narcotic pain medication can cause constipation. You may take daily stool softener (Colace) while taking narcotic pain medication if needed. Drink plenty of water daily. FOLLOW UP VISIT: - Follow-up visit is scheduled with Dr. Russell on Saturday01/24/2022 at 1:00 pm, please arrive at 12:45. Call office with any questions/concerns. [phone] Addtl Acid Splicer Provider Instructions: Recommend to follow up with your primary care physician in 1-2 weeks. The hospitalist service was consulted due to EKG changes post operatively. Repeat EKG then revealed the changes had resolved with normal electrolytes and normal troponin level. Pending Studies at Discharge: Yes (surgical pathology, will be reviewe at follow-up visit) Stand-Alone Forms: My [facility] [employer], Smoking Cessation Medications and DC Order Prescriptions: New amoxicillin-pot clavulanate 875-125 mg tablet 1 tab PO BID Qty: 10 0RF oxycodone-acetaminophen 5-325 mg tablet 1 tab PO Q6H PRN (Reason: pain) Qty: 12 0RF Continued docusate sodium [Stool Softener] 100 mg Capsule 100 mg PO QPM multivitamin Tablet 1 tab PO QAM acetaminophen 325 mg Tablet 325 mg PO DAILY PRN (Reason: Headache) Emergen-C 1,000 mg Powder Effervescent In Packet 1 ea PO QAM Discontinued neomycin 500 mg Tablet 500 mg PO ONCE Rx Instructions: take three times a day day before surgery metronidazole [Flagyl] 500 mg Tablet 500 mg PO ONCE Rx Instructions: 2 T three times a day day before surgery Discharge Orders: Discharge Order (Routine); Ordered 01/19/22 Ordered By: Shazia Lanza/Other Patient Handouts: Colectomy Total Abdom Dc Admission Data Admit Date/Time: 01/15/22 14:50 Attending Provider: Fei Russell Admit Provider: Fei Russell Primary Care Provider: Le Gutierrez Other Providers: Luis Schmid ; Chava Lee ; [facility] Other Interventions: Discharge Summary Assessment (RN) Last Done: 01/19/22 13:10
== END 2022-01-19 14:41 | disposition home health service (06) | DRG 331 ==
LOC: ASU 08:40 → PACUINP 14:50 → 2N 18:07 → 3N 01-18 01:45